=== PATIENT | male | born 1930 | race Caucasian/White ===

== ENCOUNTER 2018-04-29 08:11 | Inpatient (IN) | payer MEDICARE, OTHER ==
[~2018-04-29 08:11] MED LIST: Acetaminophen/oxyCODONE 325-5 MG Tab PO PRN; Bisacodyl 5 MG Tab PO PRN; Ketorolac 15 MG/ML SDV IVPUSH PRN; Lidocaine 1%/Sod Bicarbonate in NS 8.4% 1 ML Syringe IDERM PRN; Magnesium Hydroxide 400 MG/5 ML Susp 30 ML Cup PO PRN; Morphine 2 MG/ML Syringe IVPUSH PRN; Morphine 8 MG, EPINEPHrine 0.3 MG, Cefuroxime 750 MG, Ketorolac 30 MG, Sodium Chloride ... ONE; Naloxone 0.4 MG/ML SDV IVPUSH PRN; Ondansetron 4 MG/2 ML SDV IVPUSH PRN; Sennosides 8.6 MG Tab PO PRN; Sodium Chloride 0.9% 10 ML Syringe FLUSH PRN; ceFAZolin 2 GM in Premix Bag 1 BAG IV SCH
[2018-04-29] MEDS ORDERED: oxyCODONE ER 10 MG TAB.ER PO ONE (08:30)
[2018-04-29] MEDS ORDERED: Acetaminophen 325 MG Tab PO ONE (08:30)
[2018-04-29] MEDS ORDERED: ceFAZolin 1 GM Vial ONE ×2 (08:48→11:23)
[2018-04-29] MEDS ORDERED: Vancomycin 1 GM SDV ONE (08:48)
[2018-04-29] MEDS ORDERED: Bupivacaine 0.25% 30 ML SDV ONE (08:49)
[2018-04-29] MEDS ORDERED: Iodine/Sodium Iodide 2% Tincture 30 ML Bottle ONE (08:49)
[2018-04-29] MEDS: Lactated Ringers 1,000 ML IV SCH ×3 (08:50→14:02)
--- NOTE | 2018-04-29 08:55 | PCM.PREANE ---
Preanesthetic Assessment - Procedure Proposed Procedure: Left Hip Total Arthroplasty - Anesthesia/Transfusion/Family Hx Anesthesia History: Prior Anesthesia Without Reaction Family History of Anesthesia Reaction: No Transfusion History: No Prior Transfusion(s) - Review of Systems General: No Symptoms Pulmonary: No Symptoms Cardiovascular: No Symptoms Gastrointestinal: No Symptoms Neurological: No Symptoms Other: Reports: Easy Bleeding, Easy Bruising, Diabetes (II) - Physical Assessment NPO Status Date: 04/28/18 NPO Status Time: 19:30 Pulse: 72 O2 Sat by Pulse Oximetry: 94 Respiratory Rate: 16 Blood Pressure: 137/85 Temperature: 37.4 C Height: 1.68 m Weight: 85.275 kg ASA Class: 3 Mental Status: Alert & Oriented x3 Dentition: Reports: [place](s), Caries Thyro-Mental Finger Breadths: 2 Mouth Opening Finger Breadths: 2 ROM/Head Extension: Limited/Partial Lungs: Clear to Auscultation, Normal Respiratory Effort Cardiovascular: Regular Rate, Regular Rhythm - Imaging/EKG Impressions: sinus rhythm boarderline T abnormalities - Allergies Allergies/Adverse Reactions: Allergies Allergy/AdvReac Type Severity Reaction Status Date / Time No Known Allergies Allergy Verified 04/25/18 10:37 - Anesthesia Plan Pre-Op Medication Ordered: Beta Vinny Beta Vinny: Metoprolol Med Last Dose Date: 04/29/18 Med Last Dose Time: 00:00 - Acknowledgements Anesthesia Type Planned: Spinal Pt an Appropriate Candidate for the Planned Anesthesia: Yes Alternatives and Risks of Anesthesia Discussed w Pt/Guardian: Yes Pt/Guardian Understands and Agrees with Anesthesia Plan: Yes PreAnesthesia Questionnaire HEENT History: Reports: Cataract, Hard of Hearing, Other (See Below) Other HEENT History: Bilateral impacted cerumen, epistaxis Cardiovascular History: Reports: CAD, High Cholesterol, Hypertension, [place] Respiratory History: Reports: PE Other Gastrointestinal History: Abdominal pain, blood in stool, elevated bilirubin Genitourinary History: Reports: Other (See Below) Other Genitourinary History: Hematuria, urinary frequency Musculoskeletal History: Reports: Osteoarthritis Other Musculoskeletal History: Left hip pain, left hand pain, right rib pain Neurological History: Reports: Concussion Psychiatric History: Reports: Anxiety Endocrine/Metabolic History: Reports: Diabetes, Type II Hematologic History: Reports: Other (See Below) Other Hematologic History: Thrombocytopenia, blood clotting disorder Immunologic History: Reports: None Oncologic (Cancer) History: Reports: Other (See Below) Other Oncologic History: Neoplasm of skin Dermatologic History: Reports: Other (See Below) Other Dermatologic History: Abrasion of face, actinic keratosis, rash - Infectious Disease History Infectious Disease History: Reports: Measles - Past Surgical History Head Surgeries/Procedures: Reports: None HEENT Surgical History: Reports: Cataract Surgery Cardiovascular Surgical History: Reports: None Respiratory Surgical History: Reports: None GI Surgical History: Reports: Appendectomy Other GI Surgeries/Procedures: Abdominal surgery Male Surgical History: Reports: None Endocrine Surgical History: Reports: None Neurological Surgical History: Reports: None Other Musculoskeletal Surgeries/Procedures:: Right shoulder repair Oncologic Surgical History: Reports: None Dermatological Surgical History: Reports: None - SUBSTANCE USE Smoking Status *Q: Former Smoker Tobacco Use Within Last Twelve Months: No Second Hand Smoke Exposure: No Days Per Week of Alcohol Use: 0 Number of Drinks Per Day: 0 Total Drinks Per Week: 0 Recreational Drug Use History: No - HOME MEDS Home Medications: Home Meds FA/Lycopene/Lut/MV,Ca,Iron,Min [Centrum] 1 tab PO DAILY 09/20/16 [History] Finasteride 5 mg PO DAILY 09/20/16 [History] Isosorbide Mononitrate [Imdur] 30 mg PO DAILY 09/20/16 [History] Metoprolol Succinate 12.5 mg PO DAILY 09/20/16 [History] Simvastatin [Zocor] 40 mg PO BEDTIME 09/20/16 [History] Warfarin [Coumadin] 5 mg PO SUMOTUWEFRSA 09/20/16 [History] Warfarin [Coumadin] 7.5 mg PO TH 09/20/16 [History] Acetaminophen [Acetaminophen Extra Strength] 1,000 mg PO WITHLUNCH 04/25/18 [ History] Aspirin [Halfprin] 81 mg PO DAILY 04/25/18 [History] Hydrocortisone [Hydrocortisone 2.5% Crm] 1 applic RECTAL DAILY PRN 04/25/18 [ History] Nitroglycerin [Nitrostat] 0.4 mg SL ASDIRECTED PRN 04/25/18 [History] Tamsulosin [Tamsulosin 24 Hr] 0.4 mg PO DAILY 04/25/18 [History] traMADol [Ultram] 50 mg PO BID 04/25/18 [History] - CURRENT (IN HOUSE) MEDS Current Meds: Current Medications Bisacodyl (Dulcolax) 5 mg PO DAILY PRN PRN Reason: Constipation Docusate Sodium (Colace) 100 mg PO BID [facility] Famotidine (Pepcid) 20 mg PO Q12H [facility] Lactated Ringer's (Ringers, Lactated) 1,000 mls @ 125 mls/hr IV ASDIRECTED [facility] Ketorolac Tromethamine (Toradol) 15 mg IVPUSH Q6H PRN PRN Reason: Pain Lidocaine/Sodium Bicarbonate (Buffered Lidocaine 1% In Ns 8.4%) 0.25 ml IDERM ONETIME PRN PRN Reason: Prior to IV Start Stop: 04/29/18 18:00 Magnesium Hydroxide (Milk Of Magnesia) 30 ml PO BID PRN PRN Reason: Constipation Morphine Sulfate (Morphine) 2 mg IVPUSH Q2H PRN PRN Reason: Breakthrough Pain Naloxone HCl (Narcan) 0.1 mg IVPUSH Q5M PRN PRN Reason: Oversedation Ondansetron HCl (Zofran) 4 mg IVPUSH Q6H PRN PRN Reason: Nausea/Vomiting Oxycodone/Acetaminophen (Percocet 325-5 Mg) 1 - 2 tab PO Q4H PRN PRN Reason: Pain Pregabalin (Lyrica) 50 mg PO DAILY [facility] Stop: 04/29/18 11:00 Senna (Senna) 8.6 mg PO BID PRN PRN Reason: Constipation Sodium Chloride (Saline Flush) 10 ml FLUSH ASDIRECTED PRN PRN Reason: Keep Vein Open Warfarin Sodium (Pharmacy To Dose - Warfarin) 1 dose .XX ASDIRECTED [facility] Discontinued Medications Acetaminophen (Tylenol) 975 mg PO NOW ONE Stop: 04/29/18 08:31 Morphine Sulfate 8 mg/Epinephrine HCl 0.3 mg/Cefuroxime Sodium 750 mg/Ketorolac Tromethamine 30 mg/Sodium Chloride 27.9 ml 0 mg .XX ONETIME ONE Stop: 04/29/18 06:59 Cefazolin Sodium/Dextrose 2 gm (/ Premix) 50 mls @ 100 mls/hr IV Q8H [facility] Stop: 04/29/18 23:29 Oxycodone HCl (Oxycontin) 10 mg PO ONETIME ONE Stop: 04/29/18 08:31
[2018-04-29] MEDS ORDERED: Pregabalin 25 MG Cap PO SCH (09:00)
[2018-04-29] MEDS ORDERED: fentaNYL 100 MCG/2 ML SDV ONE (09:43)
[2018-04-29] MEDS ORDERED: Propofol 200 MG/20 ML SDV ONE ×3 (09:43→12:23)
[2018-04-29] MEDS ORDERED: Bupivacaine 0.75% 30 ML SDV ONE (09:48)
[2018-04-29] MEDS ORDERED: Ketamine 500 mg/10 ML MDV ONE (09:48)
[2018-04-29] MEDS ORDERED: Morphine PF 10 MG/10 ML SDV ONE (09:55)
[2018-04-29] MEDS ORDERED: ePHEDrine/Normal Saline 25 MG/5 ML Syringe ONE ×2 (11:05→11:25)
[2018-04-29] MEDS ORDERED: Phenylephrine/Normal Saline 100 MCG/ML 10 ML Syringe ONE ×2 (11:31→12:55)
[2018-04-29] MEDS ORDERED: Lactated Ringers 1,000 ML ONE (11:56)
[2018-04-29] MEDS ORDERED: diphenhydrAMINE 50 MG/ML SDV IVPUSH PRN (13:18)
--- NOTE | 2018-04-29 13:20 | PCM.POSTAN ---
POST ANESTHESIA ASSESSMENT - MENTAL STATUS Mental Status: Somnolent - VITAL SIGNS Pulse Rate: 77 SaO2: 95 Resp Rate: 19 Blood Pressure: 125/66 Temperature: 36.8 C - RESPIRATORY Respiratory Status: Respiratory Rate WNL, Airway Patent, O2 Saturation Stable, Supplemental Oxygen - CARDIOVASCULAR CV Status: Pulse Rate WNL, Blood Pressure Stable - GASTROINTESTINAL GI Status: No Symptoms - PAIN Pain Score: 0 - POST OP HYDRATION Hydration Status: Adequate & Stable - OBSERVATIONS Free Text/Narrative:: no anesthesia complications noted
[2018-04-29] MEDS ORDERED: Nitroglycerin 0.4 MG Tab.SL SL PRN (14:17)
[2018-04-29] MEDS ORDERED: HYDROCORTISONE 2.5% RECTAL PRN (14:17)
--- NOTE | 2018-04-29 14:22 | PCM.OPNOTE ---
- General Post-Op/Procedure Note Date of Surgery/Procedure: 04/29/18 Operative Procedure(s): left total hip arthroplasty Pre Op Diagnosis: left hip osteoarthrosis Post-Op Diagnosis: Same Anesthesia Technique: Local, MAC, Spinal Primary Surgeon: Edgardo Boo Anesthesia Provider: Malcom Trujillo Gre Tutor: Kristen Villatoro Gre Tutor: Rianna Finley EBL in mLs: 350 Complications: None Condition: Good Free Text/Narrative:: Intake & Output 04/28/18 04/29/18 04/29/18 22:59 06:59 14:59 Intake Total 600 Output Total 675 Balance -75 size 62 cup size 6 stem 42 +0
--- NOTE | 2018-04-29 15:28 | PCM.CONS ---
H&P History of Present Illness - General Date of Service: 04/29/18 Admit Problem/Dx: Admission Diagnosis/Problem Admission Diagnosis/Problem Osteoarthritis of hip Source of Information: Patient, Old Records, Provider, RN, RN Notes Reviewed History Limitations: Reports: No Limitations - History of Present Illness Initial Comments - Free Text/Narative: Abraham Griffin is a 87 yo male patient of Dr. Boo who is post-operative day 0 of Left JENNA. Hospital medicine was consulted for post-operative medical care. At this time He is lying in bed. Pain is controlled and currently absent. He denies any chest pain, shortness of breath, palpitations, nausea or vomiting. He carries a history of: WRANGELL, CAD, HLD, HTN, LA, PE, OA, hematuria, anxiety, Type II DM, thrombocytopenia, prostate ca, mild aortic stenosis, defect, clotting disorder, neoplasm of skin, prostate cancer, measles, anxiety. He is a former smoker. He is a full code. His primary care provider is Terri Rosario PA-C in [place]. - Related Data Allergies/Adverse Reactions: Allergies Allergy/AdvReac Type Severity Reaction Status Date / Time No Known Allergies Allergy Verified 04/29/18 10:09 Home Medications: Home Meds FA/Lycopene/Lut/MV,Ca,Iron,Min [Centrum] 1 tab PO DAILY 09/20/16 [History] Finasteride 5 mg PO DAILY 09/20/16 [History] Isosorbide Mononitrate [Imdur] 30 mg PO DAILY 09/20/16 [History] Metoprolol Succinate 12.5 mg PO DAILY 09/20/16 [History] Simvastatin [Zocor] 40 mg PO BEDTIME 09/20/16 [History] Warfarin [Coumadin] 5 mg PO SUMOTUWEFRSA 09/20/16 [History] Warfarin [Coumadin] 7.5 mg PO TH 09/20/16 [History] Aspirin [Halfprin] 81 mg PO DAILY 04/25/18 [History] Hydrocortisone [Hydrocortisone 2.5% Crm] 1 applic RECTAL DAILY PRN 04/25/18 [ History] Nitroglycerin [Nitrostat] 0.4 mg SL ASDIRECTED PRN 04/25/18 [History] Tamsulosin [Tamsulosin 24 Hr] 0.4 mg PO DAILY 04/25/18 [History] traMADol [Ultram] 50 mg PO Q6H 04/25/18 [History] Timolol Maleate [Timoptic 0.5% Opth Soln] 5 ml OP DAILY 04/29/18 [History] Past Medical History HEENT History: Reports: Cataract, Hard of Hearing, Other (See Below) Other HEENT History: Bilateral impacted cerumen, epistaxis Cardiovascular History: Reports: CAD, High Cholesterol, Hypertension, [place] Respiratory History: Reports: PE Other Gastrointestinal History: Abdominal pain, blood in stool, elevated bilirubin Genitourinary History: Reports: BPH, Other (See Below) Other Genitourinary History: Hematuria, urinary frequency Musculoskeletal History: Reports: Osteoarthritis Other Musculoskeletal History: Left hip pain, left hand pain, right rib pain Neurological History: Reports: Concussion Psychiatric History: Reports: Anxiety Endocrine/Metabolic History: Reports: Diabetes, Type II Hematologic History: Reports: Other (See Below) Other Hematologic History: Thrombocytopenia, blood clotting disorder Immunologic History: Reports: None Oncologic (Cancer) History: Reports: Prostate, Other (See Below) Other Oncologic History: Neoplasm of skin Dermatologic History: Reports: Other (See Below) Other Dermatologic History: Abrasion of face, actinic keratosis, rash - Infectious Disease History Infectious Disease History: Reports: Measles - Past Surgical History Head Surgeries/Procedures: Reports: None HEENT Surgical History: Reports: Cataract Surgery Cardiovascular Surgical History: Reports: None Respiratory Surgical History: Reports: None GI Surgical History: Reports: Appendectomy Other GI Surgeries/Procedures: Abdominal surgery Other Male Surgeries/Procedures: prostate biopsy. Endocrine Surgical History: Reports: None Neurological Surgical History: Reports: None Musculoskeletal Surgical History: Reports: Shoulder Replacement Other Musculoskeletal Surgeries/Procedures:: Right shoulder repair Oncologic Surgical History: Reports: None Dermatological Surgical History: Reports: None Social & Family History - Family History Family Medical History: Noncontributory Cardiac: Reports: High Cholesterol, [place] Endocrine/Metabolic: Reports: Diabetes, Type I Oncologic: Reports: Other (See Below) Other Oncologic Family History: 2 sisters have cancer, unknown type - Tobacco Use Smoking Status *Q: Former Smoker Used Tobacco, but Quit: Yes Month/Year Tobacco Last Used: 1959 Tobacco Use Comment: "Quit 50-60 years ago" Second Hand Smoke Exposure: No - Caffeine Use Caffeine Use: Reports: None - Alcohol Use Days Per Week of Alcohol Use: 0 Number of Drinks Per Day: 0 Total Drinks Per Week: 0 - Recreational Drug Use Recreational Drug Use: No Drug Use in Last 12 Months: No - Living Situation & Occupation Living situation: Reports: Other, Single H&P Review of Systems - Review of Systems: Review Of Systems: See Below General: Reports: No Symptoms HEENT: Reports: No Symptoms Pulmonary: Reports: No Symptoms. Denies: Shortness of Breath, Wheezing, Cough Cardiovascular: Reports: No Symptoms. Denies: Chest Pain, Dyspnea on Exertion, Edema, Lightheadedness Gastrointestinal: Reports: No Symptoms. Denies: Abdominal Pain, Constipation, Diarrhea, Nausea, Vomiting Genitourinary: Reports: No Symptoms Musculoskeletal: Reports: Joint Pain Skin: Reports: No Symptoms Psychiatric: Reports: No Symptoms Neurological: Reports: No Symptoms Hematologic/Lymphatic: Reports: No Symptoms Immunologic: Reports: No Symptoms Exam - Exam Exam: See Below - Vital Signs Vital Signs: Last Vital Signs Temp 98.1 F 04/29/18 14:30 Pulse 65 04/29/18 14:30 Resp 18 04/29/18 14:30 BP 102/63 04/29/18 14:30 Pulse Ox 96 04/29/18 14:30 Weight: 188 lb - Exam Quality Assessment: Supplemental Oxygen, DVT Prophylaxis General: Alert, Oriented, Cooperative, Mild Distress HEENT: Conjunctiva Clear, EACs Clear, EOMI, Hearing Intact, Mucosa Moist & [place] , Nares Patent, Posterior Pharynx Clear, PERRLA Neck: Supple, Trachea Midline Lungs: Clear to Auscultation, Normal Respiratory Effort Cardiovascular: Regular Rate, Regular Rhythm GI/Abdominal Exam: Normal Bowel Sounds, Soft, Non-Tender, No Distention (Male) Exam: Deferred Rectal (Males) Exam: Deferred Back Exam: Normal Inspection, Full Range of Motion Extremities: No Pedal Edema, Normal Capillary Refill, Leg Pain, Limited Range of Motion, Other ([place] bandae in place on left leg. Bandage is dry and intact. Cooling pack in place ) Peripheral Pulses: 2+: Radial (L), Radial (R), Posterior Tibial (L), Posterior Tibial (R), Dorsalis Pedis (L), Dorsalis Pedis (R) Skin: Warm, Dry, Intact Neurological: Cranial Nerves Intact (grossly ) Neuro Extensive - Mental Status: Alert, Oriented x3, Normal Mood/Affect, Normal Cognition Psychiatric: Alert, Normal Affect, Normal Mood - Patient Data Lab Results Last 24 hrs: Laboratory Results - last 24 hr 04/29/18 04/29/18 04/29/18 Range/Units 08:50 08:50 10:24 WBC 7.09 (4.23-9.07) K/mm3 RBC 4.23 L (4.63-6.08) M/mm3 Hgb 13.9 (13.7-17.5) gm/L Hct 41.9 (40.1-51.0) % MCV 99.1 H (79.0-92.2) fl MCH 32.9 H (25.7-32.2) pg MCHC 33.2 (32.2-35.5) g/dl RDW Std Deviation 50.6 H (35.1-43.9) fL Plt Count 146 L (163-337) K/mm3 MPV 10.8 (9.4-12.3) fl Neut % (Auto) 67.9 (34.0-67.9) % Lymph % (Auto) 21.0 L (21.8-53.1) % [place] % (Auto) 9.4 (5.3-12.2) % Eos % (Auto) 1.0 (0.8-7.0) Baso % (Auto) 0.4 (0.1-1.2) % Neut # (Auto) 4.81 (1.78-5.38) K/mm3 Lymph # (Auto) 1.49 (1.32-3.57) K/mm3 [place] # (Auto) 0.67 (0.30-0.82) K/mm3 Eos # (Auto) 0.07 (0.04-0.54) K/mm3 Baso # (Auto) 0.03 (0.01-0.08) K/mm3 PT 10.7 (9.5-12.1) SECONDS INR 0.98 APTT 26 (24-31) SECONDS POC Glucose (83-110) mg/dL Blood Type A POSITIVE Gel Antibody Screen Negative 04/29/18 Range/Units 13:35 WBC (4.23-9.07) K/mm3 RBC (4.63-6.08) M/mm3 Hgb (13.7-17.5) gm/L Hct (40.1-51.0) % MCV (79.0-92.2) fl MCH (25.7-32.2) pg MCHC (32.2-35.5) g/dl RDW Std Deviation (35.1-43.9) fL Plt Count (163-337) K/mm3 MPV (9.4-12.3) fl Neut % (Auto) (34.0-67.9) % Lymph % (Auto) (21.8-53.1) % [place] % (Auto) (5.3-12.2) % Eos % (Auto) (0.8-7.0) Baso % (Auto) (0.1-1.2) % Neut # (Auto) (1.78-5.38) K/mm3 Lymph # (Auto) (1.32-3.57) K/mm3 [place] # (Auto) (0.30-0.82) K/mm3 Eos # (Auto) (0.04-0.54) K/mm3 Baso # (Auto) (0.01-0.08) K/mm3 PT (9.5-12.1) SECONDS INR APTT (24-31) SECONDS POC Glucose 118 H (83-110) mg/dL Blood Type Gel Antibody Screen Result Diagrams: 04/29/18 10:24 Consult PN Assessment/Plan POD#: 0 Procedures: Procedures ANTITHROMBIN III ACTIVITY (12/05/16) ASSAY OF CK (CPK) (05/05/15) ASSAY OF HOMOCYSTINE (12/05/16) ASSAY OF LACTIC ACID (05/02/16) ASSAY OF LIPASE (05/02/16) ASSAY OF MAGNESIUM (05/02/16) ASSAY OF TROPONIN QUANT (09/20/16) ASSAY THYROID STIM HORMONE (10/03/16) BETA-2 GLYCOPROTEIN ANTIBODY (12/05/16) BILIRUBIN DIRECT (06/14/16) BILIRUBIN TOTAL (05/02/16) C DIFF AMPLIFIED PROBE (05/10/16) C-REACTIVE PROTEIN (05/02/16) CARDIOLIPIN ANTIBODY EA IG (12/05/16) CHEST X-RAY 1 VIEW FRONTAL (09/20/16) CHEST X-RAY 2VW FRONTAL&LATL (05/02/16) CLOT INHIBIT PROT C ACTIVITY (12/05/16) CLOT INHIBIT PROT S FREE (12/05/16) COMPLETE CBC AUTOMATED (08/22/17) COMPLETE CBC W/AUTO DIFF WBC (09/21/17) COMPREHEN METABOLIC PANEL (04/15/18) CT ABD & PELV W/CONTRAST (05/02/16) CULTURE AEROBIC IDENTIFY (04/07/15) CULTURE OTHR SPECIMN AEROBIC (04/07/15) DRAIN/INJ JOINT/BURSA W/O US (03/12/18) DXA BONE DENSITY AXIAL (04/24/18) ECHO EXAM OF ABDOMEN (05/02/16) ELECTROCARDIOGRAM TRACING (09/20/16) EMERGENCY DEPT VISIT (09/20/16) F2 GENE (12/05/16) F5 GENE (12/05/16) FIBRIN DEGRADATION QUANT (09/20/16) GLYCOSYLATED HEMOGLOBIN TEST (08/08/17) HEMOGLOBIN (05/23/16) HEPATOBIL SYST IMAGE W/DRUG (05/02/16) HYDRATE IV INFUSION ADD-ON (05/02/16) HYDRATION IV INFUSION INIT (09/20/16) LIPID PANEL (04/09/17) METABOLIC PANEL TOTAL CA (08/22/17) MICROBE SUSCEPTIBLE ALFONSO (04/07/15) MR-STAPH DNA AMP PROBE (04/15/18) OT EVALUATION (05/02/16) PROTHROMBIN TIME (04/24/18) PT EVALUATION (05/02/16) RBC SED RATE AUTOMATED (05/02/16) ROUTINE VENIPUNCTURE (04/24/18) CHAPO VIPER VENOM DILUTED (12/05/16) THER/PROPH/DIAG INJ IV PUSH (05/02/16) THER/PROPH/DIAG INJ SC/IM (05/02/16) THROMBOPLASTIN TIME PARTIAL (12/05/16) TTE W/DOPPLER COMPLETE (04/24/18) TX/PRO/DX INJ NEW DRUG ADDON (05/02/16) UR ALBUMIN QUANTITATIVE (04/09/17) URINALYSIS AUTO W/O SCOPE (06/16/15) URINALYSIS AUTO W/SCOPE (09/20/16) URINE CULTURE/COLONY COUNT (04/15/18) VANOMYCIN DNA AMP PROBE (05/10/16) X-RAY EXAM CHEST 2 VIEWS (04/15/18) X-RAY EXAM OF HAND (12/22/14) X-RAY EXAM UNILAT RIBS/CHEST (03/27/18) (1) S/P total hip arthroplasty SNOMED Code(s): 191692009206, 547638704512 Code(s): Z96.649 - PRESENCE OF UNSPECIFIED ARTIFICIAL HIP JOINT Priority: High Current Visit: Yes Qualifiers: Laterality: left Qualified Code(s): Z96.642 - Presence of left artificial hip joint (2) Osteoarthritis SNOMED Code(s): 293862187 Code(s): M19.90 - UNSPECIFIED OSTEOARTHRITIS, UNSPECIFIED SITE Priority: High Current Visit: Yes Qualifiers: Osteoarthritis location: hip Osteoarthritis type: primary Laterality: left Qualified Code(s): M16.12 - Unilateral primary osteoarthritis, left hip (3) History of myocardial infarction SNOMED Code(s): 066695146 Code(s): I25.2 - OLD MYOCARDIAL INFARCTION Priority: Medium Current Visit : No (4) CAD (coronary artery disease) SNOMED Code(s): 32127155 Code(s): I25.10 - ATHSCL HEART DISEASE OF [place] CORONARY ARTERY W/O ANG PCTRS Priority: Medium Current Visit: No Qualifiers: Coronary Disease-Associated Artery/Lesion type: unspecified vessel or lesion type Associated angina: angina presence unspecified (5) HLD (hyperlipidemia) SNOMED Code(s): 71353108 Code(s): E78.5 - HYPERLIPIDEMIA, UNSPECIFIED Priority: Medium Current Visit: No Qualifiers: Hyperlipidemia type: unspecified Qualified Code(s): E78.5 - Hyperlipidemia , unspecified (6) HTN (hypertension) SNOMED Code(s): 17260194 Code(s): I10 - ESSENTIAL (PRIMARY) HYPERTENSION Priority: Medium Current Visit: No Qualifiers: Hypertension type: unspecified Qualified Code(s): I10 - Essential (primary ) hypertension (7) History of pulmonary embolism SNOMED Code(s): 549123842 Code(s): Z86.711 - PERSONAL HISTORY OF PULMONARY EMBOLISM Priority: Medium Current Visit: No (8) Thrombocytopenia SNOMED Code(s): 445950696 Code(s): D69.6 - THROMBOCYTOPENIA, UNSPECIFIED Priority: Medium Current Visit: No (9) Type II diabetes mellitus SNOMED Code(s): 58224193 Code(s): E11.9 - TYPE 2 DIABETES MELLITUS WITHOUT COMPLICATIONS Priority: High Current Visit: Yes Qualifiers: Diabetes mellitus detention insulin 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 Diabetes mellitus complication status: with unspecified complications Qualified Code(s) : E11.8 - Type 2 diabetes mellitus with unspecified complications; Z79.4 - terminal operations supervisor (current) use of insulin (10) Anxiety SNOMED Code(s): 60401985 Code(s): F41.9 - ANXIETY DISORDER, UNSPECIFIED Priority: Medium Current Visit: No (11) History of prostate cancer SNOMED Code(s): 797060983 Code(s): Z85.46 - PERSONAL HISTORY OF MALIGNANT NEOPLASM OF PROSTATE Priority: Medium Current Visit: No Problem List Initiated/Reviewed/Updated: Yes Plan: I/P: Acute: S/P left total knee arthroplasty - post-operative day 0 -DVT prophylaxis and pain management per primary care team -PT/OT -IS/RT -Monitor oxygen saturation -Titrate oxygen as needed -Vital signs stable -Monitor labs -Pre-operative Hgb was 15.3 -Pre-operative platelets was 104 -Pre-operative eGFR was >60 -A1C of 6.65 Osteoarthritis of left knee -Pain management per primary care team Chronic: WRANGELL CAD HLD HTN LA PE OA hematuria anxiety Type II DM thrombocytopenia prostate cancer mild aortic stenosis defect clotting disorder neoplasm of skin prostate cancer measles anxiety Plan: CM for discharge planning GI prophylaxis Home medications as indicated Other orders as listed above Routine AM labs He is a full code. His PCP is Terri Rosario PA-C in [place]. Thank you for allowing us to participate in the care of this patient!! Requesting Provider: Dr. Boo Date Consult Requested: 04/29/18 Reason for Consult: Post-operative medical managment Patient History Reviewed: Yes Admission H&P Reviewed: Yes Time Spent (in minutes): 50
--- NOTE | 2018-04-29 16:43 | CR ---
Pelvis and left hip: AP view of the pelvis was obtained as well as lateral view of the left hip. Moderate joint space narrowing is noted within the right hip. Left hip prosthesis is seen. Bony structures are osteopenic. No acute fracture or other bony abnormality is seen. Soft tissue air is noted around the left hip compatible with recent surgery. Impression: 1. Recently placed left hip prosthesis. 2. Other incidental findings. Diagnostic code #3
[2018-04-29] MEDS: Enoxaparin 30 MG/0.3 ML Syringe SUBCUT SCH (17:21)
[2018-04-29] MEDS ORDERED: Warfarin 5 MG Tab PO ONE (18:00)
[2018-04-29] MEDS: Famotidine 20 MG Tab PO SCH (21:25)
[2018-04-29] MEDS: traMADol 50 MG Tab PO SCH (21:25)
[2018-04-29] MEDS: Simvastatin 40 MG Tab PO SCH (21:25)
[2018-04-29] MEDS: Docusate Sodium 100 MG Cap PO SCH (21:25)
[2018-04-30] MEDS: Acetaminophen/HYDROcodone 325-5 MG Tab PO PRN ×4 (02:51→22:08)
[2018-04-30] MEDS: ceFAZolin 2 GM in Premix Bag 1 BAG IV SCH ×3 (02:59→18:18)
[2018-04-30] MEDS: Enoxaparin 30 MG/0.3 ML Syringe SUBCUT SCH ×2 (03:48→16:40)
--- NOTE | 2018-04-30 06:27 | PCM.CONSN ---
- General Info Date of Service: 04/30/18 Admission Dx/Problem (Free Text): Admission Diagnosis/Problem Admission Diagnosis/Problem Osteoarthritis of hip Subjective Update: In to see Brother Elias. He is doing ok and has been working with therapies. He reports pain of 40-50/10 currently after working with PT/OT but does not appear to be in any obvious pain. Nursing reports patient has just had pain pill. 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 He has been eating. He is not on any oxygen and doing well on room air. Likely discharge for SNF rehab stay. Functional Status: Reports: Pain Controlled, Tolerating Diet, Ambulating, Urinating, Incentive Spirometry. Denies: New Symptoms - Review of Systems General: Reports: No Symptoms HEENT: Reports: No Symptoms Pulmonary: Reports: No Symptoms Cardiovascular: Reports: No Symptoms Gastrointestinal: Reports: No Symptoms Genitourinary: Reports: Incontinence (chronic ), Retention (acute on chronic ). Denies: Burning, Pain Musculoskeletal: Reports: Joint Pain Skin: Reports: No Symptoms Neurological: Reports: No Symptoms Psychiatric: Reports: No Symptoms - Patient Data Vitals - Most Recent: Last Vital Signs Temp 98.1 F 04/30/18 03:24 Pulse 55 L 04/30/18 03:24 Resp 16 04/30/18 05:00 BP 100/58 L 04/30/18 03:24 Pulse Ox 97 04/30/18 05:00 Weight - Most Recent: 192 lb 12.8 oz I&O - Last 24 Hours: Intake & Output 04/29/18 04/29/18 04/30/18 14:59 22:59 06:59 Intake Total 600 0 850 Output Total 675 300 Balance -75 0 550 Lab Results Last 24 Hours: Laboratory Results - last 24 hr 04/29/18 04/29/18 04/29/18 Range/Units 08:50 08:50 10:24 WBC 7.09 (4.23-9.07) K/mm3 RBC 4.23 L (4.63-6.08) M/mm3 Hgb 13.9 (13.7-17.5) gm/L Hct 41.9 (40.1-51.0) % MCV 99.1 H (79.0-92.2) fl MCH 32.9 H (25.7-32.2) pg MCHC 33.2 (32.2-35.5) g/dl RDW Std Deviation 50.6 H (35.1-43.9) fL Plt Count 146 L (163-337) K/mm3 MPV 10.8 (9.4-12.3) fl Neut % (Auto) 67.9 (34.0-67.9) % Lymph % (Auto) 21.0 L (21.8-53.1) % Desha % (Auto) 9.4 (5.3-12.2) % Eos % (Auto) 1.0 (0.8-7.0) Baso % (Auto) 0.4 (0.1-1.2) % Neut # (Auto) 4.81 (1.78-5.38) K/mm3 Lymph # (Auto) 1.49 (1.32-3.57) K/mm3 Desha # (Auto) 0.67 (0.30-0.82) K/mm3 Eos # (Auto) 0.07 (0.04-0.54) K/mm3 Baso # (Auto) 0.03 (0.01-0.08) K/mm3 PT 10.7 (9.5-12.1) SECONDS INR 0.98 APTT 26 (24-31) SECONDS POC Glucose (83-110) mg/dL Blood Type A POSITIVE Gel Antibody Screen Negative 04/29/18 Range/Units 13:35 WBC (4.23-9.07) K/mm3 RBC (4.63-6.08) M/mm3 Hgb (13.7-17.5) gm/L Hct (40.1-51.0) % MCV (79.0-92.2) fl MCH (25.7-32.2) pg MCHC (32.2-35.5) g/dl RDW Std Deviation (35.1-43.9) fL Plt Count (163-337) K/mm3 MPV (9.4-12.3) fl Neut % (Auto) (34.0-67.9) % Lymph % (Auto) (21.8-53.1) % Desha % (Auto) (5.3-12.2) % Eos % (Auto) (0.8-7.0) Baso % (Auto) (0.1-1.2) % Neut # (Auto) (1.78-5.38) K/mm3 Lymph # (Auto) (1.32-3.57) K/mm3 Desha # (Auto) (0.30-0.82) K/mm3 Eos # (Auto) (0.04-0.54) K/mm3 Baso # (Auto) (0.01-0.08) K/mm3 PT (9.5-12.1) SECONDS INR APTT (24-31) SECONDS POC Glucose 118 H (83-110) mg/dL Blood Type Gel Antibody Screen Med Orders - Current: Current Medications Hydrocodone Bitart/Acetaminophen ([place] 325-5 Mg) 1 - 2 tab PO Q4H PRN PRN Reason: Pain Last Admin: 04/30/18 02:51 Dose: 2 tab Aspirin (Halfprin) 81 mg PO DAILY [facility] Bisacodyl (Dulcolax) 5 mg PO DAILY PRN PRN Reason: Constipation Docusate Sodium (Colace) 100 mg PO BID [facility] Last Admin: 04/29/18 21:25 Dose: 100 mg Enoxaparin Sodium (Lovenox) 30 mg SUBCUT Q12H [facility] Last Admin: 04/30/18 03:48 Dose: 30 mg Famotidine (Pepcid) 20 mg PO Q12H [facility] Last Admin: 04/29/18 21:25 Dose: 20 mg Finasteride (Proscar) 5 mg PO DAILY [facility] Cefazolin Sodium/Dextrose 2 gm (/ Premix) 50 mls @ 100 mls/hr IV Q8H [facility] Stop: 04/30/18 19:29 Last Admin: 04/30/18 02:59 Dose: 100 mls/hr Isosorbide Mononitrate (Imdur) 30 mg PO DAILY [facility] Ketorolac Tromethamine (Toradol) 15 mg IVPUSH Q6H PRN PRN Reason: Pain Magnesium Hydroxide (Milk Of Magnesia) 30 ml PO BID PRN PRN Reason: Constipation Metoprolol Succinate (Toprol Xl) 12.5 mg PO DAILY [facility] Morphine Sulfate (Morphine) 2 mg IVPUSH Q2H PRN PRN Reason: Breakthrough Pain Multivitamins (Thera) 1 each PO DAILY [facility] Nitroglycerin (Nitrostat) 0.4 mg SL ASDIRECTED PRN PRN Reason: Chest Pain Ondansetron HCl (Zofran) 4 mg IVPUSH Q6H PRN PRN Reason: Nausea/Vomiting Hydrocortisone 2.5% (1 Applic) 0 each RECTAL DAILY PRN PRN Reason: Hemorrhoids Senna (Senna) 8.6 mg PO BID PRN PRN Reason: Constipation Simvastatin (Zocor) 40 mg PO BEDTIME [facility] Last Admin: 04/29/18 21:25 Dose: 40 mg Sodium Chloride (Saline Flush) 10 ml FLUSH ASDIRECTED PRN PRN Reason: Keep Vein Open Tamsulosin HCl (Flomax) 0.4 mg PO DAILY [facility] Tramadol HCl (Ultram) 50 mg PO BID [facility] Last Admin: 04/29/18 21:25 Dose: 50 mg Warfarin Sodium (Pharmacy To Dose - Warfarin) 1 dose .XX ASDIRECTED [facility] Discontinued Medications Acetaminophen (Tylenol) 975 mg PO NOW ONE Stop: 04/29/18 08:31 Last Admin: 04/29/18 10:30 Dose: 975 mg Bupivacaine HCl (Marcaine 0.25%) Confirm Administered Dose 30 ml .ROUTE .STK- MED ONE Stop: 04/29/18 08:50 Last Admin: 04/29/18 12:43 Dose: 30 ml Bupivacaine HCl (Sensorcaine-Mpf 0.75%) Confirm Administered Dose 30 ml .ROUTE .STK-MED ONE Stop: 04/29/18 09:49 Cefazolin Sodium (Ancef) Confirm Administered Dose 2 gm .ROUTE .STK-MED ONE Stop: 04/29/18 08:49 Cefazolin Sodium (Ancef) Confirm Administered Dose 2 gm .ROUTE .STK-MED ONE Stop: 04/29/18 11:24 Last Admin: 04/29/18 12:37 Dose: 2 gm Morphine Sulfate 8 mg/Epinephrine HCl 0.3 mg/Cefuroxime Sodium 750 mg/Ketorolac Tromethamine 30 mg/Sodium Chloride 27.9 ml 0 mg .XX ONETIME ONE Stop: 04/29/18 06:59 Last Admin: 04/29/18 12:42 Dose: 788.3 mg Diphenhydramine HCl (Benadryl) 25 mg IVPUSH Q6H PRN PRN Reason: Itching Stop: 04/29/18 23:00 Ephedrine Sulfate (Ephedrine In Ns) Confirm Administered Dose 25 mg .ROUTE .STK- MED ONE Stop: 04/29/18 11:06 Ephedrine Sulfate (Ephedrine In Ns) Confirm Administered Dose 25 mg .ROUTE .STK- MED ONE Stop: 04/29/18 11:26 Fentanyl (Sublimaze) Confirm Administered Dose 100 mcg .ROUTE .STK-MED ONE Stop: 04/29/18 09:44 Lactated Ringer's (Ringers, Lactated) 1,000 mls @ 125 mls/hr IV ASDIRECTED [facility] Last Admin: 04/29/18 14:02 Dose: 125 mls/hr Cefazolin Sodium/Dextrose 2 gm (/ Premix) 50 mls @ 100 mls/hr IV Q8H [facility] Stop: 04/29/18 23:29 Last Admin: 04/30/18 02:53 Dose: Not Given Lactated Ringer's (Ringers, Lactated) Confirm Administered Dose 1,000 mls @ as directed .ROUTE .STK-MED ONE Stop: 04/29/18 11:57 Iodine (Iodine 2% Mild Tincture) Confirm Administered Dose 30 ml .ROUTE .STK- MED ONE Stop: 04/29/18 08:50 Last Admin: 04/29/18 12:35 Dose: 18 ml Ketamine HCl (Ketalar) Confirm Administered Dose 500 mg .ROUTE .STK-MED ONE Stop: 04/29/18 09:49 Lidocaine/Sodium Bicarbonate (Buffered Lidocaine 1% In Ns 8.4%) 0.25 ml IDERM ONETIME PRN PRN Reason: Prior to IV Start Stop: 04/29/18 18:00 Morphine Sulfate (Duramorph Pf) Confirm Administered Dose 10 mg .ROUTE .STK-MED ONE Stop: 04/29/18 09:56 Naloxone HCl (Narcan) 0.1 mg IVPUSH Q5M PRN PRN Reason: Oversedation Oxycodone HCl (Oxycontin) 10 mg PO ONETIME ONE Stop: 04/29/18 08:31 Last Admin: 04/29/18 10:30 Dose: 10 mg Oxycodone/Acetaminophen (Percocet 325-5 Mg) 1 - 2 tab PO Q4H PRN PRN Reason: Pain Phenylephrine HCl (Phenylephrine In Ns 100 Mcg/Ml) Confirm Administered Dose 1 mg .ROUTE .STK-MED ONE Stop: 04/29/18 11:32 Phenylephrine HCl (Phenylephrine In Ns 100 Mcg/Ml) Confirm Administered Dose 1 mg .ROUTE .STK-MED ONE Stop: 04/29/18 12:56 Pregabalin (Lyrica) 50 mg PO DAILY [facility] Stop: 04/29/18 11:00 Last Admin: 04/29/18 10:30 Dose: 50 mg Propofol (Diprivan 20 Ml) Confirm Administered Dose 200 mg .ROUTE .STK-MED ONE Stop: 04/29/18 09:44 Propofol (Diprivan 20 Ml) Confirm Administered Dose 200 mg .ROUTE .STK-MED ONE Stop: 04/29/18 11:37 Propofol (Diprivan 20 Ml) Confirm Administered Dose 200 mg .ROUTE .STK-MED ONE Stop: 04/29/18 12:24 Tranexamic Acid (Cyklokapron) Confirm Administered Dose 1,000 mg .ROUTE .STK- MED ONE Stop: 04/29/18 08:49 Last Admin: 04/29/18 12:44 Dose: 1,000 mg Vancomycin HCl (Vancomycin) Confirm Administered Dose 1 gm .ROUTE .STK-MED ONE Stop: 04/29/18 08:49 Last Admin: 04/29/18 12:45 Dose: 1 gm Warfarin Sodium (Coumadin) 5 mg PO ONETIME ONE Stop: 04/29/18 18:01 Last Admin: 04/29/18 17:21 Dose: 5 mg - Exam Quality Assessment: DVT Prophylaxis General: Alert, Oriented, Cooperative HEENT: Pupils Equal, Pupils Reactive, EOMI, Mucous Membr. Moist/[place] Neck: Supple, Trachea Midline, No JVD Lungs: Clear to Auscultation, Normal Respiratory Effort Cardiovascular: Regular Rate, Regular Rhythm GI/Abdominal Exam: Normal Bowel Sounds, Soft, Non-Tender, No Distention (Male) Exam: Deferred Back Exam: Normal Inspection, Full Range of Motion Extremities: No Pedal Edema, Normal Capillary Refill, Leg Pain, Limited Range of Motion, Other (Bandage in place on left leg. Cooling pack in place ) Peripheral Pulses: 2+: Radial (L), Radial (R), Posterior Tibial (L), Posterior Tibial (R), Dorsalis Pedis (L), Dorsalis Pedis (R) Skin: Warm, Dry, Intact Wound/Incisions: Dressing Dry and Intact, No Drainage Neurological: No New Focal Deficit Psy/Mental Status: Alert, Normal Affect, Normal Mood Consult PN Assessment/Plan POD#: 1 Procedures: Procedures ANTITHROMBIN III ACTIVITY (12/05/16) ASSAY OF CK (CPK) (05/05/15) ASSAY OF HOMOCYSTINE (12/05/16) ASSAY OF LACTIC ACID (05/02/16) ASSAY OF LIPASE (05/02/16) ASSAY OF MAGNESIUM (05/02/16) ASSAY OF TROPONIN QUANT (09/20/16) ASSAY THYROID STIM HORMONE (10/03/16) BETA-2 GLYCOPROTEIN ANTIBODY (12/05/16) BILIRUBIN DIRECT (06/14/16) BILIRUBIN TOTAL (05/02/16) C DIFF AMPLIFIED PROBE (05/10/16) C-REACTIVE PROTEIN (05/02/16) CARDIOLIPIN ANTIBODY EA IG (12/05/16) CHEST X-RAY 1 VIEW FRONTAL (09/20/16) CHEST X-RAY 2VW FRONTAL&LATL (05/02/16) CLOT INHIBIT PROT C ACTIVITY (12/05/16) CLOT INHIBIT PROT S FREE (12/05/16) COMPLETE CBC AUTOMATED (08/22/17) COMPLETE CBC W/AUTO DIFF WBC (09/21/17) COMPREHEN METABOLIC PANEL (04/15/18) CT ABD & PELV W/CONTRAST (05/02/16) CULTURE AEROBIC IDENTIFY (04/07/15) CULTURE OTHR SPECIMN AEROBIC (04/07/15) DRAIN/INJ JOINT/BURSA W/O US (03/12/18) DXA BONE DENSITY AXIAL (04/24/18) ECHO EXAM OF ABDOMEN (05/02/16) ELECTROCARDIOGRAM TRACING (09/20/16) EMERGENCY DEPT VISIT (09/20/16) F2 GENE (12/05/16) F5 GENE (12/05/16) FIBRIN DEGRADATION QUANT (09/20/16) GLYCOSYLATED HEMOGLOBIN TEST (08/08/17) HEMOGLOBIN (05/23/16) HEPATOBIL SYST IMAGE W/DRUG (05/02/16) HYDRATE IV INFUSION ADD-ON (05/02/16) HYDRATION IV INFUSION INIT (09/20/16) LIPID PANEL (04/09/17) METABOLIC PANEL TOTAL CA (08/22/17) MICROBE SUSCEPTIBLE ALFONSO (04/07/15) MR-STAPH DNA AMP PROBE (04/15/18) OT EVALUATION (05/02/16) PROTHROMBIN TIME (04/24/18) PT EVALUATION (05/02/16) RBC SED RATE AUTOMATED (05/02/16) ROUTINE VENIPUNCTURE (04/24/18) CHAPO VIPER VENOM DILUTED (12/05/16) THER/PROPH/DIAG INJ IV PUSH (05/02/16) THER/PROPH/DIAG INJ SC/IM (05/02/16) THROMBOPLASTIN TIME PARTIAL (12/05/16) TTE W/DOPPLER COMPLETE (04/24/18) TX/PRO/DX INJ NEW DRUG ADDON (05/02/16) UR ALBUMIN QUANTITATIVE (04/09/17) URINALYSIS AUTO W/O SCOPE (06/16/15) URINALYSIS AUTO W/SCOPE (09/20/16) URINE CULTURE/COLONY COUNT (04/15/18) VANOMYCIN DNA AMP PROBE (05/10/16) X-RAY EXAM CHEST 2 VIEWS (04/15/18) X-RAY EXAM OF HAND (12/22/14) X-RAY EXAM UNILAT RIBS/CHEST (03/27/18) (1) S/P total hip arthroplasty SNOMED Code(s): 490876995694, 683772981693 Code(s): Z96.649 - PRESENCE OF UNSPECIFIED ARTIFICIAL HIP JOINT Priority: High Current Visit: Yes Qualifiers: Laterality: left Qualified Code(s): Z96.642 - Presence of left artificial hip joint (2) Osteoarthritis SNOMED Code(s): 600867624 Code(s): M19.90 - UNSPECIFIED OSTEOARTHRITIS, UNSPECIFIED SITE Priority: High Current Visit: Yes Qualifiers: Osteoarthritis location: hip Osteoarthritis type: primary Laterality: left Qualified Code(s): M16.12 - Unilateral primary osteoarthritis, left hip (3) History of myocardial infarction SNOMED Code(s): 331064867 Code(s): I25.2 - OLD MYOCARDIAL INFARCTION Priority: Medium Current Visit : No (4) CAD (coronary artery disease) SNOMED Code(s): 70204143 Code(s): I25.10 - ATHSCL HEART DISEASE OF [place] CORONARY ARTERY W/O ANG PCTRS Priority: Medium Current Visit: No Qualifiers: Coronary Disease-Associated Artery/Lesion type: unspecified vessel or lesion type Associated angina: angina presence unspecified (5) HLD (hyperlipidemia) SNOMED Code(s): 71722518 Code(s): E78.5 - HYPERLIPIDEMIA, UNSPECIFIED Priority: Medium Current Visit: No Qualifiers: Hyperlipidemia type: unspecified Qualified Code(s): E78.5 - Hyperlipidemia , unspecified (6) HTN (hypertension) SNOMED Code(s): 39283629 Code(s): I10 - ESSENTIAL (PRIMARY) HYPERTENSION Priority: Medium Current Visit: No Qualifiers: Hypertension type: unspecified Qualified Code(s): I10 - Essential (primary ) hypertension (7) History of pulmonary embolism SNOMED Code(s): 156783680 Code(s): Z86.711 - PERSONAL HISTORY OF PULMONARY EMBOLISM Priority: Medium Current Visit: No (8) Thrombocytopenia SNOMED Code(s): 271138595 Code(s): D69.6 - THROMBOCYTOPENIA, UNSPECIFIED Priority: Medium Current Visit: No (9) Type II diabetes mellitus SNOMED Code(s): 11144417 Code(s): E11.9 - TYPE 2 DIABETES MELLITUS WITHOUT COMPLICATIONS Priority: High Current Visit: Yes Qualifiers: Diabetes mellitus salvage determiner insulin use: with intermediate use Diabetes mellitus complication status: with unspecified complications Qualified Code(s) : E11.8 - Type 2 diabetes mellitus with unspecified complications; Z79.4 - FDC (current) use of insulin (10) Anxiety SNOMED Code(s): 63359273 Code(s): F41.9 - ANXIETY DISORDER, UNSPECIFIED Priority: Medium Current Visit: No (11) History of prostate cancer SNOMED Code(s): 857289893 Code(s): Z85.46 - PERSONAL HISTORY OF MALIGNANT NEOPLASM OF PROSTATE Priority: Medium Current Visit: No (12) Urinary retention SNOMED Code(s): 333345829 Code(s): R33.9 - RETENTION OF URINE, UNSPECIFIED Priority: High Current Visit: Yes Problem List Initiated/Reviewed/Updated: Yes Plan: I/P: Acute: S/P left total knee arthroplasty - post-operative day 1 -DVT prophylaxis and pain management per primary care team -Warfarin with Lovenox bridging -PT/OT -IS/RT -Monitor oxygen saturation -Titrate oxygen as needed -Vital signs stable -Monitor labs -Pre-operative Hgb was 15.3; now 13.9-->12.2 -Pre-operative platelets was 10; now 146-->134 -Pre-operative eGFR was >60; now >60 -A1C of 6.65 Osteoarthritis of left knee -Pain management per primary care team Urinary retention -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 GI prophylaxis Home medications as indicated Other orders as listed above Routine AM labs He is a full code. His PCP is Terri Rosario PA-C in [place]. Thank you for allowing us to participate in the care of this patient!!
--- NOTE | 2018-04-30 08:38 | PCM.SURGPN ---
- General Info Date of Service: 04/30/18 POD#: 1 Functional Status: Reports: Pain Controlled, Tolerating Diet, Urinating, Incentive Spirometry - Review of Systems Musculoskeletal: Reports: Other (The pt states his pain is controlled.) - Patient Data Vitals - Most Recent: Last Vital Signs Temp 98.1 F 04/30/18 03:24 Pulse 55 L 04/30/18 03:24 Resp 18 04/30/18 07:00 BP 100/58 L 04/30/18 03:24 Pulse Ox 97 04/30/18 07:00 Weight - Most Recent: 192 lb 12.8 oz I&O - Last 24 Hours: Intake & Output 04/29/18 04/30/18 04/30/18 22:59 06:59 14:59 Intake Total 0 850 Output Total 300 Balance 0 550 Lab Results Last 24 Hrs: Laboratory Results - last 24 hr 04/29/18 04/29/18 04/29/18 Range/Units 08:50 08:50 10:24 WBC 7.09 (4.23-9.07) K/mm3 RBC 4.23 L (4.63-6.08) M/mm3 Hgb 13.9 (13.7-17.5) gm/L Hct 41.9 (40.1-51.0) % MCV 99.1 H (79.0-92.2) fl MCH 32.9 H (25.7-32.2) pg MCHC 33.2 (32.2-35.5) g/dl RDW Std Deviation 50.6 H (35.1-43.9) fL Plt Count 146 L (163-337) K/mm3 MPV 10.8 (9.4-12.3) fl Neut % (Auto) 67.9 (34.0-67.9) % Lymph % (Auto) 21.0 L (21.8-53.1) % Hodgeman % (Auto) 9.4 (5.3-12.2) % Eos % (Auto) 1.0 (0.8-7.0) Baso % (Auto) 0.4 (0.1-1.2) % Neut # (Auto) 4.81 (1.78-5.38) K/mm3 Lymph # (Auto) 1.49 (1.32-3.57) K/mm3 Hodgeman # (Auto) 0.67 (0.30-0.82) K/mm3 Eos # (Auto) 0.07 (0.04-0.54) K/mm3 Baso # (Auto) 0.03 (0.01-0.08) K/mm3 PT 10.7 (9.5-12.1) SECONDS INR 0.98 APTT 26 (24-31) SECONDS Sodium (136-145) mEq/L Potassium (3.5-5.1) mEq/L Chloride (98-107) mEq/L Carbon Dioxide (21-32) mEq/L Anion Gap (5-15) BUN (7-18) mg/dL Creatinine (0.7-1.3) mg/dL Est Cr Clr Drug Dosing mL/min Estimated GFR (MDRD) (>60) mL/min BUN/Creatinine Ratio (14-18) Glucose (83-115) mg/dL POC Glucose (83-110) mg/dL Calcium (8.5-10.1) mg/dL Total Bilirubin (0.2-1.0) mg/dL AST (15-37) U/L ALT (16-63) U/L Alkaline Phosphatase (46-116) U/L Total Protein (6.4-8.2) g/dl Albumin (3.4-5.0) g/dl Globulin gm/dL Albumin/Globulin Ratio (1-2) Blood Type A POSITIVE Gel Antibody Screen Negative 04/29/18 04/30/18 04/30/18 Range/Units 13:35 06:04 06:04 WBC 8.36 (4.23-9.07) K/mm3 RBC 3.71 L (4.63-6.08) M/mm3 Hgb 12.2 L (13.7-17.5) gm/L Hct 37.6 L (40.1-51.0) % MCV 101.3 H (79.0-92.2) fl MCH 32.9 H (25.7-32.2) pg MCHC 32.4 (32.2-35.5) g/dl RDW Std Deviation 51.9 H (35.1-43.9) fL Plt Count 134 L (163-337) K/mm3 MPV 11.1 (9.4-12.3) fl Neut % (Auto) (34.0-67.9) % Lymph % (Auto) (21.8-53.1) % Hodgeman % (Auto) (5.3-12.2) % Eos % (Auto) (0.8-7.0) Baso % (Auto) (0.1-1.2) % Neut # (Auto) (1.78-5.38) K/mm3 Lymph # (Auto) (1.32-3.57) K/mm3 Hodgeman # (Auto) (0.30-0.82) K/mm3 Eos # (Auto) (0.04-0.54) K/mm3 Baso # (Auto) (0.01-0.08) K/mm3 PT (9.5-12.1) SECONDS INR APTT (24-31) SECONDS Sodium 138 (136-145) mEq/L Potassium 4.1 (3.5-5.1) mEq/L Chloride 103 (98-107) mEq/L Carbon Dioxide 28 (21-32) mEq/L Anion Gap 11.1 (5-15) BUN 20 H (7-18) mg/dL Creatinine 0.6 L (0.7-1.3) mg/dL Est Cr Clr Drug Dosing 81.23 mL/min Estimated GFR (MDRD) > 60 (>60) mL/min BUN/Creatinine Ratio 33.3 H (14-18) Glucose 129 H (83-115) mg/dL POC Glucose 118 H (83-110) mg/dL Calcium 8.6 (8.5-10.1) mg/dL Total Bilirubin 1.0 (0.2-1.0) mg/dL AST 23 (15-37) U/L ALT 40 (16-63) U/L Alkaline Phosphatase 63 (46-116) U/L Total Protein 6.0 L (6.4-8.2) g/dl Albumin 3.0 L (3.4-5.0) g/dl Globulin 3.0 gm/dL Albumin/Globulin Ratio 1.0 (1-2) Blood Type Gel Antibody Screen 04/30/18 Range/Units 06:04 WBC (4.23-9.07) K/mm3 RBC (4.63-6.08) M/mm3 Hgb (13.7-17.5) gm/L Hct (40.1-51.0) % MCV (79.0-92.2) fl MCH (25.7-32.2) pg MCHC (32.2-35.5) g/dl RDW Std Deviation (35.1-43.9) fL Plt Count (163-337) K/mm3 MPV (9.4-12.3) fl Neut % (Auto) (34.0-67.9) % Lymph % (Auto) (21.8-53.1) % [place]eman % (Auto) (5.3-12.2) % Eos % (Auto) (0.8-7.0) Baso % (Auto) (0.1-1.2) % Neut # (Auto) (1.78-5.38) K/mm3 Lymph # (Auto) (1.32-3.57) K/mm3 Hodgeman # (Auto) (0.30-0.82) K/mm3 Eos # (Auto) (0.04-0.54) K/mm3 Baso # (Auto) (0.01-0.08) K/mm3 PT 11.0 (9.5-12.1) SECONDS INR 1.01 APTT (24-31) SECONDS Sodium (136-145) mEq/L Potassium (3.5-5.1) mEq/L Chloride (98-107) mEq/L Carbon Dioxide (21-32) mEq/L Anion Gap (5-15) BUN (7-18) mg/dL Creatinine (0.7-1.3) mg/dL Est Cr Clr Drug Dosing mL/min Estimated GFR (MDRD) (>60) mL/min BUN/Creatinine Ratio (14-18) Glucose (83-115) mg/dL POC Glucose (83-110) mg/dL Calcium (8.5-10.1) mg/dL Total Bilirubin (0.2-1.0) mg/dL AST (15-37) U/L ALT (16-63) U/L Alkaline Phosphatase (46-116) U/L Total Protein (6.4-8.2) g/dl Albumin (3.4-5.0) g/dl Globulin gm/dL Albumin/Globulin Ratio (1-2) Blood Type Gel Antibody Screen Med Orders - Current: Current Medications Hydrocodone Bitart/Acetaminophen ([place] 325-5 Mg) 1 - 2 tab PO Q4H PRN PRN Reason: Pain Last Admin: 04/30/18 02:51 Dose: 2 tab Aspirin (Halfprin) 81 mg PO DAILY [facility] Bisacodyl (Dulcolax) 5 mg PO DAILY PRN PRN Reason: Constipation Docusate Sodium (Colace) 100 mg PO BID [facility] Last Admin: 04/29/18 21:25 Dose: 100 mg Enoxaparin Sodium (Lovenox) 30 mg SUBCUT Q12H [facility] Last Admin: 04/30/18 03:48 Dose: 30 mg Famotidine (Pepcid) 20 mg PO Q12H [facility] Last Admin: 04/29/18 21:25 Dose: 20 mg Finasteride (Proscar) 5 mg PO DAILY [facility] Cefazolin Sodium/Dextrose 2 gm (/ Premix) 50 mls @ 100 mls/hr IV Q8H [facility] Stop: 04/30/18 19:29 Last Admin: 04/30/18 02:59 Dose: 100 mls/hr Isosorbide Mononitrate (Imdur) 30 mg PO DAILY [facility] Ketorolac Tromethamine (Toradol) 15 mg IVPUSH Q6H PRN PRN Reason: Pain Magnesium Hydroxide (Milk Of Magnesia) 30 ml PO BID PRN PRN Reason: Constipation Metoprolol Succinate (Toprol Xl) 12.5 mg PO DAILY [facility] Morphine Sulfate (Morphine) 2 mg IVPUSH Q2H PRN PRN Reason: Breakthrough Pain Multivitamins (Thera) 1 each PO DAILY [facility] Nitroglycerin (Nitrostat) 0.4 mg SL ASDIRECTED PRN PRN Reason: Chest Pain Ondansetron HCl (Zofran) 4 mg IVPUSH Q6H PRN PRN Reason: Nausea/Vomiting Hydrocortisone 2.5% (1 Applic) 0 each RECTAL DAILY PRN PRN Reason: Hemorrhoids Senna (Senna) 8.6 mg PO BID PRN PRN Reason: Constipation Simvastatin (Zocor) 40 mg PO BEDTIME [facility] Last Admin: 04/29/18 21:25 Dose: 40 mg Sodium Chloride (Saline Flush) 10 ml FLUSH ASDIRECTED PRN PRN Reason: Keep Vein Open Tamsulosin HCl (Flomax) 0.4 mg PO DAILY [facility] Tramadol HCl (Ultram) 50 mg PO BID [facility] Last Admin: 04/29/18 21:25 Dose: 50 mg Warfarin Sodium (Pharmacy To Dose - Warfarin) 1 dose .XX ASDIRECTED [facility] Discontinued Medications Acetaminophen (Tylenol) 975 mg PO NOW ONE Stop: 04/29/18 08:31 Last Admin: 04/29/18 10:30 Dose: 975 mg Bupivacaine HCl (Marcaine 0.25%) Confirm Administered Dose 30 ml .ROUTE .STK- MED ONE Stop: 04/29/18 08:50 Last Admin: 04/29/18 12:43 Dose: 30 ml Bupivacaine HCl (Sensorcaine-Mpf 0.75%) Confirm Administered Dose 30 ml .ROUTE .STK-MED ONE Stop: 04/29/18 09:49 Cefazolin Sodium (Ancef) Confirm Administered Dose 2 gm .ROUTE .STK-MED ONE Stop: 04/29/18 08:49 Cefazolin Sodium (Ancef) Confirm Administered Dose 2 gm .ROUTE .STK-MED ONE Stop: 04/29/18 11:24 Last Admin: 04/29/18 12:37 Dose: 2 gm Morphine Sulfate 8 mg/Epinephrine HCl 0.3 mg/Cefuroxime Sodium 750 mg/Ketorolac Tromethamine 30 mg/Sodium Chloride 27.9 ml 0 mg .XX ONETIME ONE Stop: 04/29/18 06:59 Last Admin: 04/29/18 12:42 Dose: 788.3 mg Diphenhydramine HCl (Benadryl) 25 mg IVPUSH Q6H PRN PRN Reason: Itching Stop: 04/29/18 23:00 Ephedrine Sulfate (Ephedrine In Ns) Confirm Administered Dose 25 mg .ROUTE .STK- MED ONE Stop: 04/29/18 11:06 Ephedrine Sulfate (Ephedrine In Ns) Confirm Administered Dose 25 mg .ROUTE .STK- MED ONE Stop: 04/29/18 11:26 Fentanyl (Sublimaze) Confirm Administered Dose 100 mcg .ROUTE .STK-MED ONE Stop: 04/29/18 09:44 Lactated Ringer's (Ringers, Lactated) 1,000 mls @ 125 mls/hr IV ASDIRECTED [facility] Last Admin: 04/29/18 14:02 Dose: 125 mls/hr Cefazolin Sodium/Dextrose 2 gm (/ Premix) 50 mls @ 100 mls/hr IV Q8H [facility] Stop: 04/29/18 23:29 Last Admin: 04/30/18 02:53 Dose: Not Given Lactated Ringer's (Ringers, Lactated) Confirm Administered Dose 1,000 mls @ as directed .ROUTE .STK-MED ONE Stop: 04/29/18 11:57 Iodine (Iodine 2% Mild Tincture) Confirm Administered Dose 30 ml .ROUTE .STK- MED ONE Stop: 04/29/18 08:50 Last Admin: 04/29/18 12:35 Dose: 18 ml Ketamine HCl (Ketalar) Confirm Administered Dose 500 mg .ROUTE .STK-MED ONE Stop: 04/29/18 09:49 Lidocaine/Sodium Bicarbonate (Buffered Lidocaine 1% In Ns 8.4%) 0.25 ml IDERM ONETIME PRN PRN Reason: Prior to IV Start Stop: 04/29/18 18:00 Morphine Sulfate (Duramorph Pf) Confirm Administered Dose 10 mg .ROUTE .STK-MED ONE Stop: 04/29/18 09:56 Naloxone HCl (Narcan) 0.1 mg IVPUSH Q5M PRN PRN Reason: Oversedation Oxycodone HCl (Oxycontin) 10 mg PO ONETIME ONE Stop: 04/29/18 08:31 Last Admin: 04/29/18 10:30 Dose: 10 mg Oxycodone/Acetaminophen (Percocet 325-5 Mg) 1 - 2 tab PO Q4H PRN PRN Reason: Pain Phenylephrine HCl (Phenylephrine In Ns 100 Mcg/Ml) Confirm Administered Dose 1 mg .ROUTE .STK-MED ONE Stop: 04/29/18 11:32 Phenylephrine HCl (Phenylephrine In Ns 100 Mcg/Ml) Confirm Administered Dose 1 mg .ROUTE .STK-MED ONE Stop: 04/29/18 12:56 Pregabalin (Lyrica) 50 mg PO DAILY [facility] Stop: 04/29/18 11:00 Last Admin: 04/29/18 10:30 Dose: 50 mg Propofol (Diprivan 20 Ml) Confirm Administered Dose 200 mg .ROUTE .STK-MED ONE Stop: 04/29/18 09:44 Propofol (Diprivan 20 Ml) Confirm Administered Dose 200 mg .ROUTE .STK-MED ONE Stop: 04/29/18 11:37 Propofol (Diprivan 20 Ml) Confirm Administered Dose 200 mg .ROUTE .STK-MED ONE Stop: 04/29/18 12:24 Tranexamic Acid (Cyklokapron) Confirm Administered Dose 1,000 mg .ROUTE .STK- MED ONE Stop: 04/29/18 08:49 Last Admin: 04/29/18 12:44 Dose: 1,000 mg Vancomycin HCl (Vancomycin) Confirm Administered Dose 1 gm .ROUTE .STK-MED ONE Stop: 04/29/18 08:49 Last Admin: 04/29/18 12:45 Dose: 1 gm Warfarin Sodium (Coumadin) 5 mg PO ONETIME ONE Stop: 04/29/18 18:01 Last Admin: 04/29/18 17:21 Dose: 5 mg - Exam Wound/Incisions: Dressing Dry and Intact General: Alert, Cooperative, No Acute Distress Lungs: Normal Respiratory Effort Extremities: Other (Left thigh soft. NVS intact for BLE. Homans negative.) - Problem List Review Problem List Initiated/Reviewed/Updated: Yes - My Orders Last 24 Hours: Active Orders 24 hr Category Date Time Status Ambulate [RC] 09,15,20 Care 04/30/18 05:45 Active Communication Order [RC] 10,22 Care 04/29/18 13:18 Active May Shower [RC] ASDIRECTED Care 04/30/18 05:45 Active RT Incentive Spirometry [RC] Q1HWA Care 04/30/18 05:43 Active Up to Chair [RC] 09,15 Care 04/30/18 05:44 Active Vital Signs [RC] Q1H Care 04/29/18 13:17 Active ADA Diabetic [[place] [employer] Diet] [DIET Diet 04/29/18 Dinner Active ] Acetaminophen/HYDROcodone [[place] 325-5 MG] Med 04/29/18 16:13 Active 1 - 2 tab PO Q4H PRN Aspirin [Halfprin] Med 04/30/18 09:00 Active 81 mg PO DAILY Docusate Sodium [Colace] Med 04/29/18 21:00 Active 100 mg PO BID Enoxaparin [Lovenox] Med 04/29/18 16:00 Active 30 mg SUBCUT Q12H Famotidine [Pepcid] Med 04/29/18 21:00 Active 20 mg PO Q12H Finasteride [Proscar] Med 04/30/18 09:00 Active 5 mg PO DAILY Isosorbide Mononitrate [Imdur] Med 04/30/18 09:00 Active 30 mg PO DAILY Metoprolol Succinate [Toprol XL] Med 04/30/18 09:00 Active 12.5 mg PO DAILY Multivitamins,Therapeutic [Thera] Med 04/30/18 09:00 Active 1 each PO DAILY Nitroglycerin [Nitrostat] Med 04/29/18 14:17 Active 0.4 mg SL ASDIRECTED PRN Patient's Own Medication [Ptom] Med 04/29/18 14:17 Active 0 each RECTAL DAILY PRN Simvastatin [Zocor] Med 04/29/18 21:00 Active 40 mg PO BEDTIME Tamsulosin [Flomax] Med 04/30/18 09:00 Active 0.4 mg PO DAILY ceFAZolin [Ancef] 2 gm Med 04/30/18 03:00 Active Premix Bag 1 bag IV Q8H traMADol [Ultram] Med 04/29/18 21:00 Active 50 mg PO BID Medication Orders Hydrocodone Bitart/Acetaminophen ([place] 325-5 Mg) 1 - 2 tab PO Q4H PRN PRN Reason: Pain Last Admin: 04/30/18 02:51 Dose: 2 tab Aspirin (Halfprin) 81 mg PO DAILY [facility] Bisacodyl (Dulcolax) 5 mg PO DAILY PRN PRN Reason: Constipation Docusate Sodium (Colace) 100 mg PO BID [facility] Last Admin: 04/29/18 21:25 Dose: 100 mg Enoxaparin Sodium (Lovenox) 30 mg SUBCUT Q12H [facility] Last Admin: 04/30/18 03:48 Dose: 30 mg Admin: 04/29/18 17:21 Dose: 30 mg Famotidine (Pepcid) 20 mg PO Q12H [facility] Last Admin: 04/29/18 21:25 Dose: 20 mg Finasteride (Proscar) 5 mg PO DAILY [facility] Cefazolin Sodium/Dextrose 2 gm (/ Premix) 50 mls @ 100 mls/hr IV Q8H [facility] Stop: 04/30/18 19:29 Last Admin: 04/30/18 02:59 Dose: 100 mls/hr Isosorbide Mononitrate (Imdur) 30 mg PO DAILY [facility] Ketorolac Tromethamine (Toradol) 15 mg IVPUSH Q6H PRN PRN Reason: Pain Magnesium Hydroxide (Milk Of Magnesia) 30 ml PO BID PRN PRN Reason: Constipation Metoprolol Succinate (Toprol Xl) 12.5 mg PO DAILY [facility] Morphine Sulfate (Morphine) 2 mg IVPUSH Q2H PRN PRN Reason: Breakthrough Pain Multivitamins (Thera) 1 each PO DAILY [facility] Nitroglycerin (Nitrostat) 0.4 mg SL ASDIRECTED PRN PRN Reason: Chest Pain Ondansetron HCl (Zofran) 4 mg IVPUSH Q6H PRN PRN Reason: Nausea/Vomiting Hydrocortisone 2.5% (1 Applic) 0 each RECTAL DAILY PRN PRN Reason: Hemorrhoids Senna (Senna) 8.6 mg PO BID PRN PRN Reason: Constipation Simvastatin (Zocor) 40 mg PO BEDTIME [facility] Last Admin: 04/29/18 21:25 Dose: 40 mg Sodium Chloride (Saline Flush) 10 ml FLUSH ASDIRECTED PRN PRN Reason: Keep Vein Open Tamsulosin HCl (Flomax) 0.4 mg PO DAILY [facility] Tramadol HCl (Ultram) 50 mg PO BID [facility] Last Admin: 04/29/18 21:25 Dose: 50 mg Warfarin Sodium (Pharmacy To Dose - Warfarin) 1 dose .XX ASDIRECTED [facility] - Assessment Assessment (Free Text/Narrative):: POD#1 - left JENNA - Plan Plan (Free Text/Narrative):: 1. Hgb 12.2. 2. Lovenox until INR therapeutic. Pharmacy to dose Coumadin. 3. Likely d/c to [facility] for continued rehab. The pt's case was discussed with Dr. Boo.
--- NOTE | 2018-04-30 09:12 | PCM48HPAN ---
Post Anesthesia Note - EVALUATION WITHIN 48HRS OF ANESTHETIC Vital Signs in Normal Range: Yes Patient Participated in Evaluation: Yes Respiratory Function Stable: Yes Airway Patent: Yes Cardiovascular Function Stable: Yes Hydration Status Stable: Yes Pain Control Satisfactory: Yes Nausea and Vomiting Control Satisfactory: Yes Mental Status Recovered: Yes
[2018-04-30] MEDS: Metoprolol Succinate 25 MG Tab.ER PO SCH (09:32)
[2018-04-30] MEDS: Finasteride 5 MG Tab PO SCH (09:33)
[2018-04-30] MEDS: Multivitamins,Therapeutic Tab PO SCH (09:33)
[2018-04-30] MEDS: Aspirin 81 MG Tab.EC PO SCH (09:33)
[2018-04-30] MEDS: traMADol 50 MG Tab PO SCH ×2 (09:33→20:01)
[2018-04-30] MEDS: Famotidine 20 MG Tab PO SCH ×2 (09:33→20:01)
[2018-04-30] MEDS: Tamsulosin 0.4 MG Cap.ER PO SCH (09:34)
[2018-04-30] MEDS: Docusate Sodium 100 MG Cap PO SCH ×2 (09:34→20:02)
[2018-04-30] MEDS: Isosorbide Mononitrate 30 MG Tab.ER PO SCH (09:34)
[2018-04-30] MEDS ORDERED: Warfarin 5 MG Tab PO ONE (18:00)
[2018-04-30] MEDS: Simvastatin 40 MG Tab PO SCH (20:02)
[2018-05-01] MEDS: Enoxaparin 30 MG/0.3 ML Syringe SUBCUT SCH ×2 (04:35→16:18)
[2018-05-01] MEDS: Acetaminophen/HYDROcodone 325-5 MG Tab PO PRN ×3 (04:39→18:47)
--- NOTE | 2018-05-01 07:35 | PCM.CONSN ---
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 He is sitting in the chair. He reports his pain is much better today (-01/05). He has been working with therapies which hes states he "hates" but knows he needs them. He has been urinating. He has yet to have a BM and this will be addressed with nursing. Otherwise labs today look good. Potassium has been supplemented. He will likely be discharged tomorrow for a SNF rehab stay - [facility] has accepted. Functional Status: Reports: Pain Controlled, Tolerating Diet, Ambulating, Urinating, Incentive Spirometry. Denies: New Symptoms - Review of Systems General: Reports: No Symptoms HEENT: Reports: No Symptoms Pulmonary: Reports: No Symptoms Cardiovascular: Reports: No Symptoms Gastrointestinal: Reports: No Symptoms Genitourinary: Reports: No Symptoms Musculoskeletal: Reports: Joint Pain Skin: Reports: No Symptoms Neurological: Reports: No Symptoms Psychiatric: Reports: No Symptoms - Patient Data Vitals - Most Recent: Last Vital Signs Temp 99.0 F 05/01/18 04:35 Pulse 75 05/01/18 04:35 Resp 16 05/01/18 04:35 BP 111/72 05/01/18 04:35 Pulse Ox 90 L 05/01/18 04:35 Weight - Most Recent: 191 lb 9 oz I&O - Last 24 Hours: Intake & Output 04/30/18 05/01/18 05/01/18 22:59 06:59 14:59 Intake Total 700 800 Output Total 800 400 Balance -100 400 Lab Results Last 24 Hours: Laboratory Results - last 24 hr 04/30/18 04/30/18 Range/Units 06:04 06:04 PT 11.0 (9.5-12.1) SECONDS INR 1.01 Sodium 138 (136-145) mEq/L Potassium 4.1 (3.5-5.1) mEq/L Chloride 103 (98-107) mEq/L Carbon Dioxide 28 (21-32) mEq/L Anion Gap 11.1 (5-15) BUN 20 H (7-18) mg/dL Creatinine 0.6 L (0.7-1.3) mg/dL Est Cr Clr Drug Dosing 81.23 mL/min Estimated GFR (MDRD) > 60 (>60) mL/min BUN/Creatinine Ratio 33.3 H (14-18) Glucose 129 H (83-115) mg/dL Calcium 8.6 (8.5-10.1) mg/dL Total Bilirubin 1.0 (0.2-1.0) mg/dL AST 23 (15-37) U/L ALT 40 (16-63) U/L Alkaline Phosphatase 63 (46-116) U/L Total Protein 6.0 L (6.4-8.2) g/dl Albumin 3.0 L (3.4-5.0) g/dl Globulin 3.0 gm/dL Albumin/Globulin Ratio 1.0 (1-2) Med Orders - Current: Current Medications Hydrocodone Bitart/Acetaminophen ([place] 325-5 Mg) 1 - 2 tab PO Q4H PRN PRN Reason: Pain Last Admin: 05/01/18 04:39 Dose: 2 tab Aspirin (Halfprin) 81 mg PO DAILY [facility] Last Admin: 04/30/18 09:33 Dose: 81 mg Bisacodyl (Dulcolax) 5 mg PO DAILY PRN PRN Reason: Constipation Last Admin: 04/30/18 20:02 Dose: 5 mg Docusate Sodium (Colace) 100 mg PO BID [facility] Last Admin: 04/30/18 20:02 Dose: 100 mg Enoxaparin Sodium (Lovenox) 30 mg SUBCUT Q12H [facility] Last Admin: 05/01/18 04:35 Dose: 30 mg Famotidine (Pepcid) 20 mg PO Q12H [facility] Last Admin: 04/30/18 20:01 Dose: 20 mg Finasteride (Proscar) 5 mg PO DAILY [facility] Last Admin: 04/30/18 09:33 Dose: 5 mg Isosorbide Mononitrate (Imdur) 30 mg PO DAILY [facility] Last Admin: 04/30/18 09:34 Dose: 30 mg Ketorolac Tromethamine (Toradol) 15 mg IVPUSH Q6H PRN PRN Reason: Pain Magnesium Hydroxide (Milk Of Magnesia) 30 ml PO BID PRN PRN Reason: Constipation Metoprolol Succinate (Toprol Xl) 12.5 mg PO DAILY [facility] Last Admin: 04/30/18 09:32 Dose: 12.5 mg Morphine Sulfate (Morphine) 2 mg IVPUSH Q2H PRN PRN Reason: Breakthrough Pain Multivitamins (Thera) 1 each PO DAILY [facility] Last Admin: 04/30/18 09:33 Dose: 1 each Nitroglycerin (Nitrostat) 0.4 mg SL ASDIRECTED PRN PRN Reason: Chest Pain Ondansetron HCl (Zofran) 4 mg IVPUSH Q6H PRN PRN Reason: Nausea/Vomiting Hydrocortisone 2.5% (1 Applic) 0 each RECTAL DAILY PRN PRN Reason: Hemorrhoids Senna (Senna) 8.6 mg PO BID PRN PRN Reason: Constipation Simvastatin (Zocor) 40 mg PO BEDTIME [facility] Last Admin: 04/30/18 20:02 Dose: 40 mg Sodium Chloride (Saline Flush) 10 ml FLUSH ASDIRECTED PRN PRN Reason: Keep Vein Open Tamsulosin HCl (Flomax) 0.4 mg PO DAILY [facility] Last Admin: 04/30/18 09:34 Dose: 0.4 mg Tramadol HCl (Ultram) 50 mg PO BID [facility] Last Admin: 04/30/18 20:01 Dose: 50 mg Warfarin Sodium (Pharmacy To Dose - Warfarin) 1 dose .XX ASDIRECTED [facility] Discontinued Medications Acetaminophen (Tylenol) 975 mg PO NOW ONE Stop: 04/29/18 08:31 Last Admin: 04/29/18 10:30 Dose: 975 mg Bupivacaine HCl (Marcaine 0.25%) Confirm Administered Dose 30 ml .ROUTE .STK- MED ONE Stop: 04/29/18 08:50 Last Admin: 04/29/18 12:43 Dose: 30 ml Bupivacaine HCl (Sensorcaine-Mpf 0.75%) Confirm Administered Dose 30 ml .ROUTE .STK-MED ONE Stop: 04/29/18 09:49 Cefazolin Sodium (Ancef) Confirm Administered Dose 2 gm .ROUTE .STK-MED ONE Stop: 04/29/18 08:49 Cefazolin Sodium (Ancef) Confirm Administered Dose 2 gm .ROUTE .STK-MED ONE Stop: 04/29/18 11:24 Last Admin: 04/29/18 12:37 Dose: 2 gm Morphine Sulfate 8 mg/Epinephrine HCl 0.3 mg/Cefuroxime Sodium 750 mg/Ketorolac Tromethamine 30 mg/Sodium Chloride 27.9 ml 0 mg .XX ONETIME ONE Stop: 04/29/18 06:59 Last Admin: 04/29/18 12:42 Dose: 788.3 mg Diphenhydramine HCl (Benadryl) 25 mg IVPUSH Q6H PRN PRN Reason: Itching Stop: 04/29/18 23:00 Ephedrine Sulfate (Ephedrine In Ns) Confirm Administered Dose 25 mg .ROUTE .STK- MED ONE Stop: 04/29/18 11:06 Ephedrine Sulfate (Ephedrine In Ns) Confirm Administered Dose 25 mg .ROUTE .STK- MED ONE Stop: 04/29/18 11:26 Fentanyl (Sublimaze) Confirm Administered Dose 100 mcg .ROUTE .STK-MED ONE Stop: 04/29/18 09:44 Lactated Ringer's (Ringers, Lactated) 1,000 mls @ 125 mls/hr IV ASDIRECTED [facility] Last Admin: 04/29/18 14:02 Dose: 125 mls/hr Cefazolin Sodium/Dextrose 2 gm (/ Premix) 50 mls @ 100 mls/hr IV Q8H [facility] Stop: 04/29/18 23:29 Last Admin: 04/30/18 02:53 Dose: Not Given Lactated Ringer's (Ringers, Lactated) Confirm Administered Dose 1,000 mls @ as directed .ROUTE .STK-MED ONE Stop: 04/29/18 11:57 Cefazolin Sodium/Dextrose 2 gm (/ Premix) 50 mls @ 100 mls/hr IV Q8H [facility] Stop: 04/30/18 19:29 Last Admin: 04/30/18 18:18 Dose: 100 mls/hr Iodine (Iodine 2% Mild Tincture) Confirm Administered Dose 30 ml .ROUTE .STK- MED ONE Stop: 04/29/18 08:50 Last Admin: 04/29/18 12:35 Dose: 18 ml Ketamine HCl (Ketalar) Confirm Administered Dose 500 mg .ROUTE .STK-MED ONE Stop: 04/29/18 09:49 Lidocaine/Sodium Bicarbonate (Buffered Lidocaine 1% In Ns 8.4%) 0.25 ml IDERM ONETIME PRN PRN Reason: Prior to IV Start Stop: 04/29/18 18:00 Morphine Sulfate (Duramorph Pf) Confirm Administered Dose 10 mg .ROUTE .STK-MED ONE Stop: 04/29/18 09:56 Naloxone HCl (Narcan) 0.1 mg IVPUSH Q5M PRN PRN Reason: Oversedation Oxycodone HCl (Oxycontin) 10 mg PO ONETIME ONE Stop: 04/29/18 08:31 Last Admin: 04/29/18 10:30 Dose: 10 mg Oxycodone/Acetaminophen (Percocet 325-5 Mg) 1 - 2 tab PO Q4H PRN PRN Reason: Pain Phenylephrine HCl (Phenylephrine In Ns 100 Mcg/Ml) Confirm Administered Dose 1 mg .ROUTE .STK-MED ONE Stop: 04/29/18 11:32 Phenylephrine HCl (Phenylephrine In Ns 100 Mcg/Ml) Confirm Administered Dose 1 mg .ROUTE .STK-MED ONE Stop: 04/29/18 12:56 Pregabalin (Lyrica) 50 mg PO DAILY [facility] Stop: 04/29/18 11:00 Last Admin: 04/29/18 10:30 Dose: 50 mg Propofol (Diprivan 20 Ml) Confirm Administered Dose 200 mg .ROUTE .STK-MED ONE Stop: 04/29/18 09:44 Propofol (Diprivan 20 Ml) Confirm Administered Dose 200 mg .ROUTE .STK-MED ONE Stop: 04/29/18 11:37 Propofol (Diprivan 20 Ml) Confirm Administered Dose 200 mg .ROUTE .STK-MED ONE Stop: 04/29/18 12:24 Tranexamic Acid (Cyklokapron) Confirm Administered Dose 1,000 mg .ROUTE .STK- MED ONE Stop: 04/29/18 08:49 Last Admin: 04/29/18 12:44 Dose: 1,000 mg Vancomycin HCl (Vancomycin) Confirm Administered Dose 1 gm .ROUTE .STK-MED ONE Stop: 04/29/18 08:49 Last Admin: 04/29/18 12:45 Dose: 1 gm Warfarin Sodium (Coumadin) 5 mg PO ONETIME ONE Stop: 04/29/18 18:01 Last Admin: 04/29/18 17:21 Dose: 5 mg Warfarin Sodium (Coumadin) 5 mg PO ONETIME ONE Stop: 04/30/18 18:01 Last Admin: 04/30/18 18:18 Dose: 5 mg - Exam Quality Assessment: DVT Prophylaxis General: Alert, Oriented, Cooperative, No Acute Distress HEENT: Pupils Equal, Pupils Reactive, EOMI, Mucous Membr. Moist/[place] Neck: Supple, Trachea Midline, No JVD Lungs: Clear to Auscultation, Normal Respiratory Effort Cardiovascular: Regular Rate, Regular Rhythm GI/Abdominal Exam: Normal Bowel Sounds, Soft, Non-Tender, No Distention (Male) Exam: Deferred Back Exam: Normal Inspection, Full Range of Motion Extremities: No Pedal Edema, Normal Capillary Refill, Leg Pain, Limited Range of Motion, Other (Bandage in place on left leg. Cooling pack in place ) Peripheral Pulses: 2+: Radial (L), Radial (R), Posterior Tibial (L), Posterior Tibial (R), Dorsalis Pedis (L), Dorsalis Pedis (R) Skin: Warm, Dry, Intact Wound/Incisions: Dressing Dry and Intact, No Drainage Neurological: No New Focal Deficit Psy/Mental Status: Alert, Normal Affect, Normal Mood Consult PN Assessment/Plan POD#: 2 Procedures: Procedures ANTITHROMBIN III ACTIVITY (12/05/16) ASSAY OF CK (CPK) (05/05/15) ASSAY OF HOMOCYSTINE (12/05/16) ASSAY OF LACTIC ACID (05/02/16) ASSAY OF LIPASE (05/02/16) ASSAY OF MAGNESIUM (05/02/16) ASSAY OF TROPONIN QUANT (09/20/16) ASSAY THYROID STIM HORMONE (10/03/16) BETA-2 GLYCOPROTEIN ANTIBODY (12/05/16) BILIRUBIN DIRECT (06/14/16) BILIRUBIN TOTAL (05/02/16) C DIFF AMPLIFIED PROBE (05/10/16) C-REACTIVE PROTEIN (05/02/16) CARDIOLIPIN ANTIBODY EA IG (12/05/16) CHEST X-RAY 1 VIEW FRONTAL (09/20/16) CHEST X-RAY 2VW FRONTAL&LATL (05/02/16) CLOT INHIBIT PROT C ACTIVITY (12/05/16) CLOT INHIBIT PROT S FREE (12/05/16) COMPLETE CBC AUTOMATED (08/22/17) COMPLETE CBC W/AUTO DIFF WBC (09/21/17) COMPREHEN METABOLIC PANEL (04/15/18) CT ABD & PELV W/CONTRAST (05/02/16) CULTURE AEROBIC IDENTIFY (04/07/15) CULTURE OTHR SPECIMN AEROBIC (04/07/15) DRAIN/INJ JOINT/BURSA W/O US (03/12/18) DXA BONE DENSITY AXIAL (04/24/18) ECHO EXAM OF ABDOMEN (05/02/16) ELECTROCARDIOGRAM TRACING (09/20/16) EMERGENCY DEPT VISIT (09/20/16) F2 GENE (12/05/16) F5 GENE (12/05/16) FIBRIN DEGRADATION QUANT (09/20/16) GLYCOSYLATED HEMOGLOBIN TEST (08/08/17) HEMOGLOBIN (05/23/16) HEPATOBIL SYST IMAGE W/DRUG (05/02/16) HYDRATE IV INFUSION ADD-ON (05/02/16) HYDRATION IV INFUSION INIT (09/20/16) LIPID PANEL (04/09/17) METABOLIC PANEL TOTAL CA (08/22/17) MICROBE SUSCEPTIBLE ALFONSO (04/07/15) MR-STAPH DNA AMP PROBE (04/15/18) OT EVALUATION (05/02/16) PROTHROMBIN TIME (04/24/18) PT EVALUATION (05/02/16) RBC SED RATE AUTOMATED (05/02/16) ROUTINE VENIPUNCTURE (04/24/18) CHAPO VIPER VENOM DILUTED (12/05/16) THER/PROPH/DIAG INJ IV PUSH (05/02/16) THER/PROPH/DIAG INJ SC/IM (05/02/16) THROMBOPLASTIN TIME PARTIAL (12/05/16) TTE W/DOPPLER COMPLETE (04/24/18) TX/PRO/DX INJ NEW DRUG ADDON (05/02/16) UR ALBUMIN QUANTITATIVE (04/09/17) URINALYSIS AUTO W/O SCOPE (06/16/15) URINALYSIS AUTO W/SCOPE (09/20/16) URINE CULTURE/COLONY COUNT (04/15/18) VANOMYCIN DNA AMP PROBE (05/10/16) X-RAY EXAM CHEST 2 VIEWS (04/15/18) X-RAY EXAM OF HAND (12/22/14) X-RAY EXAM UNILAT RIBS/CHEST (03/27/18) (1) S/P total hip arthroplasty SNOMED Code(s): 369304830097, 509608258273 Code(s): Z96.649 - PRESENCE OF UNSPECIFIED ARTIFICIAL HIP JOINT Priority: High Current Visit: Yes Qualifiers: Laterality: left Qualified Code(s): Z96.642 - Presence of left artificial hip joint (2) Osteoarthritis SNOMED Code(s): 366726671 Code(s): M19.90 - UNSPECIFIED OSTEOARTHRITIS, UNSPECIFIED SITE Priority: High Current Visit: Yes Qualifiers: Osteoarthritis location: hip Osteoarthritis type: primary Laterality: left Qualified Code(s): M16.12 - Unilateral primary osteoarthritis, left hip (3) History of myocardial infarction SNOMED Code(s): 381483576 Code(s): I25.2 - OLD MYOCARDIAL INFARCTION Priority: Medium Current Visit : No (4) CAD (coronary artery disease) SNOMED Code(s): 57230236 Code(s): I25.10 - ATHSCL HEART DISEASE OF [place] CORONARY ARTERY W/O ANG PCTRS Priority: Medium Current Visit: No Qualifiers: Coronary Disease-Associated Artery/Lesion type: unspecified vessel or lesion type Associated angina: angina presence unspecified (5) HLD (hyperlipidemia) SNOMED Code(s): 19850637 Code(s): E78.5 - HYPERLIPIDEMIA, UNSPECIFIED Priority: Medium Current Visit: No Qualifiers: Hyperlipidemia type: unspecified Qualified Code(s): E78.5 - Hyperlipidemia , unspecified (6) HTN (hypertension) SNOMED Code(s): 58695129 Code(s): I10 - ESSENTIAL (PRIMARY) HYPERTENSION Priority: Medium Current Visit: No Qualifiers: Hypertension type: unspecified Qualified Code(s): I10 - Essential (primary ) hypertension (7) History of pulmonary embolism SNOMED Code(s): 478653982 Code(s): Z86.711 - PERSONAL HISTORY OF PULMONARY EMBOLISM Priority: Medium Current Visit: No (8) Thrombocytopenia SNOMED Code(s): 608318495 Code(s): D69.6 - THROMBOCYTOPENIA, UNSPECIFIED Priority: Medium Current Visit: No (9) Type II diabetes mellitus SNOMED Code(s): 32536295 Code(s): E11.9 - TYPE 2 DIABETES MELLITUS WITHOUT COMPLICATIONS Priority: High Current Visit: Yes Qualifiers: Diabetes mellitus skilled nursing insulin use: with oil heaterman use Diabetes mellitus complication status: with unspecified complications Qualified Code(s) : E11.8 - Type 2 diabetes mellitus with unspecified complications; Z79.4 - joint terminal attack controller (current) use of insulin (10) Anxiety SNOMED Code(s): 40785348 Code(s): F41.9 - ANXIETY DISORDER, UNSPECIFIED Priority: Medium Current Visit: No (11) History of prostate cancer SNOMED Code(s): 980966527 Code(s): Z85.46 - PERSONAL HISTORY OF MALIGNANT NEOPLASM OF PROSTATE Priority: Medium Current Visit: No (12) Urinary retention SNOMED Code(s): 142768175 Code(s): R33.9 - RETENTION OF URINE, UNSPECIFIED Priority: High Current Visit: Yes (13) Hypokalemia SNOMED Code(s): 84562146 Code(s): E87.6 - HYPOKALEMIA Priority: High Current Visit: Yes Problem List Initiated/Reviewed/Updated: Yes My Orders Last 24 Hours: My Active Orders 04/30/18 10:58 Bladder Scan [RC] ,, Plan: I/P: Acute: S/P left total knee arthroplasty - post-operative day 2 -DVT prophylaxis and pain management per primary care team -Warfarin with Lovenox bridging -PT/OT -IS/RT -Monitor oxygen saturation -Titrate oxygen as needed -Vital signs stable -Monitor labs -Pre-operative Hgb was 15.3; now 13.9-->12.2-->13.1 -Pre-operative platelets was 10; now 146-->134-->152 -Pre-operative eGFR was >60; now >60 -A1C of 6.65 Osteoarthritis of left knee -Pain management per primary care team Urinary retention - improved -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 -Chronic incontinence -PT/OT reports patient voided significant amount while working with therapies -Shortly after nursing bladder scanned and found to be around 500mL residual -Straight catheter ordered -Continue protocol for urinary retention Hypokalemia -Potassium 3.4 today -Supplement and monitor Chronic: [place] CAD HLD HTN [place] PE OA hematuria anxiety Type II DM thrombocytopenia prostate cancer mild aortic stenosis 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 His PCP is Terri Rosario PA-C in [place]. Thank you for allowing us to participate in the care of this patient!!
[2018-05-01] MEDS: Docusate Sodium 100 MG Cap PO SCH ×2 (09:14→21:37)
[2018-05-01] MEDS: Multivitamins,Therapeutic Tab PO SCH (09:14)
[2018-05-01] MEDS: Isosorbide Mononitrate 30 MG Tab.ER PO SCH (09:14)
[2018-05-01] MEDS: Famotidine 20 MG Tab PO SCH ×2 (09:14→21:37)
[2018-05-01] MEDS: Metoprolol Succinate 25 MG Tab.ER PO SCH (09:16)
[2018-05-01] MEDS: Tamsulosin 0.4 MG Cap.ER PO SCH (09:16)
[2018-05-01] MEDS: Aspirin 81 MG Tab.EC PO SCH (09:17)
[2018-05-01] MEDS: Finasteride 5 MG Tab PO SCH (09:17)
[2018-05-01] MEDS: traMADol 50 MG Tab PO SCH ×2 (09:17→21:38)
[2018-05-01] MEDS: Timolol Maleate 0.5% Ophth Soln 5 ML Bottle EYEBOTH SCH ×2 (09:17→09:19)
--- NOTE | 2018-05-01 11:29 | PCM.SURGPN ---
- General Info Date of Service: 05/01/18 POD#: 2 Functional Status: Reports: Pain Controlled, Tolerating Diet, Ambulating, Urinating, Incentive Spirometry, Other (The pt states he is doing well - "just bored".) - Patient Data Vitals - Most Recent: Last Vital Signs Temp 99.0 F 05/01/18 04:35 Pulse 78 05/01/18 09:16 Resp 16 05/01/18 04:35 BP 104/62 05/01/18 09:16 Pulse Ox 90 L 05/01/18 04:35 Weight - Most Recent: 191 lb 9 oz I&O - Last 24 Hours: Intake & Output 04/30/18 05/01/18 05/01/18 22:59 06:59 14:59 Intake Total 940 800 0 Output Total 800 400 Balance 140 400 0 Lab Results Last 24 Hrs: Laboratory Results - last 24 hr 05/01/18 05/01/18 05/01/18 Range/Units 08:36 09:05 09:05 WBC 8.75 (4.23-9.07) K/mm3 RBC 3.97 L (4.63-6.08) M/mm3 Hgb 13.1 L (13.7-17.5) gm/L Hct 39.5 L (40.1-51.0) % MCV 99.5 H (79.0-92.2) fl MCH 33.0 H (25.7-32.2) pg MCHC 33.2 (32.2-35.5) g/dl RDW Std Deviation 51.0 H (35.1-43.9) fL Plt Count 152 L (163-337) K/mm3 MPV 10.8 (9.4-12.3) fl Neut % (Auto) 63.2 (34.0-67.9) % Lymph % (Auto) 23.1 (21.8-53.1) % [place] % (Auto) 11.7 (5.3-12.2) % Eos % (Auto) 1.3 (0.8-7.0) Baso % (Auto) 0.2 (0.1-1.2) % Neut # (Auto) 5.54 H (1.78-5.38) K/mm3 Lymph # (Auto) 2.02 (1.32-3.57) K/mm3 [place] # (Auto) 1.02 H (0.30-0.82) K/mm3 Eos # (Auto) 0.11 (0.04-0.54) K/mm3 Baso # (Auto) 0.02 (0.01-0.08) K/mm3 PT 12.2 H (9.5-12.1) SECONDS INR 1.12 Sodium 138 (136-145) mEq/L Potassium 3.4 L (3.5-5.1) mEq/L Chloride 102 (98-107) mEq/L Carbon Dioxide 28 (21-32) mEq/L Anion Gap 11.4 (5-15) BUN 13 (7-18) mg/dL Creatinine 0.8 (0.7-1.3) mg/dL Est Cr Clr Drug Dosing 60.92 mL/min Estimated GFR (MDRD) > 60 (>60) mL/min BUN/Creatinine Ratio 16.3 (14-18) Glucose 126 H (83-115) mg/dL Calcium 9.1 (8.5-10.1) mg/dL Magnesium 1.9 (1.8-2.4) mg/dl Med Orders - Current: Current Medications Hydrocodone Bitart/Acetaminophen (Balm 325-5 Mg) 1 - 2 tab PO Q4H PRN PRN Reason: Pain Last Admin: 05/01/18 10:59 Dose: 2 tab Aspirin (Halfprin) 81 mg PO DAILY [facility] Last Admin: 05/01/18 09:17 Dose: 81 mg Bisacodyl (Dulcolax) 5 mg PO DAILY PRN PRN Reason: Constipation Last Admin: 04/30/18 20:02 Dose: 5 mg Docusate Sodium (Colace) 100 mg PO BID [facility] Last Admin: 05/01/18 09:14 Dose: 100 mg Enoxaparin Sodium (Lovenox) 30 mg SUBCUT Q12H [facility] Last Admin: 05/01/18 04:35 Dose: 30 mg Famotidine (Pepcid) 20 mg PO Q12H [facility] Last Admin: 05/01/18 09:14 Dose: 20 mg Finasteride (Proscar) 5 mg PO DAILY [facility] Last Admin: 05/01/18 09:17 Dose: 5 mg Isosorbide Mononitrate (Imdur) 30 mg PO DAILY [facility] Last Admin: 05/01/18 09:14 Dose: 30 mg Ketorolac Tromethamine (Toradol) 15 mg IVPUSH Q6H PRN PRN Reason: Pain Magnesium Hydroxide (Milk Of Magnesia) 30 ml PO BID PRN PRN Reason: Constipation Metoprolol Succinate (Toprol Xl) 12.5 mg PO DAILY [facility] Last Admin: 05/01/18 09:16 Dose: 12.5 mg Morphine Sulfate (Morphine) 2 mg IVPUSH Q2H PRN PRN Reason: Breakthrough Pain Multivitamins (Thera) 1 each PO DAILY [facility] Last Admin: 05/01/18 09:14 Dose: 1 each Nitroglycerin (Nitrostat) 0.4 mg SL ASDIRECTED PRN PRN Reason: Chest Pain Ondansetron HCl (Zofran) 4 mg IVPUSH Q6H PRN PRN Reason: Nausea/Vomiting Hydrocortisone 2.5% (1 Applic) 0 each RECTAL DAILY PRN PRN Reason: Hemorrhoids Senna (Senna) 8.6 mg PO BID PRN PRN Reason: Constipation Simvastatin (Zocor) 40 mg PO BEDTIME [facility] Last Admin: 04/30/18 20:02 Dose: 40 mg Sodium Chloride (Saline Flush) 10 ml FLUSH ASDIRECTED PRN PRN Reason: Keep Vein Open Tamsulosin HCl (Flomax) 0.4 mg PO DAILY [facility] Last Admin: 05/01/18 09:16 Dose: 0.4 mg Timolol Maleate (Timoptic 0.5% Ophth Soln) 0 ml EYEBOTH DAILY [facility] Last Admin: 05/01/18 09:19 Dose: Not Given Tramadol HCl (Ultram) 50 mg PO BID [facility] Last Admin: 05/01/18 09:17 Dose: 50 mg Warfarin Sodium (Pharmacy To Dose - Warfarin) 1 dose .XX ASDIRECTED [facility] Discontinued Medications Acetaminophen (Tylenol) 975 mg PO NOW ONE Stop: 04/29/18 08:31 Last Admin: 04/29/18 10:30 Dose: 975 mg Bupivacaine HCl (Marcaine 0.25%) Confirm Administered Dose 30 ml .ROUTE .STK- MED ONE Stop: 04/29/18 08:50 Last Admin: 04/29/18 12:43 Dose: 30 ml Bupivacaine HCl (Sensorcaine-Mpf 0.75%) Confirm Administered Dose 30 ml .ROUTE .STK-MED ONE Stop: 04/29/18 09:49 Cefazolin Sodium (Ancef) Confirm Administered Dose 2 gm .ROUTE .STK-MED ONE Stop: 04/29/18 08:49 Cefazolin Sodium (Ancef) Confirm Administered Dose 2 gm .ROUTE .STK-MED ONE Stop: 04/29/18 11:24 Last Admin: 04/29/18 12:37 Dose: 2 gm Morphine Sulfate 8 mg/Epinephrine HCl 0.3 mg/Cefuroxime Sodium 750 mg/Ketorolac Tromethamine 30 mg/Sodium Chloride 27.9 ml 0 mg .XX ONETIME ONE Stop: 04/29/18 06:59 Last Admin: 04/29/18 12:42 Dose: 788.3 mg Diphenhydramine HCl (Benadryl) 25 mg IVPUSH Q6H PRN PRN Reason: Itching Stop: 04/29/18 23:00 Ephedrine Sulfate (Ephedrine In Ns) Confirm Administered Dose 25 mg .ROUTE .STK- MED ONE Stop: 04/29/18 11:06 Ephedrine Sulfate (Ephedrine In Ns) Confirm Administered Dose 25 mg .ROUTE .STK- MED ONE Stop: 04/29/18 11:26 Fentanyl (Sublimaze) Confirm Administered Dose 100 mcg .ROUTE .STK-MED ONE Stop: 04/29/18 09:44 Lactated Ringer's (Ringers, Lactated) 1,000 mls @ 125 mls/hr IV ASDIRECTED [facility] Last Admin: 04/29/18 14:02 Dose: 125 mls/hr Cefazolin Sodium/Dextrose 2 gm (/ Premix) 50 mls @ 100 mls/hr IV Q8H [facility] Stop: 04/29/18 23:29 Last Admin: 04/30/18 02:53 Dose: Not Given Lactated Ringer's (Ringers, Lactated) Confirm Administered Dose 1,000 mls @ as directed .ROUTE .STK-MED ONE Stop: 04/29/18 11:57 Cefazolin Sodium/Dextrose 2 gm (/ Premix) 50 mls @ 100 mls/hr IV Q8H [facility] Stop: 04/30/18 19:29 Last Admin: 04/30/18 18:18 Dose: 100 mls/hr Iodine (Iodine 2% Mild Tincture) Confirm Administered Dose 30 ml .ROUTE .STK- MED ONE Stop: 04/29/18 08:50 Last Admin: 04/29/18 12:35 Dose: 18 ml Ketamine HCl (Ketalar) Confirm Administered Dose 500 mg .ROUTE .STK-MED ONE Stop: 04/29/18 09:49 Lidocaine/Sodium Bicarbonate (Buffered Lidocaine 1% In Ns 8.4%) 0.25 ml IDERM ONETIME PRN PRN Reason: Prior to IV Start Stop: 04/29/18 18:00 Morphine Sulfate (Duramorph Pf) Confirm Administered Dose 10 mg .ROUTE .STK-MED ONE Stop: 04/29/18 09:56 Naloxone HCl (Narcan) 0.1 mg IVPUSH Q5M PRN PRN Reason: Oversedation Oxycodone HCl (Oxycontin) 10 mg PO ONETIME ONE Stop: 04/29/18 08:31 Last Admin: 04/29/18 10:30 Dose: 10 mg Oxycodone/Acetaminophen (Percocet 325-5 Mg) 1 - 2 tab PO Q4H PRN PRN Reason: Pain Phenylephrine HCl (Phenylephrine In Ns 100 Mcg/Ml) Confirm Administered Dose 1 mg .ROUTE .STK-MED ONE Stop: 04/29/18 11:32 Phenylephrine HCl (Phenylephrine In Ns 100 Mcg/Ml) Confirm Administered Dose 1 mg .ROUTE .STK-MED ONE Stop: 04/29/18 12:56 Pregabalin (Lyrica) 50 mg PO DAILY [facility] Stop: 04/29/18 11:00 Last Admin: 04/29/18 10:30 Dose: 50 mg Propofol (Diprivan 20 Ml) Confirm Administered Dose 200 mg .ROUTE .STK-MED ONE Stop: 04/29/18 09:44 Propofol (Diprivan 20 Ml) Confirm Administered Dose 200 mg .ROUTE .STK-MED ONE Stop: 04/29/18 11:37 Propofol (Diprivan 20 Ml) Confirm Administered Dose 200 mg .ROUTE .STK-MED ONE Stop: 04/29/18 12:24 Tranexamic Acid (Cyklokapron) Confirm Administered Dose 1,000 mg .ROUTE .STK- MED ONE Stop: 04/29/18 08:49 Last Admin: 04/29/18 12:44 Dose: 1,000 mg Vancomycin HCl (Vancomycin) Confirm Administered Dose 1 gm .ROUTE .STK-MED ONE Stop: 04/29/18 08:49 Last Admin: 04/29/18 12:45 Dose: 1 gm Warfarin Sodium (Coumadin) 5 mg PO ONETIME ONE Stop: 04/29/18 18:01 Last Admin: 04/29/18 17:21 Dose: 5 mg Warfarin Sodium (Coumadin) 5 mg PO ONETIME ONE Stop: 04/30/18 18:01 Last Admin: 04/30/18 18:18 Dose: 5 mg - Exam Wound/Incisions: Dressing Dry and Intact General: Alert, Cooperative, No Acute Distress Lungs: Normal Respiratory Effort Extremities: Other (Left thigh soft, nontender. NVS intact for LLE. Shaggy's negative BLE.) - Problem List Review Problem List Initiated/Reviewed/Updated: Yes - My Orders Last 24 Hours: Active Orders 24 hr Category Date Time Status Bladder Scan [RC] 11,17,23,05 Care 04/30/18 10:58 Active BASIC METABOLIC PANEL,BMP [CHEM] AM Lab 05/02/18 05:11 Ordered BASIC METABOLIC PANEL,BMP [CHEM] AM Lab 05/03/18 05:11 Ordered BASIC METABOLIC PANEL,BMP [CHEM] AM Lab 05/04/18 05:11 Ordered BASIC METABOLIC PANEL,BMP [CHEM] AM Lab 05/05/18 05:11 Ordered CBC WITH AUTO DIFF [HEME] AM Lab 05/02/18 05:11 Ordered CBC WITH AUTO DIFF [HEME] AM Lab 05/03/18 05:11 Ordered CBC WITH AUTO DIFF [HEME] AM Lab 05/04/18 05:11 Ordered CBC WITH AUTO DIFF [HEME] AM Lab 05/05/18 05:11 Ordered MAGNESIUM [CHEM] AM Lab 05/02/18 05:11 Ordered MAGNESIUM [CHEM] AM Lab 05/03/18 05:11 Ordered MAGNESIUM [CHEM] AM Lab 05/04/18 05:11 Ordered MAGNESIUM [CHEM] AM Lab 05/05/18 05:11 Ordered Timolol Maleate [Timoptic 0.5% Ophth Soln] Med 05/01/18 09:00 Active 0 ml EYEBOTH DAILY Resuscitation Status Routine Resus Stat 05/01/18 09:27 Ordered Medication Orders Hydrocodone Bitart/Acetaminophen (Balm 325-5 Mg) 1 - 2 tab PO Q4H PRN PRN Reason: Pain Last Admin: 05/01/18 10:59 Dose: 2 tab Admin: 05/01/18 04:39 Dose: 2 tab Admin: 04/30/18 22:08 Dose: 2 tab Admin: 04/30/18 16:36 Dose: 2 tab Admin: 04/30/18 11:20 Dose: 1 tab Admin: 04/30/18 02:51 Dose: 2 tab Aspirin (Halfprin) 81 mg PO DAILY [facility] Last Admin: 05/01/18 09:17 Dose: 81 mg Admin: 04/30/18 09:33 Dose: 81 mg Bisacodyl (Dulcolax) 5 mg PO DAILY PRN PRN Reason: Constipation Last Admin: 04/30/18 20:02 Dose: 5 mg Docusate Sodium (Colace) 100 mg PO BID [facility] Last Admin: 05/01/18 09:14 Dose: 100 mg Admin: 04/30/18 20:02 Dose: 100 mg Admin: 04/30/18 09:34 Dose: 100 mg Admin: 04/29/18 21:25 Dose: 100 mg Enoxaparin Sodium (Lovenox) 30 mg SUBCUT Q12H [facility] Last Admin: 05/01/18 04:35 Dose: 30 mg Admin: 04/30/18 16:40 Dose: 30 mg Admin: 04/30/18 03:48 Dose: 30 mg Admin: 04/29/18 17:21 Dose: 30 mg Famotidine (Pepcid) 20 mg PO Q12H [facility] Last Admin: 05/01/18 09:14 Dose: 20 mg Admin: 04/30/18 20:01 Dose: 20 mg Admin: 04/30/18 09:33 Dose: 20 mg Admin: 04/29/18 21:25 Dose: 20 mg Finasteride (Proscar) 5 mg PO DAILY [facility] Last Admin: 05/01/18 09:17 Dose: 5 mg Admin: 04/30/18 09:33 Dose: 5 mg Isosorbide Mononitrate (Imdur) 30 mg PO DAILY [facility] Last Admin: 05/01/18 09:14 Dose: 30 mg Admin: 04/30/18 09:34 Dose: 30 mg Ketorolac Tromethamine (Toradol) 15 mg IVPUSH Q6H PRN PRN Reason: Pain Magnesium Hydroxide (Milk Of Magnesia) 30 ml PO BID PRN PRN Reason: Constipation Metoprolol Succinate (Toprol Xl) 12.5 mg PO DAILY [facility] Last Admin: 05/01/18 09:16 Dose: 12.5 mg Admin: 04/30/18 09:32 Dose: 12.5 mg Morphine Sulfate (Morphine) 2 mg IVPUSH Q2H PRN PRN Reason: Breakthrough Pain Multivitamins (Thera) 1 each PO DAILY [facility] Last Admin: 05/01/18 09:14 Dose: 1 each Admin: 04/30/18 09:33 Dose: 1 each Nitroglycerin (Nitrostat) 0.4 mg SL ASDIRECTED PRN PRN Reason: Chest Pain Ondansetron HCl (Zofran) 4 mg IVPUSH Q6H PRN PRN Reason: Nausea/Vomiting Hydrocortisone 2.5% (1 Applic) 0 each RECTAL DAILY PRN PRN Reason: Hemorrhoids Senna (Senna) 8.6 mg PO BID PRN PRN Reason: Constipation Simvastatin (Zocor) 40 mg PO BEDTIME [facility] Last Admin: 04/30/18 20:02 Dose: 40 mg Admin: 04/29/18 21:25 Dose: 40 mg Sodium Chloride (Saline Flush) 10 ml FLUSH ASDIRECTED PRN PRN Reason: Keep Vein Open Tamsulosin HCl (Flomax) 0.4 mg PO DAILY [facility] Last Admin: 05/01/18 09:16 Dose: 0.4 mg Admin: 04/30/18 09:34 Dose: 0.4 mg Timolol Maleate (Timoptic 0.5% Ophth Soln) 0 ml EYEBOTH DAILY [facility] Last Admin: 05/01/18 09:19 Dose: Not Given Tramadol HCl (Ultram) 50 mg PO BID [facility] Last Admin: 05/01/18 09:17 Dose: 50 mg Admin: 04/30/18 20:01 Dose: 50 mg Admin: 04/30/18 09:33 Dose: 50 mg Admin: 04/29/18 21:25 Dose: 50 mg Warfarin Sodium (Pharmacy To Dose - Warfarin) 1 dose .XX ASDIRECTED [facility] - Assessment Assessment (Free Text/Narrative):: POD#2 - left JENNA - Plan Plan (Free Text/Narrative):: 1. Medical management per Hospitalist service. 2. Lovenox until INR therapeutic. 3. Pain is controlled with Balm. 4. Discharge to [facility] for continued therapy. The pt will remain in Hospital > 96 hours while awaiting [facility] placement and for continued therapy and monitoring. The pt's case was discussed with Dr. Boo.
[2018-05-01] MEDS ORDERED: Potassium Chloride 20 MEQ Tab.ER PO ONE (11:40)
[2018-05-01] MEDS ORDERED: LORazepam 0.5 MG Tab PO PRN (14:01)
[2018-05-01] MEDS ORDERED: Warfarin 5 MG Tab PO ONE (18:00)
[2018-05-01] MEDS: Simvastatin 40 MG Tab PO SCH (21:37)
[2018-05-02] MEDS: Enoxaparin 30 MG/0.3 ML Syringe SUBCUT SCH (04:17)
[2018-05-02] MEDS: Acetaminophen/HYDROcodone 325-5 MG Tab PO PRN (04:17)
--- NOTE | 2018-05-02 07:18 | PCM.CONSN ---
- General Info Date of Service: 05/02/18 Admission Dx/Problem (Free Text): Admission Diagnosis/Problem Admission Diagnosis/Problem Osteoarthritis of hip Subjective Update: In to see Brother Elias. He is resting in the chair but wakes easily to my hello. He reports pain is 3/10 but controlled. Denies chest pain, nausea, SOB, palpations. He is excited to get to [facility]. He reports he is passing gas but has not had a bowel movement. Nursing is aware and he has been getting laxatives and stool softeners. He is on multiple laxatives at home. He reports he only feels slightly constipated and it is not too bad. [facility] can follow-up with this if he has not had a BM before leaving. He will be discharged today to [facility] for a rehab stay. Functional Status: Reports: Pain Controlled, Tolerating Diet, Ambulating, Urinating, Incentive Spirometry. Denies: New Symptoms - Review of Systems General: Reports: No Symptoms. Denies: Fever, Weakness, Fatigue, Malaise HEENT: Reports: No Symptoms Pulmonary: Reports: No Symptoms. Denies: Shortness of Breath, Cough, Wheezing Cardiovascular: Reports: No Symptoms. Denies: Chest Pain, Palpitations, Dyspnea on Exertion Gastrointestinal: Reports: Constipation (mildly ). Denies: Abdominal Pain, Diarrhea, Nausea, Vomiting Genitourinary: Reports: No Symptoms Musculoskeletal: Reports: Joint Pain Skin: Reports: No Symptoms Neurological: Reports: No Symptoms Psychiatric: Reports: No Symptoms - Patient Data Vitals - Most Recent: Last Vital Signs Temp 98.8 F 05/02/18 04:30 Pulse 73 05/02/18 04:30 Resp 16 05/02/18 04:30 BP 116/62 05/02/18 04:30 Pulse Ox 92 L 05/02/18 04:30 Weight - Most Recent: 192 lb 11.2 oz I&O - Last 24 Hours: Intake & Output 05/01/18 05/02/18 05/02/18 22:59 06:59 14:59 Intake Total 600 800 Balance 600 800 Lab Results Last 24 Hours: Laboratory Results - last 24 hr 05/01/18 05/01/18 05/01/18 Range/Units 08:36 09:05 09:05 WBC 8.75 (4.23-9.07) K/mm3 RBC 3.97 L (4.63-6.08) M/mm3 Hgb 13.1 L (13.7-17.5) gm/L Hct 39.5 L (40.1-51.0) % MCV 99.5 H (79.0-92.2) fl MCH 33.0 H (25.7-32.2) pg MCHC 33.2 (32.2-35.5) g/dl RDW Std Deviation 51.0 H (35.1-43.9) fL Plt Count 152 L (163-337) K/mm3 MPV 10.8 (9.4-12.3) fl Neut % (Auto) 63.2 (34.0-67.9) % Lymph % (Auto) 23.1 (21.8-53.1) % [place] % (Auto) 11.7 (5.3-12.2) % Eos % (Auto) 1.3 (0.8-7.0) Baso % (Auto) 0.2 (0.1-1.2) % Neut # (Auto) 5.54 H (1.78-5.38) K/mm3 Lymph # (Auto) 2.02 (1.32-3.57) K/mm3 [place] # (Auto) 1.02 H (0.30-0.82) K/mm3 Eos # (Auto) 0.11 (0.04-0.54) K/mm3 Baso # (Auto) 0.02 (0.01-0.08) K/mm3 PT 12.2 H (9.5-12.1) SECONDS INR 1.12 Sodium 138 (136-145) mEq/L Potassium 3.4 L (3.5-5.1) mEq/L Chloride 102 (98-107) mEq/L Carbon Dioxide 28 (21-32) mEq/L Anion Gap 11.4 (5-15) BUN 13 (7-18) mg/dL Creatinine 0.8 (0.7-1.3) mg/dL Est Cr Clr Drug Dosing 60.92 mL/min Estimated GFR (MDRD) > 60 (>60) mL/min BUN/Creatinine Ratio 16.3 (14-18) Glucose 126 H (83-115) mg/dL Calcium 9.1 (8.5-10.1) mg/dL Magnesium 1.9 (1.8-2.4) mg/dl 05/02/18 Range/Units 05:56 WBC 7.32 (4.23-9.07) K/mm3 RBC 3.35 L (4.63-6.08) M/mm3 Hgb 11.2 L (13.7-17.5) gm/L Hct 33.4 L (40.1-51.0) % MCV 99.7 H (79.0-92.2) fl MCH 33.4 H (25.7-32.2) pg MCHC 33.5 (32.2-35.5) g/dl RDW Std Deviation 50.1 H (35.1-43.9) fL Plt Count 142 L (163-337) K/mm3 MPV 11.1 (9.4-12.3) fl Neut % (Auto) 65.4 (34.0-67.9) % Lymph % (Auto) 18.6 L (21.8-53.1) % [place] % (Auto) 14.1 H (5.3-12.2) % Eos % (Auto) 1.5 (0.8-7.0) Baso % (Auto) 0.1 (0.1-1.2) % Neut # (Auto) 4.79 (1.78-5.38) K/mm3 Lymph # (Auto) 1.36 (1.32-3.57) K/mm3 [place] # (Auto) 1.03 H (0.30-0.82) K/mm3 Eos # (Auto) 0.11 (0.04-0.54) K/mm3 Baso # (Auto) 0.01 (0.01-0.08) K/mm3 PT (9.5-12.1) SECONDS INR Sodium (136-145) mEq/L Potassium (3.5-5.1) mEq/L Chloride (98-107) mEq/L Carbon Dioxide (21-32) mEq/L Anion Gap (5-15) BUN (7-18) mg/dL Creatinine (0.7-1.3) mg/dL Est Cr Clr Drug Dosing mL/min Estimated GFR (MDRD) (>60) mL/min BUN/Creatinine Ratio (14-18) Glucose (83-115) mg/dL Calcium (8.5-10.1) mg/dL Magnesium (1.8-2.4) mg/dl Med Orders - Current: Current Medications Hydrocodone Bitart/Acetaminophen ([place] 325-5 Mg) 1 - 2 tab PO Q4H PRN PRN Reason: Pain Last Admin: 05/02/18 04:17 Dose: 2 tab Aspirin (Halfprin) 81 mg PO DAILY [facility] Last Admin: 05/01/18 09:17 Dose: 81 mg Bisacodyl (Dulcolax) 5 mg PO DAILY PRN PRN Reason: Constipation Last Admin: 04/30/18 20:02 Dose: 5 mg Docusate Sodium (Colace) 100 mg PO BID [facility] Last Admin: 05/01/18 21:37 Dose: 100 mg Enoxaparin Sodium (Lovenox) 30 mg SUBCUT Q12H [facility] Last Admin: 05/02/18 04:17 Dose: 30 mg Famotidine (Pepcid) 20 mg PO Q12H [facility] Last Admin: 05/01/18 21:37 Dose: 20 mg Finasteride (Proscar) 5 mg PO DAILY [facility] Last Admin: 05/01/18 09:17 Dose: 5 mg Isosorbide Mononitrate (Imdur) 30 mg PO DAILY [facility] Last Admin: 05/01/18 09:14 Dose: 30 mg Ketorolac Tromethamine (Toradol) 15 mg IVPUSH Q6H PRN PRN Reason: Pain Lorazepam (Ativan) 0.5 mg PO Q6H PRN PRN Reason: anxiety Magnesium Hydroxide (Milk Of Magnesia) 30 ml PO BID PRN PRN Reason: Constipation Last Admin: 05/01/18 16:18 Dose: 30 ml Metoprolol Succinate (Toprol Xl) 12.5 mg PO DAILY [facility] Last Admin: 05/01/18 09:16 Dose: 12.5 mg Morphine Sulfate (Morphine) 2 mg IVPUSH Q2H PRN PRN Reason: Breakthrough Pain Multivitamins (Thera) 1 each PO DAILY [facility] Last Admin: 05/01/18 09:14 Dose: 1 each Nitroglycerin (Nitrostat) 0.4 mg SL ASDIRECTED PRN PRN Reason: Chest Pain Ondansetron HCl (Zofran) 4 mg IVPUSH Q6H PRN PRN Reason: Nausea/Vomiting Hydrocortisone 2.5% (1 Applic) 0 each RECTAL DAILY PRN PRN Reason: Hemorrhoids Senna (Senna) 8.6 mg PO BID PRN PRN Reason: Constipation Simvastatin (Zocor) 40 mg PO BEDTIME [facility] Last Admin: 05/01/18 21:37 Dose: 40 mg Sodium Chloride (Saline Flush) 10 ml FLUSH ASDIRECTED PRN PRN Reason: Keep Vein Open Tamsulosin HCl (Flomax) 0.4 mg PO DAILY [facility] Last Admin: 05/01/18 09:16 Dose: 0.4 mg Timolol Maleate (Timoptic 0.5% Ophth Soln) 0 ml EYEBOTH DAILY [facility] Last Admin: 05/01/18 09:19 Dose: Not Given Tramadol HCl (Ultram) 50 mg PO BID [facility] Last Admin: 05/01/18 21:38 Dose: 50 mg Warfarin Sodium (Pharmacy To Dose - Warfarin) 1 dose .XX ASDIRECTED [facility] Discontinued Medications Acetaminophen (Tylenol) 975 mg PO NOW ONE Stop: 04/29/18 08:31 Last Admin: 04/29/18 10:30 Dose: 975 mg Bupivacaine HCl (Marcaine 0.25%) Confirm Administered Dose 30 ml .ROUTE .STK- MED ONE Stop: 04/29/18 08:50 Last Admin: 04/29/18 12:43 Dose: 30 ml Bupivacaine HCl (Sensorcaine-Mpf 0.75%) Confirm Administered Dose 30 ml .ROUTE .STK-MED ONE Stop: 04/29/18 09:49 Cefazolin Sodium (Ancef) Confirm Administered Dose 2 gm .ROUTE .STK-MED ONE Stop: 04/29/18 08:49 Cefazolin Sodium (Ancef) Confirm Administered Dose 2 gm .ROUTE .STK-MED ONE Stop: 04/29/18 11:24 Last Admin: 04/29/18 12:37 Dose: 2 gm Morphine Sulfate 8 mg/Epinephrine HCl 0.3 mg/Cefuroxime Sodium 750 mg/Ketorolac Tromethamine 30 mg/Sodium Chloride 27.9 ml 0 mg .XX ONETIME ONE Stop: 04/29/18 06:59 Last Admin: 04/29/18 12:42 Dose: 788.3 mg Diphenhydramine HCl (Benadryl) 25 mg IVPUSH Q6H PRN PRN Reason: Itching Stop: 04/29/18 23:00 Ephedrine Sulfate (Ephedrine In Ns) Confirm Administered Dose 25 mg .ROUTE .STK- MED ONE Stop: 04/29/18 11:06 Ephedrine Sulfate (Ephedrine In Ns) Confirm Administered Dose 25 mg .ROUTE .STK- MED ONE Stop: 04/29/18 11:26 Fentanyl (Sublimaze) Confirm Administered Dose 100 mcg .ROUTE .STK-MED ONE Stop: 04/29/18 09:44 Lactated Ringer's (Ringers, Lactated) 1,000 mls @ 125 mls/hr IV ASDIRECTED [facility] Last Admin: 04/29/18 14:02 Dose: 125 mls/hr Cefazolin Sodium/Dextrose 2 gm (/ Premix) 50 mls @ 100 mls/hr IV Q8H [facility] Stop: 04/29/18 23:29 Last Admin: 04/30/18 02:53 Dose: Not Given Lactated Ringer's (Ringers, Lactated) Confirm Administered Dose 1,000 mls @ as directed .ROUTE .STK-MED ONE Stop: 04/29/18 11:57 Cefazolin Sodium/Dextrose 2 gm (/ Premix) 50 mls @ 100 mls/hr IV Q8H [facility] Stop: 04/30/18 19:29 Last Admin: 04/30/18 18:18 Dose: 100 mls/hr Iodine (Iodine 2% Mild Tincture) Confirm Administered Dose 30 ml .ROUTE .STK- MED ONE Stop: 04/29/18 08:50 Last Admin: 04/29/18 12:35 Dose: 18 ml Ketamine HCl (Ketalar) Confirm Administered Dose 500 mg .ROUTE .STK-MED ONE Stop: 04/29/18 09:49 Lidocaine/Sodium Bicarbonate (Buffered Lidocaine 1% In Ns 8.4%) 0.25 ml IDERM ONETIME PRN PRN Reason: Prior to IV Start Stop: 04/29/18 18:00 Morphine Sulfate (Duramorph Pf) Confirm Administered Dose 10 mg .ROUTE .STK-MED ONE Stop: 04/29/18 09:56 Naloxone HCl (Narcan) 0.1 mg IVPUSH Q5M PRN PRN Reason: Oversedation Oxycodone HCl (Oxycontin) 10 mg PO ONETIME ONE Stop: 04/29/18 08:31 Last Admin: 04/29/18 10:30 Dose: 10 mg Oxycodone/Acetaminophen (Percocet 325-5 Mg) 1 - 2 tab PO Q4H PRN PRN Reason: Pain Phenylephrine HCl (Phenylephrine In Ns 100 Mcg/Ml) Confirm Administered Dose 1 mg .ROUTE .STK-MED ONE Stop: 04/29/18 11:32 Phenylephrine HCl (Phenylephrine In Ns 100 Mcg/Ml) Confirm Administered Dose 1 mg .ROUTE .STK-MED ONE Stop: 04/29/18 12:56 Potassium Chloride (Klor-Con M20) 20 meq PO ONETIME ONE Stop: 05/01/18 11:41 Last Admin: 05/01/18 12:57 Dose: 20 meq Pregabalin (Lyrica) 50 mg PO DAILY [facility] Stop: 04/29/18 11:00 Last Admin: 04/29/18 10:30 Dose: 50 mg Propofol (Diprivan 20 Ml) Confirm Administered Dose 200 mg .ROUTE .STK-MED ONE Stop: 04/29/18 09:44 Propofol (Diprivan 20 Ml) Confirm Administered Dose 200 mg .ROUTE .STK-MED ONE Stop: 04/29/18 11:37 Propofol (Diprivan 20 Ml) Confirm Administered Dose 200 mg .ROUTE .STK-MED ONE Stop: 04/29/18 12:24 Tranexamic Acid (Cyklokapron) Confirm Administered Dose 1,000 mg .ROUTE .STK- MED ONE Stop: 04/29/18 08:49 Last Admin: 04/29/18 12:44 Dose: 1,000 mg Vancomycin HCl (Vancomycin) Confirm Administered Dose 1 gm .ROUTE .STK-MED ONE Stop: 04/29/18 08:49 Last Admin: 04/29/18 12:45 Dose: 1 gm Warfarin Sodium (Coumadin) 5 mg PO ONETIME ONE Stop: 04/29/18 18:01 Last Admin: 04/29/18 17:21 Dose: 5 mg Warfarin Sodium (Coumadin) 5 mg PO ONETIME ONE Stop: 04/30/18 18:01 Last Admin: 04/30/18 18:18 Dose: 5 mg Warfarin Sodium (Coumadin) 5 mg PO ONETIME ONE Stop: 05/01/18 18:01 Last Admin: 05/01/18 18:47 Dose: 5 mg - Exam Quality Assessment: DVT Prophylaxis General: Alert, Oriented, Cooperative, No Acute Distress HEENT: Pupils Equal, Pupils Reactive, EOMI, Mucous Membr. Moist/[place] Neck: Supple, Trachea Midline, No JVD Lungs: Clear to Auscultation, Normal Respiratory Effort Cardiovascular: Regular Rate, Regular Rhythm GI/Abdominal Exam: Normal Bowel Sounds, Soft, Non-Tender (Male) Exam: Deferred Back Exam: Normal Inspection, Full Range of Motion Extremities: Normal Inspection, Normal Range of Motion, Non-Tender, No Pedal Edema, Normal Capillary Refill Peripheral Pulses: 2+: Radial (L), Radial (R), Posterior Tibial (L), Posterior Tibial (R), Dorsalis Pedis (L), Dorsalis Pedis (R) Skin: Warm, Dry, Intact Neurological: No New Focal Deficit Psy/Mental Status: Alert, Normal Affect, Normal Mood Consult PN Assessment/Plan POD#: 3 Procedures: Procedures ANTITHROMBIN III ACTIVITY (12/05/16) ASSAY OF CK (CPK) (05/05/15) ASSAY OF HOMOCYSTINE (12/05/16) ASSAY OF LACTIC ACID (05/02/16) ASSAY OF LIPASE (05/02/16) ASSAY OF MAGNESIUM (05/02/16) ASSAY OF TROPONIN QUANT (09/20/16) ASSAY THYROID STIM HORMONE (10/03/16) BETA-2 GLYCOPROTEIN ANTIBODY (12/05/16) BILIRUBIN DIRECT (06/14/16) BILIRUBIN TOTAL (05/02/16) C DIFF AMPLIFIED PROBE (05/10/16) C-REACTIVE PROTEIN (05/02/16) CARDIOLIPIN ANTIBODY EA IG (12/05/16) CHEST X-RAY 1 VIEW FRONTAL (09/20/16) CHEST X-RAY 2VW FRONTAL&LATL (05/02/16) CLOT INHIBIT PROT C ACTIVITY (12/05/16) CLOT INHIBIT PROT S FREE (12/05/16) COMPLETE CBC AUTOMATED (08/22/17) COMPLETE CBC W/AUTO DIFF WBC (09/21/17) COMPREHEN METABOLIC PANEL (04/15/18) CT ABD & PELV W/CONTRAST (05/02/16) CULTURE AEROBIC IDENTIFY (04/07/15) CULTURE OTHR SPECIMN AEROBIC (04/07/15) DRAIN/INJ JOINT/BURSA W/O US (03/12/18) DXA BONE DENSITY AXIAL (04/24/18) ECHO EXAM OF ABDOMEN (05/02/16) ELECTROCARDIOGRAM TRACING (09/20/16) EMERGENCY DEPT VISIT (09/20/16) F2 GENE (12/05/16) F5 GENE (12/05/16) FIBRIN DEGRADATION QUANT (09/20/16) GLYCOSYLATED HEMOGLOBIN TEST (08/08/17) HEMOGLOBIN (05/23/16) HEPATOBIL SYST IMAGE W/DRUG (05/02/16) HYDRATE IV INFUSION ADD-ON (05/02/16) HYDRATION IV INFUSION INIT (09/20/16) LIPID PANEL (04/09/17) METABOLIC PANEL TOTAL CA (08/22/17) MICROBE SUSCEPTIBLE ALFONSO (04/07/15) MR-STAPH DNA AMP PROBE (04/15/18) OT EVALUATION (05/02/16) PROTHROMBIN TIME (04/24/18) PT EVALUATION (05/02/16) RBC SED RATE AUTOMATED (05/02/16) ROUTINE VENIPUNCTURE (04/24/18) CHAPO VIPER VENOM DILUTED (12/05/16) THER/PROPH/DIAG INJ IV PUSH (05/02/16) THER/PROPH/DIAG INJ SC/IM (05/02/16) THROMBOPLASTIN TIME PARTIAL (12/05/16) TTE W/DOPPLER COMPLETE (04/24/18) TX/PRO/DX INJ NEW DRUG ADDON (05/02/16) UR ALBUMIN QUANTITATIVE (04/09/17) URINALYSIS AUTO W/O SCOPE (06/16/15) URINALYSIS AUTO W/SCOPE (09/20/16) URINE CULTURE/COLONY COUNT (04/15/18) VANOMYCIN DNA AMP PROBE (05/10/16) X-RAY EXAM CHEST 2 VIEWS (04/15/18) X-RAY EXAM OF HAND (12/22/14) X-RAY EXAM UNILAT RIBS/CHEST (03/27/18) (1) S/P total hip arthroplasty SNOMED Code(s): 997173853717, 509727576737 Code(s): Z96.649 - PRESENCE OF UNSPECIFIED ARTIFICIAL HIP JOINT Priority: High Current Visit: Yes Qualifiers: Laterality: left Qualified Code(s): Z96.642 - Presence of left artificial hip joint (2) Osteoarthritis SNOMED Code(s): 744940145 Code(s): M19.90 - UNSPECIFIED OSTEOARTHRITIS, UNSPECIFIED SITE Priority: High Current Visit: Yes Qualifiers: Osteoarthritis location: hip Osteoarthritis type: primary Laterality: left Qualified Code(s): M16.12 - Unilateral primary osteoarthritis, left hip (3) History of myocardial infarction SNOMED Code(s): 619162761 Code(s): I25.2 - OLD MYOCARDIAL INFARCTION Priority: Medium Current Visit : No (4) CAD (coronary artery disease) SNOMED Code(s): 93922242 Code(s): I25.10 - ATHSCL HEART DISEASE OF [place] CORONARY ARTERY W/O ANG PCTRS Priority: Medium Current Visit: No Qualifiers: Coronary Disease-Associated Artery/Lesion type: unspecified vessel or lesion type Associated angina: angina presence unspecified (5) HLD (hyperlipidemia) SNOMED Code(s): 27045711 Code(s): E78.5 - HYPERLIPIDEMIA, UNSPECIFIED Priority: Medium Current Visit: No Qualifiers: Hyperlipidemia type: unspecified Qualified Code(s): E78.5 - Hyperlipidemia , unspecified (6) HTN (hypertension) SNOMED Code(s): 59622139 Code(s): I10 - ESSENTIAL (PRIMARY) HYPERTENSION Priority: Medium Current Visit: No Qualifiers: Hypertension type: unspecified Qualified Code(s): I10 - Essential (primary ) hypertension (7) History of pulmonary embolism SNOMED Code(s): 770071826 Code(s): Z86.711 - PERSONAL HISTORY OF PULMONARY EMBOLISM Priority: Medium Current Visit: No (8) Thrombocytopenia SNOMED Code(s): 417786736 Code(s): D69.6 - THROMBOCYTOPENIA, UNSPECIFIED Priority: Medium Current Visit: No (9) Type II diabetes mellitus SNOMED Code(s): 12472342 Code(s): E11.9 - TYPE 2 DIABETES MELLITUS WITHOUT COMPLICATIONS Priority: High Current Visit: Yes Qualifiers: Diabetes mellitus rn long term care insulin use: with rn long term care use Diabetes mellitus complication status: with unspecified complications Qualified Code(s) : E11.8 - Type 2 diabetes mellitus with unspecified complications; Z79.4 - detention (current) use of insulin (10) Anxiety SNOMED Code(s): 18092634 Code(s): F41.9 - ANXIETY DISORDER, UNSPECIFIED Priority: Medium Current Visit: No (11) History of prostate cancer SNOMED Code(s): 463279705 Code(s): Z85.46 - PERSONAL HISTORY OF MALIGNANT NEOPLASM OF PROSTATE Priority: Medium Current Visit: No (12) Urinary retention SNOMED Code(s): 383297403 Code(s): R33.9 - RETENTION OF URINE, UNSPECIFIED Priority: High Current Visit: Yes (13) Hypokalemia SNOMED Code(s): 13620015 Code(s): E87.6 - HYPOKALEMIA Priority: High Current Visit: Yes Problem List Initiated/Reviewed/Updated: Yes My Orders Last 24 Hours: My Active Orders 05/01/18 09:00 Timolol Maleate [Timoptic 0.5% Ophth Soln] 0 ml EYEBOTH DAILY 05/01/18 09:27 Resuscitation Status Routine 05/01/18 14:01 LORazepam [Ativan] 0.5 mg PO Q6H PRN 05/02/18 05:56 BASIC METABOLIC PANEL,BMP [CHEM] AM MAGNESIUM [CHEM] AM 05/03/18 05:11 BASIC METABOLIC PANEL,BMP [CHEM] AM CBC WITH AUTO DIFF [HEME] AM MAGNESIUM [CHEM] AM 05/04/18 05:11 BASIC METABOLIC PANEL,BMP [CHEM] AM CBC WITH AUTO DIFF [HEME] AM MAGNESIUM [CHEM] AM 05/05/18 05:11 BASIC METABOLIC PANEL,BMP [CHEM] AM CBC WITH AUTO DIFF [HEME] AM MAGNESIUM [CHEM] AM Plan: I/P: Acute: S/P left total knee arthroplasty - post-operative day 3 -DVT prophylaxis and pain management per primary care team -Warfarin with Lovenox bridging -PT/OT -IS/RT -Monitor oxygen saturation -Titrate oxygen as needed -Vital signs stable -Monitor labs -Pre-operative Hgb was 15.3; now 13.9-->12.2-->13.1-->11.2 -Pre-operative platelets was 10; now 146-->134-->152-->142 -Pre-operative eGFR was >60; now >60 -A1C of 6.65 Osteoarthritis of left knee -Pain management per primary care team Urinary retention - improved - at baseline -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 -Chronic incontinence -PT/OT reports patient voided significant amount while working with therapies -Shortly after nursing bladder scanned and found to be around 500mL residual -Straight catheter ordered -Continue protocol for urinary retention Hypokalemia, resolved -Potassium 3.4 on 05/01/18 -Supplement and monitor Chronic: [place] CAD HLD HTN TX PE OA hematuria anxiety Type II DM thrombocytopenia prostate cancer mild aortic stenosis defect clotting disorder neoplasm of skin prostate cancer measles anxiety Plan: CM for discharge planning - Likely SNF rehab stay- [facility] accepting GI prophylaxis Home medications as indicated Other orders as listed above Routine AM labs He is a full code. His PCP is Terri Rosario PA-C in [place]. Thank you for allowing us to participate in the care of this patient!! From a hospitalist standpoint he is doing very well. He has been urinating although he does have a history of incontinence. He has been working with therapies and doing well. He has been ambulating. His pain is controlled. He will need to have is INR checked regularly by his PCP. He is clear for discharge pending primary team agreement. He will be discharged to the [facility] for a rehab stay.
[2018-05-02] MEDS ORDERED: Bisacodyl 10 MG Supp RECTAL ONE (08:18)
[2018-05-02] MEDS: Timolol Maleate 0.5% Ophth Soln 5 ML Bottle EYEBOTH SCH (09:02)
[2018-05-02] MEDS: traMADol 50 MG Tab PO SCH (09:07)
[2018-05-02] MEDS: Metoprolol Succinate 25 MG Tab.ER PO SCH (09:09)
[2018-05-02] MEDS: Isosorbide Mononitrate 30 MG Tab.ER PO SCH (09:09)
[2018-05-02] MEDS: Aspirin 81 MG Tab.EC PO SCH (09:11)
[2018-05-02] MEDS: Multivitamins,Therapeutic Tab PO SCH (09:11)
[2018-05-02] MEDS: Finasteride 5 MG Tab PO SCH (09:11)
[2018-05-02] MEDS: Tamsulosin 0.4 MG Cap.ER PO SCH (09:11)
[2018-05-02] MEDS: Docusate Sodium 100 MG Cap PO SCH (09:11)
[2018-05-02] MEDS: Famotidine 20 MG Tab PO SCH (09:11)
[2018-05-02 09:13] VITALS: BP 118/78
--- NOTE | 2018-05-02 16:02 | PCM.DCSUM1 ---
Discharge Summary - Hospital Course Brief History: Abraham is an 87 yo male who underwent left JENNA with Dr. Boo on . The procedure was completed under spinal anesthesia. The pt tolerated the procedure well and was admitted to the Medical-Surgical Unit. Medical management was provided by the Hospitalist service. The pt's Hospital course was uneventful. The pt's Hgb on POD#1 was 12.2. On POD#1, Lovenox was initiated for VTE prophylaxis and will be used until INR therapeutic. SCDs and TEDs were also ordered. A Mepilex dressing was placed at the incision site at the time of surgery and remained clean and dry. The pt participated in P.T. and O.T. and progressed well. He followed the JENNA precautions. The pt was allowed to WBAT. On POD#3, the pt was deemed appropriate to discharge to the care home for continued therapy and monitoring. - Discharge Data Discharge Date: 05/02/18 Discharge Disposition: Home, Self-Care 01 Condition: Good - Patient Summary/Data Operative Procedure(s) Performed: left total hip arthroplasty Consults: Consultations 04/29/18 06:57 OT Evaluation and Treatment [CONS] Routine PT Evaluation and Treatment [CONS] Routine 04/29/18 07:00 Consult to Physician [CONS] Routine - Patient Instructions Diet: Usual Diet as Tolerated Activity: Apply Ice, As Tolerated, Elevate Extremity, Full Weight Bearing Driving: Do Not Drive Showering/Bathing: May Shower Showering/Bathing, Other: Do not soak in a tub, pool, whirlpool. Wound/Incision Care: Keep Operative Site/Wound Site Clean and Dry, Do NOT Change Dressing Notify Provider of: Fever, Increased Pain, Swelling and Redness, Drainage, Nausea and/or Vomiting Other/Special Instructions: Please get up and moving around every hour while awake. This helps to prevent blood clots. Please use your walker and have help with mobility as needed. Please take the blood thinner medication as directed. Please follow-up with your primary doctor to have your Coumadin level (INR) checked. You need to use the Lovenox injections until your Coumadin level is in the acceptable range. It is possible you may not need all of the injections and it is possible you will need more injections. You will require an evaluation with your primary care provider as soon as able. At home , please complete the exercises that you learned during the Hospital stay. Schedule for physical therapy. Follow the total hip precautions that you were taught during the Hospital stay. Use the pain medication as needed. The medication may cause drowsiness and constipation. Contact your primary care provider for instructions if you are constipated. You may use a stool softener like docusate sodium or Colace 100mg twice daily and/or a laxative like Miralax daily for constipation. Increase your water and fiber intake while you are using the pain medication. Please try to WEAN from use of the pain medication as soon as able. Wear the MARIANA hose during the day and you may remove these at night. Elevate the limb to decrease swelling. Place ice to the area often. Place a towel between your skin and the blue pad. Use the incentive spirometer often. Take deep breaths throughout the day. Increase your protein intake while you are healing. If you have diabetes, please closely monitor your blood sugars and notify your primary care provider with abnormal values. Call the Clinic with questions or concerns - [phone]. - Discharge Plan Prescriptions/Med Rec: Acetaminophen/HYDROcodone [Talmo 325-5 MG] 1 - 2 tab PO Q6H PRN #40 tablet PRN Reason: Pain Enoxaparin [Lovenox] 30 mg SUBCUT Q12H #10 syringe Home Medications: Home Meds FA/Lycopene/Lut/MV,Ca,Iron,Min [Centrum] 1 tab PO DAILY 09/20/16 [History] Finasteride 5 mg PO DAILY 09/20/16 [History] Isosorbide Mononitrate [Imdur] 30 mg PO DAILY 09/20/16 [History] Metoprolol Succinate 12.5 mg PO DAILY 09/20/16 [History] Simvastatin [Zocor] 40 mg PO BEDTIME 09/20/16 [History] Aspirin [Halfprin] 81 mg PO DAILY 04/25/18 [History] Hydrocortisone [Hydrocortisone 2.5% Crm] 1 applic RECTAL DAILY PRN 04/25/18 [ History] Nitroglycerin [Nitrostat] 0.4 mg SL ASDIRECTED PRN 04/25/18 [History] Tamsulosin [Flomax] 0.4 mg PO DAILY 04/25/18 [History] traMADol [Ultram] 50 mg PO Q6H 04/25/18 [History] Timolol Maleate [Timoptic 0.5% Ophth Soln] 5 ml OP DAILY 04/29/18 [History] Acetaminophen/HYDROcodone [Talmo 325-5 MG] 1 - 2 tab PO Q6H PRN #40 tablet 05/01 [Rx] Bisacodyl [Dulcolax] 5 mg PO DAILY PRN tablet 05/01/18 [Rx] Docusate Sodium [Colace] 100 mg PO BID cap 05/01/18 [Rx] Enoxaparin [Lovenox] 30 mg SUBCUT Q12H #10 syringe 05/01/18 [Rx] Famotidine [Pepcid] 20 mg PO Q12H tablet 05/01/18 [Rx] Sennosides [Senna] 8.6 mg PO BID PRN tablet 05/01/18 [Rx] Warfarin Pharmacy to Dose [Pharmacy to Dose - Warfarin] 1 dose .XX ASDIRECTED each 05/01/18 [Rx] Referrals: Kristen Villatoro, KARAN [Physician Sexual Abuse Counsellor] - - Patient Data Vitals - Most Recent: Last Vital Signs Temp 98.6 F 05/02/18 08:59 Pulse 73 05/02/18 09:09 Resp 18 05/02/18 08:59 BP 118/78 05/02/18 09:09 Pulse Ox 94 L 05/02/18 08:59 Weight - Most Recent: 192 lb 11.2 oz I&O - Last 24 hours: Intake & Output 05/02/18 05/02/18 05/02/18 06:59 14:59 22:59 Intake Total 800 0 Balance 800 0 Lab Results - Last 24 hrs: Laboratory Results - last 24 hr 05/02/18 05/02/18 05/02/18 Range/Units 05:56 05:56 05:56 WBC 7.32 (4.23-9.07) K/mm3 RBC 3.35 L (4.63-6.08) M/mm3 Hgb 11.2 L (13.7-17.5) gm/L Hct 33.4 L (40.1-51.0) % MCV 99.7 H (79.0-92.2) fl MCH 33.4 H (25.7-32.2) pg MCHC 33.5 (32.2-35.5) g/dl RDW Std Deviation 50.1 H (35.1-43.9) fL Plt Count 142 L (163-337) K/mm3 MPV 11.1 (9.4-12.3) fl Neut % (Auto) 65.4 (34.0-67.9) % Lymph % (Auto) 18.6 L (21.8-53.1) % Irwin % (Auto) 14.1 H (5.3-12.2) % Eos % (Auto) 1.5 (0.8-7.0) Baso % (Auto) 0.1 (0.1-1.2) % Neut # (Auto) 4.79 (1.78-5.38) K/mm3 Lymph # (Auto) 1.36 (1.32-3.57) K/mm3 Irwin # (Auto) 1.03 H (0.30-0.82) K/mm3 Eos # (Auto) 0.11 (0.04-0.54) K/mm3 Baso # (Auto) 0.01 (0.01-0.08) K/mm3 PT 12.9 H (9.5-12.1) SECONDS INR 1.19 Sodium 136 (136-145) mEq/L Potassium 4.0 (3.5-5.1) mEq/L Chloride 102 (98-107) mEq/L Carbon Dioxide 28 (21-32) mEq/L Anion Gap 10.0 (5-15) BUN 16 (7-18) mg/dL Creatinine 0.7 (0.7-1.3) mg/dL Est Cr Clr Drug Dosing 69.62 mL/min Estimated GFR (MDRD) > 60 (>60) mL/min BUN/Creatinine Ratio 22.9 H (14-18) Glucose 125 H (83-115) mg/dL Calcium 8.4 L (8.5-10.1) mg/dL Magnesium 2.1 (1.8-2.4) mg/dl Med Orders - Current: Current Medications Discontinued Medications Acetaminophen (Tylenol) 975 mg PO NOW ONE Stop: 04/29/18 08:31 Last Admin: 04/29/18 10:30 Dose: 975 mg Hydrocodone Bitart/Acetaminophen (Talmo 325-5 Mg) 1 - 2 tab PO Q4H PRN PRN Reason: Pain Last Admin: 05/02/18 04:17 Dose: 2 tab Aspirin (Halfprin) 81 mg PO DAILY [facility] Last Admin: 05/02/18 09:11 Dose: 81 mg Bisacodyl (Dulcolax) 5 mg PO DAILY PRN PRN Reason: Constipation Last Admin: 04/30/18 20:02 Dose: 5 mg Bisacodyl (Dulcolax) 10 mg RECTAL ONETIME ONE Stop: 05/02/18 08:19 Last Admin: 05/02/18 09:09 Dose: 10 mg Bupivacaine HCl (Marcaine 0.25%) Confirm Administered Dose 30 ml .ROUTE .STK- MED ONE Stop: 04/29/18 08:50 Last Admin: 04/29/18 12:43 Dose: 30 ml Bupivacaine HCl (Sensorcaine-Mpf 0.75%) Confirm Administered Dose 30 ml .ROUTE .STK-MED ONE Stop: 04/29/18 09:49 Cefazolin Sodium (Ancef) Confirm Administered Dose 2 gm .ROUTE .STK-MED ONE Stop: 04/29/18 08:49 Cefazolin Sodium (Ancef) Confirm Administered Dose 2 gm .ROUTE .STK-MED ONE Stop: 04/29/18 11:24 Last Admin: 04/29/18 12:37 Dose: 2 gm Morphine Sulfate 8 mg/Epinephrine HCl 0.3 mg/Cefuroxime Sodium 750 mg/Ketorolac Tromethamine 30 mg/Sodium Chloride 27.9 ml 0 mg .XX ONETIME ONE Stop: 04/29/18 06:59 Last Admin: 04/29/18 12:42 Dose: 788.3 mg Diphenhydramine HCl (Benadryl) 25 mg IVPUSH Q6H PRN PRN Reason: Itching Stop: 04/29/18 23:00 Docusate Sodium (Colace) 100 mg PO BID [facility] Last Admin: 05/02/18 09:11 Dose: 100 mg Enoxaparin Sodium (Lovenox) 30 mg SUBCUT Q12H [facility] Last Admin: 05/02/18 04:17 Dose: 30 mg Ephedrine Sulfate (Ephedrine In Ns) Confirm Administered Dose 25 mg .ROUTE .STK- MED ONE Stop: 04/29/18 11:06 Ephedrine Sulfate (Ephedrine In Ns) Confirm Administered Dose 25 mg .ROUTE .STK- MED ONE Stop: 04/29/18 11:26 Famotidine (Pepcid) 20 mg PO Q12H [facility] Last Admin: 05/02/18 09:11 Dose: 20 mg Fentanyl (Sublimaze) Confirm Administered Dose 100 mcg .ROUTE .STK-MED ONE Stop: 04/29/18 09:44 Finasteride (Proscar) 5 mg PO DAILY [facility] Last Admin: 05/02/18 09:11 Dose: 5 mg Lactated Ringer's (Ringers, Lactated) 1,000 mls @ 125 mls/hr IV ASDIRECTED [facility] Last Admin: 04/29/18 14:02 Dose: 125 mls/hr Cefazolin Sodium/Dextrose 2 gm (/ Premix) 50 mls @ 100 mls/hr IV Q8H [facility] Stop: 04/29/18 23:29 Last Admin: 04/30/18 02:53 Dose: Not Given Lactated Ringer's (Ringers, Lactated) Confirm Administered Dose 1,000 mls @ as directed .ROUTE .STK-MED ONE Stop: 04/29/18 11:57 Cefazolin Sodium/Dextrose 2 gm (/ Premix) 50 mls @ 100 mls/hr IV Q8H [facility] Stop: 04/30/18 19:29 Last Admin: 04/30/18 18:18 Dose: 100 mls/hr Iodine (Iodine 2% Mild Tincture) Confirm Administered Dose 30 ml .ROUTE .STK- MED ONE Stop: 04/29/18 08:50 Last Admin: 04/29/18 12:35 Dose: 18 ml Isosorbide Mononitrate (Imdur) 30 mg PO DAILY [facility] Last Admin: 05/02/18 09:09 Dose: 30 mg Ketamine HCl (Ketalar) Confirm Administered Dose 500 mg .ROUTE .STK-MED ONE Stop: 04/29/18 09:49 Ketorolac Tromethamine (Toradol) 15 mg IVPUSH Q6H PRN PRN Reason: Pain Lidocaine/Sodium Bicarbonate (Buffered Lidocaine 1% In Ns 8.4%) 0.25 ml IDERM ONETIME PRN PRN Reason: Prior to IV Start Stop: 04/29/18 18:00 Lorazepam (Ativan) 0.5 mg PO Q6H PRN PRN Reason: anxiety Magnesium Hydroxide (Milk Of Magnesia) 30 ml PO BID PRN PRN Reason: Constipation Last Admin: 05/01/18 16:18 Dose: 30 ml Metoprolol Succinate (Toprol Xl) 12.5 mg PO DAILY [facility] Last Admin: 05/02/18 09:09 Dose: 12.5 mg Morphine Sulfate (Morphine) 2 mg IVPUSH Q2H PRN PRN Reason: Breakthrough Pain Morphine Sulfate (Duramorph Pf) Confirm Administered Dose 10 mg .ROUTE .STK-MED ONE Stop: 04/29/18 09:56 Multivitamins (Thera) 1 each PO DAILY [facility] Last Admin: 05/02/18 09:11 Dose: 1 each Naloxone HCl (Narcan) 0.1 mg IVPUSH Q5M PRN PRN Reason: Oversedation Nitroglycerin (Nitrostat) 0.4 mg SL ASDIRECTED PRN PRN Reason: Chest Pain Ondansetron HCl (Zofran) 4 mg IVPUSH Q6H PRN PRN Reason: Nausea/Vomiting Oxycodone HCl (Oxycontin) 10 mg PO ONETIME ONE Stop: 04/29/18 08:31 Last Admin: 04/29/18 10:30 Dose: 10 mg Oxycodone/Acetaminophen (Percocet 325-5 Mg) 1 - 2 tab PO Q4H PRN PRN Reason: Pain Hydrocortisone 2.5% (1 Applic) 0 each RECTAL DAILY PRN PRN Reason: Hemorrhoids Phenylephrine HCl (Phenylephrine In Ns 100 Mcg/Ml) Confirm Administered Dose 1 mg .ROUTE .STK-MED ONE Stop: 04/29/18 11:32 Phenylephrine HCl (Phenylephrine In Ns 100 Mcg/Ml) Confirm Administered Dose 1 mg .ROUTE .STK-MED ONE Stop: 04/29/18 12:56 Potassium Chloride (Klor-Con M20) 20 meq PO ONETIME ONE Stop: 05/01/18 11:41 Last Admin: 05/01/18 12:57 Dose: 20 meq Pregabalin (Lyrica) 50 mg PO DAILY [facility] Stop: 04/29/18 11:00 Last Admin: 04/29/18 10:30 Dose: 50 mg Propofol (Diprivan 20 Ml) Confirm Administered Dose 200 mg .ROUTE .STK-MED ONE Stop: 04/29/18 09:44 Propofol (Diprivan 20 Ml) Confirm Administered Dose 200 mg .ROUTE .STK-MED ONE Stop: 04/29/18 11:37 Propofol (Diprivan 20 Ml) Confirm Administered Dose 200 mg .ROUTE .K-MED ONE Stop: 04/29/18 12:24 Senna (Senna) 8.6 mg PO BID PRN PRN Reason: Constipation Simvastatin (Zocor) 40 mg PO BEDTIME [facility] Last Admin: 05/01/18 21:37 Dose: 40 mg Sodium Chloride (Saline Flush) 10 ml FLUSH ASDIRECTED PRN PRN Reason: Keep Vein Open Tamsulosin HCl (Flomax) 0.4 mg PO DAILY [facility] Last Admin: 05/02/18 09:11 Dose: 0.4 mg Timolol Maleate (Timoptic 0.5% Ophth Soln) 0 ml EYEBOTH DAILY [facility] Last Admin: 05/02/18 09:02 Dose: Not Given Tramadol HCl (Ultram) 50 mg PO BID [facility] Last Admin: 05/02/18 09:07 Dose: 50 mg Tranexamic Acid (Cyklokapron) Confirm Administered Dose 1,000 mg .ROUTE .[facility]- MED ONE Stop: 04/29/18 08:49 Last Admin: 04/29/18 12:44 Dose: 1,000 mg Vancomycin HCl (Vancomycin) Confirm Administered Dose 1 gm .ROUTE .[facility] ONE Stop: 04/29/18 08:49 Last Admin: 04/29/18 12:45 Dose: 1 gm Warfarin Sodium (Pharmacy To Dose - Warfarin) 1 dose .XX ASDIRECTED [facility] Warfarin Sodium (Coumadin) 5 mg PO ONETIME ONE Stop: 04/29/18 18:01 Last Admin: 04/29/18 17:21 Dose: 5 mg Warfarin Sodium (Coumadin) 5 mg PO ONETIME ONE Stop: 04/30/18 18:01 Last Admin: 04/30/18 18:18 Dose: 5 mg Warfarin Sodium (Coumadin) 5 mg PO ONETIME ONE Stop: 05/01/18 18:01 Last Admin: 05/01/18 18:47 Dose: 5 mg Warfarin Sodium (Coumadin) 7.5 mg PO ONETIME ONE Stop: 05/02/18 18:01
[2018-05-02] MEDS ORDERED: Warfarin 7.5 MG Tab PO ONE (18:00)
--- NOTE | 2018-05-03 08:49 | PCM.SURGPN ---
- General Info Date of Service: 05/02/18 POD#: 3 Functional Status: Reports: Pain Controlled, Tolerating Diet, Ambulating, Urinating, Incentive Spirometry, Other (The pt feels prepared [facility].) - Patient Data Vitals - Most Recent: Last Vital Signs Temp 98.6 F 05/02/18 08:59 Pulse 73 05/02/18 09:09 Resp 18 05/02/18 08:59 BP 118/78 05/02/18 09:09 Pulse Ox 94 L 05/02/18 08:59 Weight - Most Recent: 192 lb 11.2 oz Med Orders - Current: Current Medications Discontinued Medications Acetaminophen (Tylenol) 975 mg PO NOW ONE Stop: 04/29/18 08:31 Last Admin: 04/29/18 10:30 Dose: 975 mg Hydrocodone Bitart/Acetaminophen (Sullivan 325-5 Mg) 1 - 2 tab PO Q4H PRN PRN Reason: Pain Last Admin: 05/02/18 04:17 Dose: 2 tab Aspirin (Halfprin) 81 mg PO DAILY [facility] Last Admin: 05/02/18 09:11 Dose: 81 mg Bisacodyl (Dulcolax) 5 mg PO DAILY PRN PRN Reason: Constipation Last Admin: 04/30/18 20:02 Dose: 5 mg Bisacodyl (Dulcolax) 10 mg RECTAL ONETIME ONE Stop: 05/02/18 08:19 Last Admin: 05/02/18 09:09 Dose: 10 mg Bupivacaine HCl (Marcaine 0.25%) Confirm Administered Dose 30 ml .ROUTE .STK- MED ONE Stop: 04/29/18 08:50 Last Admin: 04/29/18 12:43 Dose: 30 ml Bupivacaine HCl (Sensorcaine-Mpf 0.75%) Confirm Administered Dose 30 ml .ROUTE .STK-MED ONE Stop: 04/29/18 09:49 Cefazolin Sodium (Ancef) Confirm Administered Dose 2 gm .ROUTE .STK-MED ONE Stop: 04/29/18 08:49 Cefazolin Sodium (Ancef) Confirm Administered Dose 2 gm .ROUTE .STK-MED ONE Stop: 04/29/18 11:24 Last Admin: 04/29/18 12:37 Dose: 2 gm Morphine Sulfate 8 mg/Epinephrine HCl 0.3 mg/Cefuroxime Sodium 750 mg/Ketorolac Tromethamine 30 mg/Sodium Chloride 27.9 ml 0 mg .XX ONETIME ONE Stop: 04/29/18 06:59 Last Admin: 04/29/18 12:42 Dose: 788.3 mg Diphenhydramine HCl (Benadryl) 25 mg IVPUSH Q6H PRN PRN Reason: Itching Stop: 04/29/18 23:00 Docusate Sodium (Colace) 100 mg PO BID [facility] Last Admin: 05/02/18 09:11 Dose: 100 mg Enoxaparin Sodium (Lovenox) 30 mg SUBCUT Q12H [facility] Last Admin: 05/02/18 04:17 Dose: 30 mg Ephedrine Sulfate (Ephedrine In Ns) Confirm Administered Dose 25 mg .ROUTE .STK- MED ONE Stop: 04/29/18 11:06 Ephedrine Sulfate (Ephedrine In Ns) Confirm Administered Dose 25 mg .ROUTE .STK- MED ONE Stop: 04/29/18 11:26 Famotidine (Pepcid) 20 mg PO Q12H [facility] Last Admin: 05/02/18 09:11 Dose: 20 mg Fentanyl (Sublimaze) Confirm Administered Dose 100 mcg .ROUTE .STK-MED ONE Stop: 04/29/18 09:44 Finasteride (Proscar) 5 mg PO DAILY [facility] Last Admin: 05/02/18 09:11 Dose: 5 mg Lactated Ringer's (Ringers, Lactated) 1,000 mls @ 125 mls/hr IV ASDIRECTED [facility] Last Admin: 04/29/18 14:02 Dose: 125 mls/hr Cefazolin Sodium/Dextrose 2 gm (/ Premix) 50 mls @ 100 mls/hr IV Q8H [facility] Stop: 04/29/18 23:29 Last Admin: 04/30/18 02:53 Dose: Not Given Lactated Ringer's (Ringers, Lactated) Confirm Administered Dose 1,000 mls @ as directed .ROUTE .STK-MED ONE Stop: 04/29/18 11:57 Cefazolin Sodium/Dextrose 2 gm (/ Premix) 50 mls @ 100 mls/hr IV Q8H [facility] Stop: 04/30/18 19:29 Last Admin: 04/30/18 18:18 Dose: 100 mls/hr Iodine (Iodine 2% Mild Tincture) Confirm Administered Dose 30 ml .ROUTE .[facility] ONE Stop: 04/29/18 08:50 Last Admin: 04/29/18 12:35 Dose: 18 ml Isosorbide Mononitrate (Imdur) 30 mg PO DAILY [facility] Last Admin: 05/02/18 09:09 Dose: 30 mg Ketamine HCl (Ketalar) Confirm Administered Dose 500 mg .ROUTE .[facility] ONE Stop: 04/29/18 09:49 Ketorolac Tromethamine (Toradol) 15 mg IVPUSH Q6H PRN PRN Reason: Pain Lidocaine/Sodium Bicarbonate (Buffered Lidocaine 1% In Ns 8.4%) 0.25 ml IDERM ONETIME PRN PRN Reason: Prior to IV Start Stop: 04/29/18 18:00 Lorazepam (Ativan) 0.5 mg PO Q6H PRN PRN Reason: anxiety Magnesium Hydroxide (Milk Of Magnesia) 30 ml PO BID PRN PRN Reason: Constipation Last Admin: 05/01/18 16:18 Dose: 30 ml Metoprolol Succinate (Toprol Xl) 12.5 mg PO DAILY [facility] Last Admin: 05/02/18 09:09 Dose: 12.5 mg Morphine Sulfate (Morphine) 2 mg IVPUSH Q2H PRN PRN Reason: Breakthrough Pain Morphine Sulfate (Duramorph Pf) Confirm Administered Dose 10 mg .ROUTE .[facility] ONE Stop: 04/29/18 09:56 Multivitamins (Thera) 1 each PO DAILY [facility] Last Admin: 05/02/18 09:11 Dose: 1 each Naloxone HCl (Narcan) 0.1 mg IVPUSH Q5M PRN PRN Reason: Oversedation Nitroglycerin (Nitrostat) 0.4 mg SL ASDIRECTED PRN PRN Reason: Chest Pain Ondansetron HCl (Zofran) 4 mg IVPUSH Q6H PRN PRN Reason: Nausea/Vomiting Oxycodone HCl (Oxycontin) 10 mg PO ONETIME ONE Stop: 04/29/18 08:31 Last Admin: 04/29/18 10:30 Dose: 10 mg Oxycodone/Acetaminophen (Percocet 325-5 Mg) 1 - 2 tab PO Q4H PRN PRN Reason: Pain Hydrocortisone 2.5% (1 Applic) 0 each RECTAL DAILY PRN PRN Reason: Hemorrhoids Phenylephrine HCl (Phenylephrine In Ns 100 Mcg/Ml) Confirm Administered Dose 1 mg .ROUTE .STK-MED ONE Stop: 04/29/18 11:32 Phenylephrine HCl (Phenylephrine In Ns 100 Mcg/Ml) Confirm Administered Dose 1 mg .ROUTE .STK-MED ONE Stop: 04/29/18 12:56 Potassium Chloride (Klor-Con M20) 20 meq PO ONETIME ONE Stop: 05/01/18 11:41 Last Admin: 05/01/18 12:57 Dose: 20 meq Pregabalin (Lyrica) 50 mg PO DAILY [facility] Stop: 04/29/18 11:00 Last Admin: 04/29/18 10:30 Dose: 50 mg Propofol (Diprivan 20 Ml) Confirm Administered Dose 200 mg .ROUTE .STK-MED ONE Stop: 04/29/18 09:44 Propofol (Diprivan 20 Ml) Confirm Administered Dose 200 mg .ROUTE .STK-MED ONE Stop: 04/29/18 11:37 Propofol (Diprivan 20 Ml) Confirm Administered Dose 200 mg .ROUTE .STK-MED ONE Stop: 04/29/18 12:24 Senna (Senna) 8.6 mg PO BID PRN PRN Reason: Constipation Simvastatin (Zocor) 40 mg PO BEDTIME [facility] Last Admin: 05/01/18 21:37 Dose: 40 mg Sodium Chloride (Saline Flush) 10 ml FLUSH ASDIRECTED PRN PRN Reason: Keep Vein Open Tamsulosin HCl (Flomax) 0.4 mg PO DAILY [facility] Last Admin: 05/02/18 09:11 Dose: 0.4 mg Timolol Maleate (Timoptic 0.5% Ophth Soln) 0 ml EYEBOTH DAILY [facility] Last Admin: 05/02/18 09:02 Dose: Not Given Tramadol HCl (Ultram) 50 mg PO BID [facility] Last Admin: 05/02/18 09:07 Dose: 50 mg Tranexamic Acid (Cyklokapron) Confirm Administered Dose 1,000 mg .ROUTE .STK- MED ONE Stop: 04/29/18 08:49 Last Admin: 04/29/18 12:44 Dose: 1,000 mg Vancomycin HCl (Vancomycin) Confirm Administered Dose 1 gm .ROUTE .STK-MED ONE Stop: 04/29/18 08:49 Last Admin: 04/29/18 12:45 Dose: 1 gm Warfarin Sodium (Pharmacy To Dose - Warfarin) 1 dose .XX ASDIRECTED [facility] Warfarin Sodium (Coumadin) 5 mg PO ONETIME ONE Stop: 04/29/18 18:01 Last Admin: 04/29/18 17:21 Dose: 5 mg Warfarin Sodium (Coumadin) 5 mg PO ONETIME ONE Stop: 04/30/18 18:01 Last Admin: 04/30/18 18:18 Dose: 5 mg Warfarin Sodium (Coumadin) 5 mg PO ONETIME ONE Stop: 05/01/18 18:01 Last Admin: 05/01/18 18:47 Dose: 5 mg Warfarin Sodium (Coumadin) 7.5 mg PO ONETIME ONE Stop: 05/02/18 18:01 - Exam Wound/Incisions: Dressing Dry and Intact General: Alert, Cooperative, No Acute Distress Lungs: Normal Respiratory Effort - Problem List Review Problem List Initiated/Reviewed/Updated: Yes - Assessment Assessment (Free Text/Narrative):: POD#3 - left JENNA - Plan Plan (Free Text/Narrative):: [facility]. [facility]. 2. Lovenox injections until INR therapeutic. 3. [facility] Boo evaluated the pt today.
--- NOTE | 2018-05-06 12:52 | OR ---
DATE OF OPERATION: 04/29/2018 SURGEON: Edgardo Boo MD OPERATION PERFORMED: Left total hip arthroplasty. PREOPERATIVE DIAGNOSIS: Left hip osteoarthrosis. POSTOPERATIVE DIAGNOSIS: Left hip osteoarthrosis. ANESTHESIA: local MAC with spinal. ANESTHESIA PROVIDER: Malcom Trujillo CRNA ASSISTANTS: 1. Kristen Villatoro PA-C. 2. Rianna Finley LPN. ESTIMATED BLOOD LOSS: 350 mL. COMPLICATIONS: None. CONDITION: Stable. IMPLANTS: 1. [place] size 62 solid Tritanium acetabular cup. 2. Rob size 6 Accolade II stem. 3. Rob size 42 MDM components with 28 mm +0. DESCRIPTION OF PROCEDURE: The patient was identified in the preop holding area where the proper site was marked and identified by the surgeon. The patient was taken back to the operative theater where, after adequate anesthesia, the patient was placed in a right lateral decubitus position. An axillary roll was then placed. All bony prominences were well padded. Pegs were then placed and were well padded. The left hip was parallel to the floor. At this time, the left hip was then sterilely prepped and draped in the usual sterile fashion. OR time-out was performed. The patient received 2 g of IV Ancef. A standard incision was made centered over the greater trochanter. This was taken down to the IT band and gluteal fascia which was incised along the incisional length. Charnley retractor was then placed. Short external rotators were identified, and takedown of the short external rotators and capsule was done from the level of the piriformis down to the lesser trochanter. The hip was then dislocated. Neck cut was then completed. Anterior and posterior acetabular retractors were then placed. The labrum was then resected along with any remaining pulvinar. Starting with a size 54 reamer, I was able to ream up to a 62 which was found to have good adequate fixation with the trial. A 62 mm Tritanium acetabular cup was then impacted into place. An MDM cup was then impacted into place. Attention was turned to the femur. A femoral elevator was placed. Box chisel was used out laterally. Starter awl was placed down the canal. Starting with the 0 broach, I was able to broach up to a size 6 which was found to be rotationally and vertically stable. At this time, the 42 with a 28 +0 was then trialed. This was found to have adequate anabaptism of leg length and was noted to be stable throughout range of motion. At this time, a size 6 Accolade II stem was impacted into place along with the constructed MDM components, 42/28 +0. At this time, these were impacted into place, and then the hip was relocated. A #5 Ethibond suture was used for closure of the short external rotators and capsule. 1 L of dilute Betadine solution was irrigated through the hip along with 3 L of pulse lavage irrigation with Ancef. Topical tranexamic acid as well as vancomycin powder were then placed. A #2 barbed suture was used for closure of the IT band and gluteal fascia, 2-0 Vicryl was used subcutaneously, and Prineo was used for the skin. The patient tolerated the procedure well and was sent to the PACU in stable condition. MMODAL /[id number]
== END 2018-05-02 10:55 | disposition home or self-care (01) | DRG 470 ==
LOC: JD.MS 08:11
PROVIDERS: ADMIT Orthopaedic Surgery; ATTEND Orthopaedic Surgery
PROC: 0SRB0JZ Replacement of Left Hip Joint with Synthetic Substitute, Open Approach (ICD-10-PCS; principal; 2018-04-29)
DX: M16.12 Unilateral primary osteoarthritis, left hip (principal); H91.90 Unspecified hearing loss, unspecified ear; I25.10 Atherosclerotic heart disease of native coronary artery without angina pectoris; E78.5 Hyperlipidemia, unspecified; I10 Essential (primary) hypertension; I25.2 Old myocardial infarction; Z86.711 Personal history of pulmonary embolism; F41.9 Anxiety disorder, unspecified; E11.9 Type 2 diabetes mellitus without complications; D69.6 Thrombocytopenia, unspecified; I35.0 Nonrheumatic aortic (valve) stenosis; E87.6 Hypokalemia; N40.1 Benign prostatic hyperplasia with lower urinary tract symptoms; R32 Unspecified urinary incontinence; R33.8 Other retention of urine; K59.00 Constipation, unspecified; Z87.891 Personal history of nicotine dependence; Z79.899 Other long term (current) drug therapy; Z79.01 Long term (current) use of anticoagulants; Z79.82 Long term (current) use of aspirin; Z85.46 Personal history of malignant neoplasm of prostate; Z79.4 Long term (current) use of insulin
CPT/HCPCS: 01214; 36415; 51701; 51798; 73501-26-LT; 73501-LT; 80048; 80053; 82962; 83735; 85025; 85027; 85610; 85730; 86850; 86900; 86901; 93005; 94762; 97110-GP; 97116-GP; 97161-GP; 97165-GO; 97530-GO; 97530-GP; 97535-GO; A9270-GY; C1776; J0171; J0690; J0697; J1650; J1885; J2270; J2704; J3010; J3370; J3490; J7050; J7120

== ENCOUNTER 2018-06-03 14:14 | Emergency (ER) | payer MEDICARE, OTHER ==
--- NOTE | 2018-06-03 15:13 | EDM.PDOC ---
ED HPI GENERAL MEDICAL PROBLEM - General Chief Complaint: Gastrointestinal Problem Stated Complaint: RECTAL BLEEDING Time Seen by Provider: 06/03/18 15:11 Source of Information: Reports: Patient History Limitations: Reports: No Limitations - History of Present Illness INITIAL COMMENTS - FREE TEXT/NARRATIVE: Abraham is a very pleasant 87yo male presents ambulatory with his walker with complaints of rectal bleeding today. He states he felt mild abdominal pain last evening, had very large and forceful bowel movement, no blood or melena noted. He felt fine after that, slept well. No abd pain last night or today. Today he ate normal breakfast then felt the urge to have a bowel movement but was in public and did not want to use the restroom. He waited until he returned home, went to the bathroom, no pain or anything abnormal with this BM until he stood up and the toilet was bright red with blood. He was concerned and felt he should come to be evaluated. He denies any other associated symptoms such as abd pain, difficulty with urination, CP, dizziness, SOB palpitations. He is s/p Lt JENNA with Dr. Boo-- on coumadin and baby aspirin Onset: Sudden Duration: Day(s): Location: Reports: Abdomen - Related Data Allergies Allergy/AdvReac Type Severity Reaction Status Date / Time No Known Allergies Allergy Verified 06/03/18 14:40 Home Meds: Home Meds FA/Lycopene/Lut/MV,Ca,Iron,Min [Centrum] 1 tab PO DAILY 09/20/16 [History] Finasteride 5 mg PO DAILY 09/20/16 [History] Isosorbide Mononitrate [Imdur] 30 mg PO DAILY 09/20/16 [History] Metoprolol Succinate 12.5 mg PO DAILY 09/20/16 [History] Simvastatin [Zocor] 40 mg PO BEDTIME 09/20/16 [History] Aspirin [Halfprin] 81 mg PO DAILY 04/25/18 [History] Hydrocortisone [Hydrocortisone 2.5% Crm] 1 applic RECTAL DAILY PRN 04/25/18 [ History] Nitroglycerin [Nitrostat] 0.4 mg SL ASDIRECTED PRN 04/25/18 [History] Tamsulosin [Flomax] 0.4 mg PO DAILY 04/25/18 [History] traMADol [Ultram] 50 mg PO Q6H 04/25/18 [History] Acetaminophen/HYDROcodone [[place] 325-5 MG] 1 - 2 tab PO Q6H PRN #40 tablet 05/01 [Rx] Bisacodyl [Dulcolax] 5 mg PO DAILY PRN tablet 05/01/18 [Rx] Docusate Sodium [Colace] 100 mg PO BID cap 05/01/18 [Rx] Famotidine [Pepcid] 20 mg PO Q12H tablet 05/01/18 [Rx] Sennosides [Senna] 8.6 mg PO BID PRN tablet 05/01/18 [Rx] Warfarin Pharmacy to Dose [Pharmacy to Dose - Warfarin] 1 dose .XX ASDIRECTED each 05/01/18 [Rx] Past Medical History HEENT History: Reports: Hard of Hearing, Impaired Vision Other HEENT History: Bilateral impacted cerumen, epistaxis Cardiovascular History: Reports: CAD, High Cholesterol, [place] Respiratory History: Reports: PE Gastrointestinal History: Reports: Chronic Constipation, Hemorrhoids Other Gastrointestinal History: Abdominal pain, blood in stool, elevated bilirubin Genitourinary History: Reports: BPH, Other (See Below) Other Genitourinary History: Hematuria, urinary frequency Musculoskeletal History: Reports: Osteoarthritis Other Musculoskeletal History: Left hip pain, left hand pain, right rib pain Neurological History: Reports: Concussion Psychiatric History: Reports: Anxiety Endocrine/Metabolic History: Reports: Diabetes, Type II Hematologic History: Reports: Other (See Below) Other Hematologic History: Thrombocytopenia, blood clotting disorder Immunologic History: Reports: None Oncologic (Cancer) History: Reports: Prostate, Other (See Below) Other Oncologic History: Neoplasm of skin Dermatologic History: Reports: Other (See Below) Other Dermatologic History: Abrasion of face, actinic keratosis, rash - Infectious Disease History Infectious Disease History: Reports: Measles - Past Surgical History Head Surgeries/Procedures: Reports: None HEENT Surgical History: Reports: Cataract Surgery, Tonsillectomy Respiratory Surgical History: Reports: None GI Surgical History: Reports: Appendectomy Other GI Surgeries/Procedures: Abdominal surgery Endocrine Surgical History: Reports: None Neurological Surgical History: Reports: None Musculoskeletal Surgical History: Reports: Shoulder Replacement Other Musculoskeletal Surgeries/Procedures:: Right shoulder repair Oncologic Surgical History: Reports: None Dermatological Surgical History: Reports: None Social & Family History - Family History Family Medical History: Noncontributory Cardiac: Reports: High Cholesterol, [place] Endocrine/Metabolic: Reports: Diabetes, Type I Oncologic: Reports: Other (See Below) Other Oncologic Family History: 2 sisters have cancer, unknown type - Tobacco Use Smoking Status *Q: Never Smoker - Caffeine Use Caffeine Use: Reports: None - Recreational Drug Use Recreational Drug Use: No - Living Situation & Occupation Living situation: Reports: Other, Single ED ROS GENERAL - Review of Systems Review Of Systems: See Below Constitutional: Reports: No Symptoms. Denies: Fever, Chills, Weakness, Fatigue , Diaphoresis, Decreased Appetite HEENT: Reports: No Symptoms Respiratory: Reports: No Symptoms. Denies: Shortness of Breath, Cough Cardiovascular: Reports: No Symptoms. Denies: Chest Pain, Dyspnea on Exertion, Edema, Palpitations GI/Abdominal: Reports: Bloody Stool. Denies: Abdominal Pain, Black Stool, Diarrhea, Nausea, Vomiting : Reports: No Symptoms Neurological: Reports: No Symptoms ED EXAM, GI/ABD - Physical Exam Exam: See Below Exam Limited By: No Limitations General Appearance: Alert, WD/WN, No Apparent Distress, Other (pleasant and talkative) Eyes: Bilateral: EOMI Ears: Normal External Exam, Other (DEERING) Nose: Normal Inspection Throat/Mouth: Normal Inspection, Normal Lips, Normal Voice, No Airway Compromise Head: Atraumatic, Normocephalic Neck: Normal Inspection Respiratory/Chest: No Respiratory Distress, Lungs Clear, Normal Breath Sounds Cardiovascular: Regular Rate, Rhythm, No Edema GI/Abdominal Exam: Normal Bowel Sounds, Soft, Non-Tender. No: No Distention, Distended, Guarding, Rigid, Rebound, Mass (Male) Exam: Deferred Rectal (Males) Exam: Normal Exam, Normal Rectal Tone. No: Black Stool, Bloody Stool, Tenderness Back Exam: Normal Inspection Extremities: Normal Inspection, No Pedal Edema, Normal Capillary Refill Neurological: Alert, Oriented, CN II-XII Intact Psychiatric: Normal Affect, Normal Mood Skin Exam: Warm, Dry, Intact Course - Vital Signs Last Recorded V/S: Last Vital Signs Temp 98.1 F 06/03/18 14:30 Pulse 68 06/03/18 18:24 Resp 18 06/03/18 14:30 BP 103/68 06/03/18 18:24 Pulse Ox 93 L 06/03/18 14:30 - Orders/Labs/Meds Orders: Active Orders 24 hr Category Date Time Status UA W/MICROSCOPIC [URIN] Stat Lab 06/03/18 16:37 Ordered Labs: Laboratory Tests 06/03/18 06/03/18 Range/Units 16:41 16:41 WBC 6.69 (4.23-9.07) K/mm3 RBC 4.14 L (4.63-6.08) M/mm3 Hgb 13.2 L (13.7-17.5) gm/L Hct 40.7 (40.1-51.0) % MCV 98.3 H (79.0-92.2) fl MCH 31.9 (25.7-32.2) pg MCHC 32.4 (32.2-35.5) g/dl RDW Std Deviation 52.5 H (35.1-43.9) fL Plt Count 140 L (163-337) K/mm3 MPV 10.7 (9.4-12.3) fl Neut % (Auto) 66.0 (34.0-67.9) % Lymph % (Auto) 21.2 L (21.8-53.1) % [place] % (Auto) 10.8 (5.3-12.2) % Eos % (Auto) 1.3 (0.8-7.0) Baso % (Auto) 0.4 (0.1-1.2) % Neut # (Auto) 4.41 (1.78-5.38) K/mm3 Lymph # (Auto) 1.42 (1.32-3.57) K/mm3 [place] # (Auto) 0.72 (0.30-0.82) K/mm3 Eos # (Auto) 0.09 (0.04-0.54) K/mm3 Baso # (Auto) 0.03 (0.01-0.08) K/mm3 Sodium 139 (136-145) mEq/L Potassium 3.9 (3.5-5.1) mEq/L Chloride 103 (98-107) mEq/L Carbon Dioxide 28 (21-32) mEq/L Anion Gap 11.9 (5-15) BUN 19 H (7-18) mg/dL Creatinine 0.8 (0.7-1.3) mg/dL Est Cr Clr Drug Dosing 60.92 mL/min Estimated GFR (MDRD) > 60 (>60) mL/min BUN/Creatinine Ratio 23.8 H (14-18) Glucose 127 H (83-115) mg/dL Calcium 8.8 (8.5-10.1) mg/dL Total Bilirubin 0.7 (0.2-1.0) mg/dL AST 22 (15-37) U/L ALT 18 (16-63) U/L Alkaline Phosphatase 86 (46-116) U/L Total Protein 7.0 (6.4-8.2) g/dl Albumin 3.6 (3.4-5.0) g/dl Globulin 3.4 gm/dL Albumin/Globulin Ratio 1.1 (1-2) - Radiology Interpretation Free Text/Narrative:: 2 view abdominal xrays with nonspecific bowel gas pattern, no evidence of obstruction/air fluid levels. Will await Radiologists final read. - Re-Assessments/Exams Free Text/Narrative Re-Assessment/Exam: 06/03/18 18:02 Reviewed labs, minimally low hgb, abdominal xray with patient and friend/ senior dot net developer Adriane. See DC instructions for recommendations. Departure - Departure Time of Disposition: 18:02 Disposition: Home, Self-Care 01 Condition: Good Clinical Impression: Rectal bleeding Hemorrhoids Qualifiers: Hemorrhoid type: unspecified Qualified Code(s): K64.9 - Unspecified hemorrhoids - Discharge Information Instructions: High-Fiber Diet, Rectal Bleeding, Hemorrhoids, [id number] Referrals: Casi Rosario PA-C [Primary Care Provider] - Forms: ED Department Discharge Additional Instructions: Push fluids Continue with stool softner, increase to twice daily morning and evening. Recommend follow up with PCP, Terri Rosario in [place] within 5-7 days for recheck , she may elect to recheck your hemoglobin/lab work Discuss possible colonoscopy with Terri for further evaluation or certainly if recurrent blood is noted. If large amount of blood with bowel movements is noted again return to ER or clinic for evaluation. - My Orders Last 24 Hours: My Active Orders 06/03/18 16:37 UA W/MICROSCOPIC [URIN] Stat - Assessment/Plan Last 24 Hours: My Active Orders 06/03/18 16:37 UA W/MICROSCOPIC [URIN] Stat
--- NOTE | 2018-06-03 17:14 | CR ---
Abdomen: Supine and upright views of the abdomen were obtained. Comparison: No prior abdominal x-ray. Left hip prosthesis is noted. Joint space narrowing is seen within the superior right hip. Scattered gas within small bowel is seen within the right abdomen showing several air-fluid levels which can be seen normally. No free air is seen. Calcifications are seen within the pelvis which are compatible with phleboliths. Impression: 1. Findings which are felt to be incidental as noted above. Diagnostic code #2
[2018-06-03 18:25] VITALS: BP 103/68
== END 2018-06-03 18:20 | disposition home or self-care (01) ==
LOC: JD.ED 14:14
DX: K64.9 Unspecified hemorrhoids (principal); E78.00 Pure hypercholesterolemia, unspecified; I10 Essential (primary) hypertension; I25.2 Old myocardial infarction; E11.9 Type 2 diabetes mellitus without complications; Z79.82 Long term (current) use of aspirin; Z79.899 Other long term (current) drug therapy
CPT/HCPCS: 36415; 74019; 74019-26; 80053; 85025; 99284

== ENCOUNTER 2018-08-16 14:38 | Emergency (ER) | payer MEDICARE, OTHER ==
[2018-08-16 15:02] VITALS: BP 123/75
--- NOTE | 2018-08-16 15:42 | EDM.PDOC ---
ED HPI GENERAL MEDICAL PROBLEM - General Chief Complaint: General Stated Complaint: TOOTH WONT STOP BLEEDING Time Seen by Provider: 08/16/18 15:10 Source of Information: Reports: Patient, Family, RN Notes Reviewed - History of Present Illness INITIAL COMMENTS - FREE TEXT/NARRATIVE: 87-year-old male comes in with bleeding left upper gum status post tooth extraction about 25 hours ago. This was extracted at one of the local dental clinics yesterday. Family has struggled getting control of bleeding using gauze pads, teabags with continued oozing today. He is on Coumadin. That has been held yesterday and today. No major pain at this time. No history of other bleeding problems at this time. 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 ice. compression Left Lower Oral/Mouth Pain Score (Numeric/FACES): 1 - Related Data Allergies Allergy/AdvReac Type Severity Reaction Status Date / Time No Known Allergies Allergy Verified 06/03/18 14:40 Home Meds: Home Meds FA/Lycopene/Lut/MV,Ca,Iron,Min [Centrum] 1 tab PO DAILY 09/20/16 [History] Finasteride 5 mg PO DAILY 09/20/16 [History] Isosorbide Mononitrate [Imdur] 30 mg PO DAILY 09/20/16 [History] Metoprolol Succinate 12.5 mg PO DAILY 09/20/16 [History] Simvastatin [Zocor] 40 mg PO BEDTIME 09/20/16 [History] Aspirin [Halfprin] 81 mg PO DAILY 04/25/18 [History] Hydrocortisone [Hydrocortisone 2.5% Crm] 1 applic RECTAL DAILY PRN 04/25/18 [ History] Nitroglycerin [Nitrostat] 0.4 mg SL ASDIRECTED PRN 04/25/18 [History] Tamsulosin [Flomax] 0.4 mg PO DAILY 04/25/18 [History] traMADol [Ultram] 50 mg PO Q6H 04/25/18 [History] Acetaminophen/HYDROcodone [[place] 325-5 MG] 1 - 2 tab PO Q6H PRN #40 tablet 05/01 [Rx] Bisacodyl [Dulcolax] 5 mg PO DAILY PRN tablet 05/01/18 [Rx] Docusate Sodium [Colace] 100 mg PO BID cap 05/01/18 [Rx] Famotidine [Pepcid] 20 mg PO Q12H tablet 05/01/18 [Rx] Sennosides [Senna] 8.6 mg PO BID PRN tablet 05/01/18 [Rx] Warfarin Pharmacy to Dose [Pharmacy to Dose - Warfarin] 1 dose .XX ASDIRECTED each 05/01/18 [Rx] Past Medical History HEENT History: Reports: Hard of Hearing, Impaired Vision Other HEENT History: Bilateral impacted cerumen, epistaxis Cardiovascular History: Reports: CAD, High Cholesterol, [place] Respiratory History: Reports: PE Gastrointestinal History: Reports: Chronic Constipation, Hemorrhoids Other Gastrointestinal History: Abdominal pain, blood in stool, elevated bilirubin Genitourinary History: Reports: BPH, Other (See Below) Other Genitourinary History: Hematuria, urinary frequency Musculoskeletal History: Reports: Osteoarthritis Other Musculoskeletal History: Left hip pain, left hand pain, right rib pain Neurological History: Reports: Concussion Psychiatric History: Reports: Anxiety Endocrine/Metabolic History: Reports: Diabetes, Type II Hematologic History: Reports: Other (See Below) Other Hematologic History: Thrombocytopenia, blood clotting disorder Immunologic History: Reports: None Oncologic (Cancer) History: Reports: Prostate, Other (See Below) Other Oncologic History: Neoplasm of skin Dermatologic History: Reports: Other (See Below) Other Dermatologic History: Abrasion of face, actinic keratosis, rash - Infectious Disease History Infectious Disease History: Reports: Measles - Past Surgical History Head Surgeries/Procedures: Reports: None HEENT Surgical History: Reports: Cataract Surgery, Tonsillectomy Respiratory Surgical History: Reports: None GI Surgical History: Reports: Appendectomy Other GI Surgeries/Procedures: Abdominal surgery Endocrine Surgical History: Reports: None Neurological Surgical History: Reports: None Musculoskeletal Surgical History: Reports: Shoulder Replacement Other Musculoskeletal Surgeries/Procedures:: Right shoulder repair Oncologic Surgical History: Reports: None Dermatological Surgical History: Reports: None Social & Family History - Family History Family Medical History: Noncontributory Cardiac: Reports: High Cholesterol, CT Endocrine/Metabolic: Reports: Diabetes, Type I Oncologic: Reports: Other (See Below) Other Oncologic Family History: 2 sisters have cancer, unknown type - Caffeine Use Caffeine Use: Reports: None - Living Situation & Occupation Living situation: Reports: Other, Single ED ROS GENERAL - Review of Systems Review Of Systems: See Below Constitutional: Denies: Fever, Chills HEENT: Reports: Other (Bleeding left go home) Respiratory: Denies: Shortness of Breath Cardiovascular: Denies: Chest Pain GI/Abdominal: Denies: Abdominal Pain, Nausea, Vomiting Skin: Reports: Bruising (Occasional scattered). Denies: Rash Neurological: Denies: Numbness, Tingling, Trouble Speaking, Weakness ED EXAM, GENERAL - Physical Exam Exam: See Below General Appearance: Alert, No Apparent Distress Eye Exam: Bilateral Eye: PERRL Throat/Mouth: Other (Posterior molar extracted left upper gum, gauze removed his blood tinged with no active bleeding visible at this time) Neck: Supple Respiratory/Chest: No Respiratory Distress, Lungs Clear, Normal Breath Sounds Cardiovascular: Regular Rate, Rhythm Extremities: Normal Inspection Skin Exam: Warm, Dry, Normal Color Course - Vital Signs Last Recorded V/S: Last Vital Signs Temp 98.0 F 08/16/18 14:54 Pulse 70 08/16/18 14:54 Resp 16 08/16/18 14:54 BP 123/75 08/16/18 14:54 Pulse Ox 94 L 08/16/18 14:54 - Orders/Labs/Meds Orders: Active Orders 24 hr Category Date Time Status Tranexamic Acid [Cyklokapron] Med 08/16/18 15:30 Active 1,000 mg TOP ONETIME Medication Orders Tranexamic Acid (Cyklokapron) 1,000 mg TOP ONETIME UMM Last Admin: 08/16/18 15:36 Dose: 1,000 mg Labs: Laboratory Tests 08/16/18 08/16/18 Range/Units 15:34 15:34 WBC 6.35 (4.23-9.07) K/mm3 RBC 4.36 L (4.63-6.08) M/mm3 Hgb 13.7 (13.7-17.5) gm/L Hct 41.3 (40.1-51.0) % MCV 94.7 H (79.0-92.2) fl MCH 31.4 (25.7-32.2) pg MCHC 33.2 (32.2-35.5) g/dl RDW Std Deviation 51.3 H (35.1-43.9) fL Plt Count 160 L (163-337) K/mm3 MPV 10.8 (9.4-12.3) fl Neut % (Auto) 61.0 (34.0-67.9) % Lymph % (Auto) 25.7 (21.8-53.1) % [place] % (Auto) 11.3 (5.3-12.2) % Eos % (Auto) 1.7 (0.8-7.0) Baso % (Auto) 0.3 (0.1-1.2) % Neut # (Auto) 3.87 (1.78-5.38) K/mm3 Lymph # (Auto) 1.63 (1.32-3.57) K/mm3 [place] # (Auto) 0.72 (0.30-0.82) K/mm3 Eos # (Auto) 0.11 (0.04-0.54) K/mm3 Baso # (Auto) 0.02 (0.01-0.08) K/mm3 PT 16.9 H (9.5-12.1) SECONDS INR 1.56 Meds: Medications Generic Name Dose Route Start Last Admin Trade Name Freq PRN Reason Stop Dose Admin Tranexamic Acid 1,000 mg 08/16/18 15:30 08/16/18 15:36 Cyklokapron TOP 1,000 mg ONETIME UMM Administration Departure - Departure Time of Disposition: 16:37 Disposition: Home, Self-Care 01 Condition: Fair Clinical Impression: Bleeding - Discharge Information Referrals: Casi Rosario PA-C [Primary Care Provider] - Forms: ED Department Discharge Additional Instructions: Continue with pressure with medication-soaked gauze on the way back to [place], if there is further bleeding this evening you can continue to use gauze pads or teabags to apply pressure to area of tooth extraction. It is not unusual to have very mild bleeding for a day or 2 after dental extraction. Return to ED if this becomes severe. Do not take any further Coumadin today or tomorrow. You may resume Coumadin Sunday and than take as previously prescribed. - My Orders Last 24 Hours: My Active Orders 08/16/18 15:30 Tranexamic Acid [Cyklokapron] 1,000 mg TOP ONETIME - Assessment/Plan Last 24 Hours: My Active Orders 08/16/18 15:30 Tranexamic Acid [Cyklokapron] 1,000 mg TOP ONETIME
== END 2018-08-16 16:49 | disposition home or self-care (01) ==
LOC: JD.ED 14:38
DX: K91.840 Postprocedural hemorrhage of a digestive system organ or structure following a digestive system procedure (principal); E11.9 Type 2 diabetes mellitus without complications; Z79.899 Other long term (current) drug therapy
CPT/HCPCS: 36415; 85025; 85610; 99283

== ENCOUNTER 2019-09-13 14:25 | Emergency (ER) | payer MEDICARE, OTHER ==
[2019-09-13 14:33] VITALS: BP 118/57; PULSE 72
--- NOTE | 2019-09-13 14:58 | EDM.PDOC ---
ED HPI GENERAL MEDICAL PROBLEM - General Chief Complaint: Lower Extremity Injury/Pain Stated Complaint: [facility] Time Seen by Provider: 09/13/19 14:53 Source of Information: Reports: Patient, RN Notes Reviewed - History of Present Illness INITIAL COMMENTS - FREE TEXT/NARRATIVE: 88-year-old male comes in with left knee pain. He states he was "getting a charley horse of his left posterior leg and then when he stretched his leg he had onset of knee pain. All or other known injury to the knee. 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 That has been stopped for an upcoming dental procedure early next week. He currently has no pain at rest but does have pain with motion of the knee. He does have history of prior left hip replacement that was done about 16 months ago. No current hip pelvic or back discomfort at this time. No chest pain or difficulty breathing. He lives at the [facility]. He normally does ambulate with a walker. Left Knee Pain Score (Numeric/FACES): 6 - Related Data Allergies Allergy/AdvReac Type Severity Reaction Status Date / Time No Known Allergies Allergy Verified 09/13/19 14:33 Home Meds: Home Meds FA/Lycopene/Lut/MV,Ca,Iron,Min [Centrum] 1 tab PO DAILY 09/20/16 [History] Finasteride 5 mg PO DAILY 09/20/16 [History] Isosorbide Mononitrate [Imdur] 30 mg PO DAILY 09/20/16 [History] Metoprolol Succinate 12.5 mg PO DAILY 09/20/16 [History] Simvastatin [Zocor] 40 mg PO BEDTIME 09/20/16 [History] Aspirin [Halfprin] 81 mg PO DAILY 04/25/18 [History] Nitroglycerin [Nitrostat] 0.4 mg SL ASDIRECTED PRN 04/25/18 [History] Tamsulosin [Flomax] 0.4 mg PO DAILY 04/25/18 [History] Acetaminophen [Tylenol Extra Strength] 500 mg PO Q4H PRN 09/13/19 [History] Amoxicillin 2,000 mg PO ASDIRECTED 09/13/19 [History] Oxybutynin Chloride [Ditropan Xl] 10 mg PO QPM 09/13/19 [History] Warfarin [Coumadin] 5 mg PO BEDTIME 09/13/19 [History] Past Medical History HEENT History: Reports: Hard of Hearing, Impaired Vision Other HEENT History: Bilateral impacted cerumen, epistaxis Cardiovascular History: Reports: CAD, High Cholesterol, [place] Respiratory History: Reports: PE Gastrointestinal History: Reports: Chronic Constipation, Hemorrhoids Other Gastrointestinal History: Abdominal pain, blood in stool, elevated bilirubin Genitourinary History: Reports: BPH, Other (See Below) Other Genitourinary History: Hematuria, urinary frequency Musculoskeletal History: Reports: Osteoarthritis Other Musculoskeletal History: Left hip pain, left hand pain, right rib pain Neurological History: Reports: Concussion Psychiatric History: Reports: Anxiety Endocrine/Metabolic History: Reports: Diabetes, Type II Hematologic History: Reports: Other (See Below) Other Hematologic History: Thrombocytopenia, blood clotting disorder Immunologic History: Reports: None Oncologic (Cancer) History: Reports: Prostate, Other (See Below) Other Oncologic History: Neoplasm of skin Dermatologic History: Reports: Other (See Below) Other Dermatologic History: Abrasion of face, actinic keratosis, rash - Infectious Disease History Infectious Disease History: Reports: Measles - Past Surgical History Head Surgeries/Procedures: Reports: None HEENT Surgical History: Reports: Cataract Surgery, Tonsillectomy Respiratory Surgical History: Reports: None GI Surgical History: Reports: Appendectomy Other GI Surgeries/Procedures: part of colon removed Endocrine Surgical History: Reports: None Neurological Surgical History: Reports: None Musculoskeletal Surgical History: Reports: Hip Replacement, Shoulder Replacement Other Musculoskeletal Surgeries/Procedures:: Right shoulder repair Oncologic Surgical History: Reports: None Dermatological Surgical History: Reports: None Social & Family History - Family History Family Medical History: Noncontributory Cardiac: Reports: High Cholesterol, [place] Endocrine/Metabolic: Reports: Diabetes, Type I Oncologic: Reports: Other (See Below) Other Oncologic Family History: 2 sisters have cancer, unknown type - Tobacco Use Smoking Status *Q: Former Smoker Used Tobacco, but Quit: Yes Month/Year Tobacco Last Used: 1979 - Caffeine Use Caffeine Use: Reports: None - Recreational Drug Use Recreational Drug Use: No - Living Situation & Occupation Living situation: Reports: Other, Single Review of Systems - Review of Systems Review Of Systems: See Below Constitutional: Denies: Chills, Fever Mouth/Throat: Reports: No Symptoms Respiratory: Denies: Shortness of Breath Cardiovascular: Denies: Chest Pain GI/Abdominal: Denies: Abdominal Pain, Nausea, Vomiting Musculoskeletal: Reports: Joint Pain (Left knee) Skin: Reports: No Symptoms. Denies: Erythema Neurological: Denies: Numbness, Tingling, Weakness ED EXAM, GENERAL - Physical Exam Exam: See Below General Appearance: Alert, No Apparent Distress Throat/Mouth: Normal Inspection Head: Atraumatic. No: Facial Swelling Neck: Supple, Full Range of Motion Respiratory/Chest: No Respiratory Distress, Lungs Clear, Normal Breath Sounds. No: Respiratory Distress, Rhonchi Cardiovascular: Regular Rate, Rhythm Extremities: Joint Swelling (There is mild swelling of the left knee and possible very mild effusion. He is mildly tender medial aspect. Knee is otherwise nontender. No warmth or erythema. Good passive range of motion but pain with active flexion. Joint is stable at this time. Lower leg is nontender. No lower leg warmth erythema or swelling.) Neurological: Alert, No Motor/Sensory Deficits Skin Exam: Warm, Dry, Normal Color Course - Vital Signs Last Recorded V/S: Last Vital Signs Temp 98.0 F 09/13/19 14:30 Pulse 72 09/13/19 14:30 Resp 19 09/13/19 14:30 BP 118/57 L 09/13/19 14:30 Pulse Ox 90 L 09/13/19 14:30 - Orders/Labs/Meds Labs: Laboratory Tests 09/13/19 09/13/19 Range/Units 15:25 15:25 WBC 9.08 H (4.23-9.07) K/mm3 RBC 4.11 L (4.63-6.08) M/mm3 Hgb 13.6 L (13.7-17.5) gm/dl Hct 40.5 (40.1-51.0) % MCV 98.5 H (79.0-92.2) fl MCH 33.1 H (25.7-32.2) pg MCHC 33.6 (32.2-35.5) g/dl RDW Std Deviation 50.3 H (35.1-43.9) fL Plt Count 155 L (163-337) K/mm3 MPV 10.9 (9.4-12.3) fl Neut % (Auto) 66.2 (34.0-67.9) % Lymph % (Auto) 19.7 L (21.8-53.1) % [place] % (Auto) 13.2 H (5.3-12.2) % Eos % (Auto) 0.4 L (0.8-7.0) Baso % (Auto) 0.3 (0.1-1.2) % Neut # (Auto) 6.00 H (1.78-5.38) K/mm3 Lymph # (Auto) 1.79 (1.32-3.57) K/mm3 [place] # (Auto) 1.20 H (0.30-0.82) K/mm3 Eos # (Auto) 0.04 (0.04-0.54) K/mm3 Baso # (Auto) 0.03 (0.01-0.08) K/mm3 PT 18.9 H (9.7-12.0) SECONDS INR 1.79 Meds: Medications Discontinued Medications Generic Name Dose Route Start Last Admin Trade Name Freq PRN Reason Stop Dose Admin Hydrocodone Bitart/Acetaminophen 1 tab 09/13/19 15:07 09/13/19 15:33 Norman 325-5 Mg PO 09/13/19 15:08 1 tab ONETIME ONE Administration Hydrocodone Bitart/Acetaminophen 1 tab 09/13/19 17:19 09/13/19 17:38 Norman 325-5 Mg PO 09/13/19 17:20 1 tab ONETIME ONE Administration - Re-Assessments/Exams Free Text/Narrative Re-Assessment/Exam: 09/13/19 17:18 X-rays of knee show some degenerative changes but no acute fracture. They strapped the knee. We did give him hydrocodone about an hour ago and now he is able to get up and walk with his walker with some discomfort but doing quite well on his own. Discharge instructions as documented. Departure - Departure Time of Disposition: 17:20 Disposition: Home, Self-Care 01 Condition: Fair Clinical Impression: Strain of knee and leg, left - Discharge Information Referrals: Casi Rosario PA-C [Primary Care Provider] - Forms: ED Department Discharge Additional Instructions: Delonte wrap, ice packs and elevation as needed for swelling. Tylenol 500 mg 3-4 times daily if needed for pain. We have sent one tablet hydrocodone 03/28/25 home with patient. One half tablet tonight at bedtime if needed for severe discomfort and also may take one half tablet morning if needed for severe discomfort or 8-12 hours thereafter if still available. Follow-up with Gaby at the [facility] if not much better within 3-4 days or if symptoms worsening in any way.
[2019-09-13] MEDS ORDERED: Acetaminophen/HYDROcodone 325-5 MG Tab PO ONE ×2 (15:07→17:19)
--- NOTE | 2019-09-13 16:09 | CR ---
Left knee: 4 views left knee were obtained. Comparison: No previous knee exam. Moderate to severe medial joint space narrowing is seen. Lateral joint space is preserved. Chondrocalcinosis is noted within the medial meniscus. Osteophytes are noted off medial joint as well as off the lateral tibial margin. Vascular calcification is noted. Bony structures are osteopenic. Nothing acute is seen. Impression: 1. Degenerative change, osteopenia and vascular calcification. Diagnostic code #2
== END 2019-09-13 17:37 | disposition home or self-care (01) ==
LOC: JD.ED 14:25
DX: S86.912A Strain of unspecified muscle(s) and tendon(s) at lower leg level, left leg, initial encounter (principal); I25.2 Old myocardial infarction; I25.10 Atherosclerotic heart disease of native coronary artery without angina pectoris; N40.0 Benign prostatic hyperplasia without lower urinary tract symptoms; E11.9 Type 2 diabetes mellitus without complications; Z79.82 Long term (current) use of aspirin; Z79.01 Long term (current) use of anticoagulants; Z79.899 Other long term (current) drug therapy; Z87.891 Personal history of nicotine dependence; X50.1XXA Overexertion from prolonged static or awkward postures, initial encounter; Y93.89 Activity, other specified
CPT/HCPCS: 36415; 73564; 85025; 85610; 99283; A9270

== ENCOUNTER 2019-10-24 07:01 | Emergency (ER) | payer MEDICARE, OTHER ==
[2019-10-24 07:14] VITALS: BP 134/70; PULSE 66
--- NOTE | 2019-10-24 07:20 | EDM.PDOC ---
ED HPI GENERAL MEDICAL PROBLEM - General Chief Complaint: Trauma Stated Complaint: [facility] Time Seen by Provider: 10/24/19 07:06 Source of Information: Reports: Patient, EMS History Limitations: Reports: No Limitations - History of Present Illness INITIAL COMMENTS - FREE TEXT/NARRATIVE: 88-year-old male who lives in the [facility] will be start coated presents to the ED after feeling that his left arm and hand were not obeying his brain this morning. Peck like his left arm was weak and dysfunctional. When he tried to get up and walk he states that he did lose his balance and fall injuring his left shoulder. Denies hitting his head. It isn't Coumadin 5 mg once daily he is unsure why he is on this medication. Denies any other significant pain or injury. Has a history of hypertension unstable angina cardiac arrhythmias and obstructive uropathy. Denies fever or chills. Fell in the kitchen of his home. A mid morning which he places around 3:00 this morning. Onset: Today Onset Date: 10/24/19 Onset Time: 04:00 Duration: Hour(s):, Constant. No: Improving, Recurring Location: Reports: Upper Extremity, Left (Left upper extremity weakness difficult with hand movement to correlate what he wants it to do.). Denies: Chest, Abdomen, Back, Pelvis, Lower Extremity, Left Quality: Reports: Other (Denies any numbness or tingling in the left hand or arm.) Severity: Moderate Improves with: Reports: None Worsens with: Reports: None Context: Denies: Activity, Exercise, Lifting, Sick Contact, Trauma, Other (It was there when he woke up around 0400 hrs. this morning.) Associated Symptoms: Denies: Diaphoresis, Fever/Chills ( Was finally went to bed this morning last night.), Headaches, Loss of Appetite, Malaise, Nausea/ Vomiting, Rash, Seizure, Shortness of Breath, Syncope Treatments [employer]: Reports: Other (see below) (None.) - Related Data Allergies Allergy/AdvReac Type Severity Reaction Status Date / Time No Known Allergies Allergy Verified 10/24/19 07:13 Home Meds: Home Meds FA/Lycopene/Lut/MV,Ca,Iron,Min [Centrum] 1 tab PO DAILY 09/20/16 [History] Finasteride 5 mg PO DAILY 09/20/16 [History] Isosorbide Mononitrate [Imdur] 30 mg PO DAILY 09/20/16 [History] Simvastatin [Zocor] 40 mg PO BEDTIME 09/20/16 [History] Aspirin [Halfprin] 81 mg PO DAILY 04/25/18 [History] Nitroglycerin [Nitrostat] 0.4 mg SL ASDIRECTED PRN 04/25/18 [History] Tamsulosin [Flomax] 0.4 mg PO DAILY 04/25/18 [History] Acetaminophen [Tylenol Extra Strength] 500 mg PO Q4H PRN 09/13/19 [History] Amoxicillin 2,000 mg PO ASDIRECTED 09/13/19 [History] Warfarin [Coumadin] 5 mg PO ASDIRECTED 09/13/19 [History] Cefdinir 300 mg PO BID 10/24/19 [History] Metoprolol Succinate 12.5 mg PO DAILY 10/24/19 [History] Solifenacin [Vesicare] 5 mg PO DAILY 10/24/19 [History] Warfarin [Coumadin] 2.5 mg PO ASDIRECTED 10/24/19 [History] Past Medical History HEENT History: Reports: Hard of Hearing, Impaired Vision Other HEENT History: Bilateral impacted cerumen, epistaxis Cardiovascular History: Reports: CAD, High Cholesterol, [place], SOB on Exertion Respiratory History: Reports: COPD (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 Nocturia usually 2-3 times nightly Musculoskeletal History: Reports: Osteoarthritis Other Musculoskeletal History: Left hip pain, left hand pain, right rib pain Neurological History: Reports: Concussion Psychiatric History: Reports: Anxiety Endocrine/Metabolic History: Reports: Diabetes, Type II (Controlled with diet and medication.) Hematologic History: Reports: Other (See Below) Other Hematologic History: Thrombocytopenia, blood clotting disorder. On Coumadin because of this. Immunologic History: Reports: None Oncologic (Cancer) History: Reports: Prostate, Other (See Below) Other Oncologic History: Neoplasm of skin Dermatologic History: Reports: Other (See Below) Other Dermatologic History: Abrasion of face, actinic keratosis, rash - Infectious Disease History Infectious Disease History: Reports: Measles - Past Surgical History Head Surgeries/Procedures: Reports: None HEENT Surgical History: Reports: Cataract Surgery, Tonsillectomy Respiratory Surgical History: Reports: None GI Surgical History: Reports: Appendectomy Other GI Surgeries/Procedures: part of colon removed Endocrine Surgical History: Reports: None Neurological Surgical History: Reports: None Musculoskeletal Surgical History: Reports: Hip Replacement, Shoulder Replacement Other Musculoskeletal Surgeries/Procedures:: Right shoulder repair Oncologic Surgical History: Reports: None Dermatological Surgical History: Reports: None Social & Family History - Family History Family Medical History: Noncontributory Cardiac: Reports: High Cholesterol, [place] Endocrine/Metabolic: Reports: Diabetes, Type I Oncologic: Reports: Other (See Below) Other Oncologic Family History: 2 sisters have cancer, unknown type - Caffeine Use Caffeine Use: Reports: None - Living Situation & Occupation Living situation: Reports: Other, Single Review of Systems - Review of Systems Review Of Systems: See Below Constitutional: Reports: Weakness. Denies: Chills, Diaphoresis, Fever, Other Eyes: Reports: Decreased Acuity. Denies: No Symptoms, Blindness, Blurred Vision , Drainage, Foreign Body Sensation, Photophobia, Previous Injury, Tunnel Vision , Vision Change, Contact Lenses Ears: Reports: Dizziness. Denies: Purulent Discharge, Serosanguinous Discharge Nose: Reports: No Symptoms Mouth/Throat: Reports: No Symptoms, Other (Dry mouth) Respiratory: Reports: Shortness of Breath. Denies: Wheezing, Pleuritic Chest Pain, Cough, Sputum, Hemoptysis, Other Cardiovascular: Reports: Irregular Heart Rate. Denies: Chest Pain, Edema, Lightheadedness, Palpitations, Syncope, Other GI/Abdominal: Reports: No Symptoms, Abdominal Pain, Bloody Stool, Constipation. Denies: Decreased Appetite, Diarrhea, Hematemesis, Nausea, Vomiting Genitourinary: Reports: Other (Urinary frequency with nocturia 2 don't have significant BPH.) Musculoskeletal: Reports: Back Pain, Joint Pain (D sips lower back arms and shoulders at times) Skin: Reports: Bruising (Bruises fairly easily due to being on Coumadin.) Neurological: Reports: No Symptoms, Difficulty Walking, Weakness (Patient is left arm and hand). Denies: Confusion, Dizziness, Headache, Numbness, Paresthesia ( since awakening this morning is 400 hours), Pre-Existing Deficit, Seizure, Syncope, Tingling, Tremors, Trouble Speaking, Change in Speech, Gait Disturbance, Other Psychiatric: Denies: Confusion, Depression, Mood Lability, Anxiety, Agitation, Cravings, Hallucinations, Homicidal Ideation, Hallucinations (Auditory), Hallucinations (Visual) ED EXAM, GENERAL - Physical Exam Exam: See Below Exam Limited By: No Limitations General Appearance: Alert, WD/WN, No Apparent Distress Eye Exam: Bilateral Eye: Normal Inspection, PERRL Ears: Normal External Exam Throat/Mouth: Normal Inspection, Normal Lips, Normal Teeth, Normal Oropharynx Head: Atraumatic, Normocephalic Neck: Normal Inspection, Supple, Non-Tender, Full Range of Motion. No: Lymphadenopathy (L), Lymphadenopathy (R) Respiratory/Chest: No Respiratory Distress, Lungs Clear, Normal Breath Sounds, No Accessory Muscle Use Cardiovascular: Normal Peripheral Pulses, Regular Rate, Rhythm, No Edema, No Gallop, No Murmur, No Rub Peripheral Pulses: 1+: Posterior Tibial (L), Posterior Tibial (R), Dorsalis Pedis (L), Dorsalis Pedis (R) GI/Abdominal: Normal Bowel Sounds, Soft, Non-Tender, No Organomegaly, No Abnormal Bruit, No Mass, Pelvis Stable, Other (Well-healed midline infraumbilical scar barely had bowel resection for cancer of the colon. Primary anastomosis greater than 10 years ago) Back Exam: Normal Inspection, Full Range of Motion, Decreased Range of Motion, Other (Has a 10 cm linear laceration which is open in one area about an inch and will require Steri-Strips being from the posterior aspect of his shoulder traveling along the latissimus dorsi muscle area. Appears that he has caught on something quite sharp. A but his last tetanus toxoid.). No: CVA Tenderness (L) , CVA Tenderness (R) Extremities: Normal Inspection (Stiff and sore try to get him to set up in bed due to pain in his back.), Normal Range of Motion, Non-Tender, No Pedal Edema, Normal Capillary Refill Neurological: Alert, Oriented, CN II-XII Intact, Normal Cognition, Other (Does have decreased motor power and tone rated 4-5 in his left upper extremity. There is a positive pronator drift with the left arm drifting slowly down to his leg over. About 7 seconds.). No: Normal Reflexes (He has decreased ankle jerks bilaterally. 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 Initial poor R-wave progression.) ST-T: Other (T-wave flattening primarily aVF.) EKG Interpretation Comments: No signs of acute ischemia. Borderline ECG Course - Vital Signs Last Recorded V/S: Last Vital Signs Temp 36.2 C 10/24/19 07:08 Pulse 66 10/24/19 07:08 Resp 18 10/24/19 07:08 BP 134/70 10/24/19 07:08 Pulse Ox 93 L 10/24/19 07:08 - Orders/Labs/Meds Orders: Active Orders 24 hr Category Date Time Status EKG Documentation Completion [RC] STAT Care 10/24/19 07:16 Active Vaccines to be Administered [RC] PER UNIT ROUTINE Care 10/24/19 08:12 Active CBC WITH AUTO DIFF [HEME] AM Lab 10/25/19 05:11 Ordered CBC WITH AUTO DIFF [HEME] AM Lab 10/26/19 05:11 Ordered CBC WITH AUTO DIFF [HEME] AM Lab 10/27/19 05:11 Ordered CULTURE BLOOD [BC] Stat Lab 10/24/19 07:50 Received CULTURE BLOOD [BC] Stat Lab 10/24/19 08:05 Received Dextrose 5%-0.9% NaCl [Dextrose 5%-Normal Saline] 1,000 Med 10/24/19 07:30 Active ml IV ASDIRECTED Blood Culture x2 Reflex Set [OM.PC] Stat Oth 10/24/19 07:17 Ordered Medication Orders Dextrose/Sodium Chloride (Dextrose 5%-Normal Saline) 1,000 mls @ 100 mls/hr IV ASDIRECTED UMM Last Admin: 10/24/19 07:52 Dose: 100 mls/hr Labs: Laboratory Tests 10/24/19 10/24/19 10/24/19 Range/Units 07:29 07:50 07:50 WBC (4.23-9.07) K/mm3 RBC (4.63-6.08) M/mm3 Hgb (13.7-17.5) gm/dl Hct (40.1-51.0) % MCV (79.0-92.2) fl MCH (25.7-32.2) pg MCHC (32.2-35.5) g/dl RDW Std Deviation (35.1-43.9) fL Plt Count (163-337) K/mm3 MPV (9.4-12.3) fl Neut % (Auto) (34.0-67.9) % Lymph % (Auto) (21.8-53.1) % [place] % (Auto) (5.3-12.2) % Eos % (Auto) (0.8-7.0) Baso % (Auto) (0.1-1.2) % Neut # (Auto) (1.78-5.38) K/mm3 Lymph # (Auto) (1.32-3.57) K/mm3 [place] # (Auto) (0.30-0.82) K/mm3 Eos # (Auto) (0.04-0.54) K/mm3 Baso # (Auto) (0.01-0.08) K/mm3 PT 16.5 H (9.7-12.0) SECONDS INR 1.55 APTT 31 (22-31) SECONDS Sodium 137 (136-145) mEq/L Potassium 4.0 (3.5-5.1) mEq/L Chloride 99 (98-107) mEq/L Carbon Dioxide 28 (21-32) mEq/L Anion Gap 14.0 (5-15) BUN 17 (7-18) mg/dL Creatinine 0.8 (0.7-1.3) mg/dL Est Cr Clr Drug Dosing 61.97 mL/min Estimated GFR (MDRD) > 60 (>60) mL/min BUN/Creatinine Ratio 21.3 H (14-18) Glucose 137 H (83-115) mg/dL Calcium 8.9 (8.5-10.1) mg/dL Magnesium 2.3 (1.8-2.4) mg/dl Total Bilirubin 0.9 (0.2-1.0) mg/dL AST 19 (15-37) U/L ALT 34 (16-63) U/L Alkaline Phosphatase 80 (46-116) U/L Creatine Kinase 64 (39-308) U/L CK-MB (CK-2) 0.7 (0-3.6) ng/ml Troponin I < 0.017 (0.00-0.056) ng/mL C-Reactive Protein 4.4 H* (<1.0) mg/dL NT-Pro-B Natriuret Pep (0-450) pg/mL Total Protein 8.0 (6.4-8.2) g/dl Albumin 3.3 L (3.4-5.0) g/dl Globulin 4.7 gm/dL Albumin/Globulin Ratio 0.7 L (1-2) Urine Color Yellow (Yellow) Urine Appearance Clear (Clear) Urine pH 6.5 (5.0-8.0) Ur Specific [place] 1.020 (1.005-1.030) Urine Protein Negative (Negative) Urine Glucose (UA) Negative (Negative) Urine Ketones Negative (Negative) Urine Occult Blood Negative (Negative) Urine Nitrite Negative (Negative) Urine Bilirubin Negative (Negative) Urine Urobilinogen 0.2 (0.2-1.0) Ur Leukocyte Esterase Negative (Negative) Urine RBC 0-5 (0-5) /hpf Urine WBC Not seen (0-5) /hpf Ur Epithelial Cells Not seen (0-5) /hpf Urine Bacteria Not seen (FEW) /hpf Urine Mucus Not seen (FEW) /hpf 10/24/19 10/24/19 Range/Units 07:50 07:50 WBC 7.96 (4.23-9.07) K/mm3 RBC 4.19 L (4.63-6.08) M/mm3 Hgb 13.4 L (13.7-17.5) gm/dl Hct 40.8 (40.1-51.0) % MCV 97.4 H (79.0-92.2) fl MCH 32.0 (25.7-32.2) pg MCHC 32.8 (32.2-35.5) g/dl RDW Std Deviation 48.6 H (35.1-43.9) fL Plt Count 248 D (163-337) K/mm3 MPV 10.7 (9.4-12.3) fl Neut % (Auto) 69.2 H (34.0-67.9) % Lymph % (Auto) 18.2 L (21.8-53.1) % [place] % (Auto) 9.9 (5.3-12.2) % Eos % (Auto) 1.8 (0.8-7.0) Baso % (Auto) 0.3 (0.1-1.2) % Neut # (Auto) 5.51 H (1.78-5.38) K/mm3 Lymph # (Auto) 1.45 (1.32-3.57) K/mm3 [place] # (Auto) 0.79 (0.30-0.82) K/mm3 Eos # (Auto) 0.14 (0.04-0.54) K/mm3 Baso # (Auto) 0.02 (0.01-0.08) K/mm3 PT (9.7-12.0) SECONDS INR APTT (22-31) SECONDS Sodium (136-145) mEq/L Potassium (3.5-5.1) mEq/L Chloride (98-107) mEq/L Carbon Dioxide (21-32) mEq/L Anion Gap (5-15) BUN (7-18) mg/dL Creatinine (0.7-1.3) mg/dL Est Cr Clr Drug Dosing mL/min Estimated GFR (MDRD) (>60) mL/min BUN/Creatinine Ratio (14-18) Glucose (83-115) mg/dL Calcium (8.5-10.1) mg/dL Magnesium (1.8-2.4) mg/dl Total Bilirubin (0.2-1.0) mg/dL AST (15-37) U/L ALT (16-63) U/L Alkaline Phosphatase (46-116) U/L Creatine Kinase (39-308) U/L CK-MB (CK-2) (0-3.6) ng/ml Troponin I (0.00-0.056) ng/mL C-Reactive Protein (<1.0) mg/dL NT-Pro-B Natriuret Pep 136 (0-450) pg/mL Total Protein (6.4-8.2) g/dl Albumin (3.4-5.0) g/dl Globulin gm/dL Albumin/Globulin Ratio (1-2) Urine Color (Yellow) Urine Appearance (Clear) Urine pH (5.0-8.0) Ur Specific [place] (1.005-1.030) Urine Protein (Negative) Urine Glucose (UA) (Negative) Urine Ketones (Negative) Urine Occult Blood (Negative) Urine Nitrite (Negative) Urine Bilirubin (Negative) Urine Urobilinogen (0.2-1.0) Ur Leukocyte Esterase (Negative) Urine RBC (0-5) /hpf Urine WBC (0-5) /hpf Ur Epithelial Cells (0-5) /hpf Urine Bacteria (FEW) /hpf Urine Mucus (FEW) /hpf Meds: Medications Generic Name Dose Route Start Last Admin Trade Name Freq PRN Reason Stop Dose Admin Dextrose/Sodium Chloride 1,000 mls @ 100 mls/hr 10/24/19 07:30 10/24/19 07:52 Dextrose 5%-Normal Saline IV 100 mls/hr ASDIRECTED UMM Administration Discontinued Medications Generic Name Dose Route Start Last Admin Trade Name Freq PRN Reason Stop Dose Admin Diphtheria/Tetanus/Acell Pertussis 0.5 ml 10/24/19 08:11 10/24/19 08:25 Adacel IM 10/24/19 08:12 0.5 ml .ONCE ONE Administration - Radiology Interpretation Free Text/Narrative:: 88-year-old male presents the ED with symptoms of left hand and arm weakness that appeared quite mild at initial time of assessment. Symptoms developed sometime during the night. Robe were presnet when he woke up at 0400 hrs. this morning placing him at the upper limits of normal for accepting thrombolytic therapy , At this time it appears to have affected mostly his left arm affected the left leg was prepped very minimally affected. As soon as he gets back from CT scan we will get him up for road testing and see how well his balance walking is. He has no facial nerve involvement. He has also also fallen and contused the posterior lateral aspect of his left shoulder Finally CT head CT cervical spine x-ray of the left shoulder. Routine labs including ECG and chest x-ray - Re-Assessments/Exams Free Text/Narrative Re-Assessment/Exam: 10/24/19 07:45 CT of his brain reveals an old large subdural hematoma which appears chronic over the right-sided convex [place]. This causes significant mass effect upon the underlying brain with minimal midline shift. No acute hemorrhage is seen into this dural subdural hematoma this is an interval change from previous exam. Mild diminished density is noted within portions of the periventricular white matter compare with small vessel ischemic demyelination change. Mild generalized atrophy is seen. Atherosclerotic calcination is seen within the carotid siphon and within the vertebral vessels. Retention cysts are noted within both maxillary sinuses. No complete opacification of the within the left sphenoid sinus. Mild mucosal thickening is noted within the ethmoids and right frontal sinuses. 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 This finding is interval change from previous exam. involving the right parietal and mild temporal brain. There is no intracerebral infarct. There is been no midline shift. No mass effect. Age-appropriate degenerative changes appreciated in both basal ganglia with small vessel perivascular changes. No evidence of any other lacunar infarcts. Therefore it appears a stroke has occurred greater than 24 hours ago to show up so well on CT head. I have no CT exams of the head to compare to. X-ray of the left shoulder shows degenerative changes of the acromial clinical joint and glenohumeral joint no fractures. Chest x-ray reveals evidence of COPD with increased blebs throughout both lung emmanuel no pleural effusion is no signs of significant vascular congestion pattern. Cardiac silhouette upper limits of normal. After labs are completed we' ll get him up walking and see how he does with his balance. BP remains 134/70 he remains in sinus rhythm at 72/m O2 sats are 95% on room air. 10/24/19 08:06 on walking in the hallway he did very well. Two-person assist but he was able to have a shuffling gait which he states is usual and usually walks with his walker. Was no significant evidence of left leg ataxia or weakness. Some weakness in his left grasp strength and his evidence of pronator drift from the shoulder downwards indicating left arm weakness. Labs are pending. Patient will be given a tetanus shot since they have no record of ever receiving DPT at the [facility]. 10/24/19 08:54 White count is 7.96 with auto differential of 69.2% neutrophils. Hemoglobin is 13.4 with hematocrit of 40.8. MCV is mildly elevated 97.4. Platelet count 240,000. PT 16.5 with an INR of 1.55 somewhat subtherapeutic. PTT is 31. Sodium 137 with potassium of 4.0. Chloride is 99 bicarbonate 28. And a gap is 14.0 BUN is 17 with a creatinine of 0.8 EGFR remains greater than 60. Glucose 137. Calcium 8.9 with an element magnesium of 2.3. Liver function is normal. Total CPK is 64 CK-MB fraction 0.7 with an acute troponin I of less than 0.017. C-reactive protein is elevated at 4.4. BNP is normal at 136. Total protein is 8.0 with an albumin fraction of 3.3. Urinalysis is essentially normal no signs of infection. On further questioning the patient did hit the side of his head about 3-5 weeks ago. No report to Dr. He can report that he had any left-sided weakness or problems after hitting his head at that time. Challenge with water shows that he can swallow appropriately without any choking. I will contact neurosurgery in [facility] to see if they have any concerns about the size of his subdural hematoma. 10/24/19 09:28 spoke with on-call neurosurgeon in [facility] and easily accepted care of this patient. Patient was so advised and will be transferred to that facility at [facility] for definitive neurosurgical management. Tentatively he will be sent by ground ambulance but the roads are very icy at present. Departure - Departure Time of Disposition: 09:42 Disposition: DC/Tfer to Acute Hospital 02 Condition: Fair Clinical Impression: Muscle weakness of left upper extremity, Subtherapeutic international normalized ratio (INR) Subdural hematoma, post-traumatic Qualifiers: Encounter type: initial encounter Loss of consciousness presence/duration: without LOC Qualified Code(s): S06.5X0A - Traumatic subdural hemorrhage without loss of consciousness, initial encounter - Discharge Information *PRESCRIPTION DRUG MONITORING PROGRAM REVIEWED*: Not Applicable *COPY OF PRESCRIPTION DRUG MONITORING REPORT IN PATIENT RUTH: Not Applicable Instructions: Head Injury, Adult Referrals: Casi Rosario PA-C [Primary Care Provider] - Forms: ED Department Discharge - My Orders Last 24 Hours: My Active Orders 10/24/19 07:16 EKG Documentation Completion [RC] STAT 10/24/19 07:17 Blood Culture x2 Reflex Set [OM.PC] Stat 10/24/19 07:30 Dextrose 5%-0.9% NaCl [Dextrose 5%-Normal Saline] 1,000 ml IV ASDIRECTED 10/24/19 07:50 CULTURE BLOOD [BC] Stat 10/24/19 08:05 CULTURE BLOOD [BC] Stat 10/24/19 08:12 Vaccines to be Administered [RC] PER UNIT ROUTINE 10/25/19 05:11 CBC WITH AUTO DIFF [HEME] AM 10/26/19 05:11 CBC WITH AUTO DIFF [HEME] AM 10/27/19 05:11 CBC WITH AUTO DIFF [HEME] AM - Assessment/Plan Last 24 Hours: My Active Orders 10/24/19 07:16 EKG Documentation Completion [RC] STAT 10/24/19 07:17 Blood Culture x2 Reflex Set [OM.PC] Stat 10/24/19 07:30 Dextrose 5%-0.9% NaCl [Dextrose 5%-Normal Saline] 1,000 ml IV ASDIRECTED 10/24/19 07:50 CULTURE BLOOD [BC] Stat 10/24/19 08:05 CULTURE BLOOD [BC] Stat 10/24/19 08:12 Vaccines to be Administered [RC] PER UNIT ROUTINE 10/25/19 05:11 CBC WITH AUTO DIFF [HEME] AM 10/26/19 05:11 CBC WITH AUTO DIFF [HEME] AM 10/27/19 05:11 CBC WITH AUTO DIFF [HEME] AM
[2019-10-24] MEDS ORDERED: Dextrose 5%-0.9% NaCl 1,000 ML IV SCH (07:30)
--- NOTE | 2019-10-24 08:06 | CR ---
Chest: Frontal view of the chest is obtained. Comparison: Prior chest x-ray of 04/15/18. Heart size is normal. Tortuous thoracic aorta is seen. Lungs are clear with no acute parenchymal change. Previous resection of the distal right clavicle is noted. Bony structures are osteopenic. No discrete acute osseous finding is seen. Impression: 1. Nothing acute is seen on frontal chest x-ray. Diagnostic code #2 This report was dictated in [place] Standard Time
[2019-10-24] MEDS ORDERED: Diphtheria,Pertussis(Acell),Tetanus Vaccine 0.5 ML Syringe IM ONE (08:11)
--- NOTE | 2019-10-24 08:13 | CT ---
Head CT Technique: Multiple axial sections through the brain were obtained. Intravenous contrast was not utilized. Comparison: Prior head CT study of 09/13/18. Findings: Subdural hematoma which appears chronic is noted over the right-sided convexity. This causes significant mass effect upon the underlying brain with minimal midline shift. No acute hemorrhage is seen into this subdural hematoma. This is an interval change from previous exam. Mild diminished density is noted within portions of the periventricular white matter compatible with small vessel ischemic demyelination change. Mild generalized atrophy is seen. Atherosclerotic calcification is seen within the carotid siphon and within the vertebral vessels. Retention cysts are noted within both maxillary sinuses. Near complete opacification is noted within the left sphenoid sinus. Mild mucosal thickening is noted within the ethmoids and right frontal sinus. No acute calvarial abnormality is appreciated. Impression: 1. 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 This finding is an interval change from previous exam. 2. Chronic-appearing sinus change. 3. Senescent change as noted above. 4. No acute intracranial hemorrhage is seen at this time. Diagnostic code #3 This report was dictated in [place] Standard Time
--- NOTE | 2019-10-24 08:37 | CR ---
Left shoulder: Three views of the left shoulder were obtained. Comparison: Prior left shoulder exam of 08/29/18 and 08/27/18. No dislocation is seen. Mild degenerative change is noted within the glenohumeral joint and within the acromioclavicular joint. Osteopenia is also noted. Impression: 1. Mild degenerative change and osteopenia. 2. Nothing acute is appreciated on left shoulder study. Diagnostic code #2 This report was dictated in [place] Standard Time
== END 2019-10-24 10:00 ==
LOC: JD.ED 07:01
DX: S06.5X0A Traumatic subdural hemorrhage without loss of consciousness, initial encounter (principal); R53.1 Weakness; R79.1 Abnormal coagulation profile; I10 Essential (primary) hypertension; I25.10 Atherosclerotic heart disease of native coronary artery without angina pectoris; E78.00 Pure hypercholesterolemia, unspecified; I25.2 Old myocardial infarction; J44.9 Chronic obstructive pulmonary disease, unspecified; E11.9 Type 2 diabetes mellitus without complications; N40.0 Benign prostatic hyperplasia without lower urinary tract symptoms; Z79.01 Long term (current) use of anticoagulants; Z79.899 Other long term (current) drug therapy; Z79.82 Long term (current) use of aspirin; Z86.711 Personal history of pulmonary embolism; Z23 Encounter for immunization; Z85.46 Personal history of malignant neoplasm of prostate; W18.30XA Fall on same level, unspecified, initial encounter; Y93.01 Activity, walking, marching and hiking; Y92.009 Unspecified place in unspecified non-institutional (private) residence as the place of occurrence of the external cause
CPT/HCPCS: 36415; 70450; 71045; 73030; 80053; 81001; 82550; 82553; 83735; 83880; 84484; 85025; 85610; 85730; 86140; 87040; 90715; 93005; 99285; G0008; J7042; 93010

== ENCOUNTER 2021-07-07 11:05 | Emergency (ER) | payer MEDICARE, OTHER ==
[2021-07-07] MEDS ORDERED: HYDROmorphone 0.5 MG/0.5 ML Syringe IM ONE (11:43)
--- NOTE | 2021-07-07 11:49 | EDM.PDOC ---
ED HPI GENERAL MEDICAL PROBLEM - General Chief Complaint: General Stated Complaint: RT SIDE PAIN Time Seen by Provider: 07/07/21 11:31 Source of Information: Reports: Patient, Family (daughter), RN Notes Reviewed History Limitations: Reports: No Limitations - History of Present Illness INITIAL COMMENTS - FREE TEXT/NARRATIVE: Patient is an 89-year-old male who presents to the ER for evaluation of left sided chest pain. Patient notes that he took a small fall at the [facility] on Sunday night, went to the clinic yesterday for evaluation they did a chest x- ray and told him that no ribs were broken. Patient is having an increased amount of pain to his left lateral/posterior chest since then. He has only been using Tylenol for pain management as they state that he has to remain functional to stay in the manner, and sometimes when he gets pain medication, he cannot take care of himself. Patient notes that he did not get much sleep over the last few nights, due to the pain, he has to sleep in a recliner, but this is not uncommon for him. Notes that he has pain when he tries to move his arm much at all. Patient denies any other sick-like symptoms, fever/chills, cough/shortness of breath, nausea/vomiting/diarrhea. Treatments VENEER TAPER: Reports: Other (see below) Other Treatments VENEER TAPER: using tylenol Left Axillary Pain Score (Numeric/FACES): 9 - Related Data Allergies Allergy/AdvReac Type Severity Reaction Status Date / Time No Known Allergies Allergy Verified 10/24/19 07:13 Home Meds: Home Meds FA/Lycopene/Lut/MV,Ca,Iron,Min [Centrum] 1 tab PO DAILY 09/20/16 [History] Finasteride 5 mg PO DAILY 09/20/16 [History] Isosorbide Mononitrate [Imdur] 30 mg PO DAILY 09/20/16 [History] Simvastatin [Zocor] 40 mg PO BEDTIME 09/20/16 [History] Aspirin [Halfprin] 81 mg PO DAILY 04/25/18 [History] Nitroglycerin [Nitrostat] 0.4 mg SL ASDIRECTED PRN 04/25/18 [History] Tamsulosin [Flomax] 0.4 mg PO DAILY 04/25/18 [History] Acetaminophen [Tylenol Extra Strength] 500 mg PO Q4H PRN 09/13/19 [History] Amoxicillin 2,000 mg PO ASDIRECTED 09/13/19 [History] Warfarin [Coumadin] 5 mg PO ASDIRECTED 09/13/19 [History] Cefdinir 300 mg PO BID 10/24/19 [History] Metoprolol Succinate 12.5 mg PO DAILY 10/24/19 [History] Solifenacin [Vesicare] 5 mg PO DAILY 10/24/19 [History] Warfarin [Coumadin] 2.5 mg PO ASDIRECTED 10/24/19 [History] Hydrocodone/Acetaminophen [HYDROcodone-Acetaminophen 5-325 MG] 1 each PO Q6H PRN #12 tablet 07/07/21 [Rx] Past Medical History HEENT History: Reports: Hard of Hearing, Impaired Vision Other HEENT History: Bilateral impacted cerumen, epistaxis Cardiovascular History: Reports: CAD, High Cholesterol, [place], SOB on Exertion Respiratory History: Reports: COPD, PE Gastrointestinal History: Reports: Chronic Constipation, Hemorrhoids Other Gastrointestinal History: Abdominal pain, blood in stool, elevated bilirubin Genitourinary History: Reports: BPH, Other (See Below) Other Genitourinary History: Hematuria, urinary frequency. Nocturia usually 2-3 times nightly Musculoskeletal History: Reports: Osteoarthritis Other Musculoskeletal History: Left hip pain, left hand pain, right rib pain Neurological History: Reports: Concussion Psychiatric History: Reports: Anxiety Endocrine/Metabolic History: Reports: Diabetes, Type II Hematologic History: Reports: Anticoagulation Therapy, Other (See Below) Other Hematologic History: Thrombocytopenia, blood clotting disorder. On Coumadin because of this. Oncologic (Cancer) History: Reports: Prostate, Other (See Below) Other Oncologic History: Neoplasm of skin Dermatologic History: Reports: Other (See Below) Other Dermatologic History: Abrasion of face, actinic keratosis, rash - Infectious Disease History Infectious Disease History: Reports: Measles - Past Surgical History HEENT Surgical History: Reports: Cataract Surgery, Tonsillectomy GI Surgical History: Reports: Appendectomy, Colon Other GI Surgeries/Procedures: part of colon removed Male Surgical History: Reports: Other (See Below) Other Male Surgeries/Procedures: prostate biopsy. Musculoskeletal Surgical History: Reports: Hip Replacement, Shoulder Replacement Other Musculoskeletal Surgeries/Procedures:: Right shoulder repair Social & Family History - Family History Family Medical History: No Pertinent Family History Cardiac: Reports: High Cholesterol, [place] Endocrine/Metabolic: Reports: Diabetes, Type I Oncologic: Reports: Other (See Below) Other Oncologic Family History: 2 sisters have cancer, unknown type - Tobacco Use Tobacco Use Status *Q: Never Tobacco User - Caffeine Use Caffeine Use: Reports: None - Recreational Drug Use Recreational Drug Use: No - Living Situation & Occupation Living situation: Reports: Other, Single ED ROS GENERAL - Review of Systems Review Of Systems: Comprehensive ROS is negative, except as noted in HPI. ED EXAM, GENERAL - Physical Exam Exam: See Below Exam Limited By: No Limitations General Appearance: Alert, WD/WN, No Apparent Distress Respiratory/Chest: No Respiratory Distress, Lungs Clear, Normal Breath Sounds, No Accessory Muscle Use, Other (left lateral/posterior chest is tender to palpation) Cardiovascular: Normal Peripheral Pulses, Regular Rate, Rhythm, No Edema Peripheral Pulses: 2+: Radial (L), Radial (R) GI/Abdominal: Normal Bowel Sounds, Soft, Non-Tender, No Distention, No Mass Extremities: Normal Inspection, Normal Range of Motion, Normal Capillary Refill Neurological: Alert, Oriented, Normal Cognition, No Motor/Sensory Deficits Psychiatric: Normal Affect, Normal Mood Skin Exam: Warm, Dry, Intact, No Rash, Ecchymosis (slight ecchymosis noted to patients upper back) Course - Vital Signs Last Recorded V/S: Last Vital Signs Temp 97.6 F 07/07/21 11:32 Pulse 68 07/07/21 12:50 Resp 18 07/07/21 12:50 BP 89/68 L 07/07/21 12:50 Pulse Ox 88 L 07/07/21 12:50 - Orders/Labs/Meds Meds: Medications Discontinued Medications Generic Name Dose Route Start Last Admin Trade Name Freq PRN Reason Stop Dose Admin Hydromorphone HCl 0.5 mg 07/07/21 11:43 07/07/21 11:53 Hydromorphone 0.5 Mg/0.5 Ml Syringe IM 07/07/21 11:44 0.5 mg ONETIME ONE Administration - Re-Assessments/Exams Free Text/Narrative Re-Assessment/Exam: 07/07/21 11:49 Patient presents to the ER for the evaluation of his left chest pain, we will go ahead and get a chest CT, and give him 0.5 mg IM Dilaudid for pain management for evaluation. 07/07/21 13:24 CT demonstrates no acute rib fractures appreciated. There is kyphosis noted within the spine but no acute osseous abnormality. There are no other acute findings appreciated on the noncontrast CT of the chest. Likely that he has a rib cage contusion, and can take some time to heal from. We will go ahead and recommend Tylenol for ongoing management throughout the day, I can give him something stronger for nighttime so he can sleep. We will try to figure out wha t the preference will be and go from there. Departure - Departure Time of Disposition: 13:30 Disposition: Home, Self-Care 01 Condition: Good Clinical Impression: Contusion of back wall of thorax Qualifiers: Encounter type: initial encounter Thoracic wall location detail: left Qualified Code(s): S20.222A - Contusion of left back wall of thorax, initial encounter - Discharge Information *PRESCRIPTION DRUG MONITORING PROGRAM REVIEWED*: Yes *COPY OF PRESCRIPTION DRUG MONITORING REPORT IN PATIENT RUTH: No Instructions: Blunt Chest Trauma Referrals: Casi Rosario PA-C [Primary Care Provider] - Forms: ED Department Discharge Additional Instructions: You were evaluated in the ER today for your left-sided chest wall pain. A chest CT was performed at today's visit, and demonstrate no acute rib fractures or other bony abnormalities of your chest. It is likely you have suffered from a chest wall contusion, which is still very painful and can take some time to get better. You will likely start feeling better in roughly 1 week to 10 days time. You can take 1000 mg Tylenol every 6 hours for ongoing pain management. Do not exceed 4000 mg Tylenol in a 24-hour time span. You were given a prescription for a strong pain medication, hydrocodone/acetaminophen 5/325 mg, please take 1 tab at night for pain not relieved by Tylenol or alone. Please note this medication does contain Tylenol in it, so do not take more than 4000 mg in a 24-hour time span. These medications can be addictive, so please take as few as possible to achieve adequate pain control. These meds can also be quite constipating, recommend that you increase your oral fluid intake and take a stool softener like MiraLAX while taking these medications. Do not drive while taking this medication. This medication prescription was given to your daughter, if you should need more pain management than Tylenol alone, she will need to fill this medication for you to use at nighttime. Do not hesitate to return to the ER at any time if symptoms change or worsen. Sepsis Event Note (ED) - Evaluation Sepsis Screening Result: No Definite Risk - Focused Exam Vital Signs: Vital Signs Temp Pulse Pulse Resp BP Pulse Ox 07/07/21 12:50 68 18 89/68 L 88 L 07/07/21 11:32 97.6 F 82 20 121/77 92 L 07/07/21 11:28 97.6 F 82 20 121/77 92 L
--- NOTE | 2021-07-07 13:09 | CT ---
CT chest Technique: Multiple axial sections were obtained from above the lung apices inferiorly through the lung bases. Intravenous contrast was not utilized. Reconstructed coronal and sagittal images were obtained. Comparison: Prior chest x-ray of 01/14/21, no previous chest CT is available. Prior CT abdomen and pelvis study of 01/20/21. Findings: Thoracic aorta shows atherosclerotic calcification with no aneurysm. Small lymph nodes are seen within the mediastinum which are felt to be within normal limits. No axillary adenopathy is seen. Coronary artery calcification is noted. No pericardial thickening is seen. Large low-density finding is seen within the posterior lobe of the liver most likely representing fatty infiltration. Small calcification is noted within the right kidney compatible with small nonobstructing stone. Diffuse atrophy is noted within the pancreas. These findings are stable from prior CT abdomen and pelvis study. Slight areas of increased density are noted within both posterior lungs most likely representing scarring. Minimal pleural thickening noted posteriorly. No discrete rib fracture is appreciated. Kyphosis is noted within the spine. No acute osseous abnormality is otherwise seen. Impression: 1. Fatty infiltration within the liver. 2. Other findings as described above. 3. Nothing acute is definitely appreciated on noncontrast CT study of the chest. Diagnostic code #2
[2021-07-07 14:00] VITALS: BP 95/70; PULSE 63
== END 2021-07-07 13:55 | disposition home or self-care (01) ==
LOC: JD.ED 11:05
DX: S20.222A Contusion of left back wall of thorax, initial encounter (principal); I25.10 Atherosclerotic heart disease of native coronary artery without angina pectoris; E78.00 Pure hypercholesterolemia, unspecified; I25.2 Old myocardial infarction; J44.9 Chronic obstructive pulmonary disease, unspecified; N40.1 Benign prostatic hyperplasia with lower urinary tract symptoms; R35.0 Frequency of micturition; M19.90 Unspecified osteoarthritis, unspecified site; E11.9 Type 2 diabetes mellitus without complications; Z86.711 Personal history of pulmonary embolism; Z79.01 Long term (current) use of anticoagulants; Z79.82 Long term (current) use of aspirin; Z79.899 Other long term (current) drug therapy; W19.XXXA Unspecified fall, initial encounter; Y92.002 Bathroom of unspecified non-institutional (private) residence as the place of occurrence of the external cause
CPT/HCPCS: 71250; 96372; 99283; J1170

== ENCOUNTER 2022-09-23 11:30 | Emergency (ER) | payer MEDICARE, OTHER ==
[2022-09-23] MEDS ORDERED: Sodium Chloride 0.9% 1,000 ML IV SCH (11:45)
[2022-09-23 12:21] LABS: ESTIMATED GFR 88 mL/min (>60)
[2022-09-23] MEDS ORDERED: Phytonadione 1 MG in Sodium Chloride 0.9% 50 ML IV ONE (13:01)
[2022-09-23 13:38] LABS: CORONAVIRUS COVID-19 NAA NEGATIVE (NEGATIVE)
[2022-09-23 14:22] VITALS: BP 145/79; PULSE 72
== END 2022-09-23 14:15 | disposition home or self-care (01) ==
LOC: JD.ED 11:30
DX: S00.03XA Contusion of scalp, initial encounter (principal); S60.222A Contusion of left hand, initial encounter; I25.10 Atherosclerotic heart disease of native coronary artery without angina pectoris; E78.00 Pure hypercholesterolemia, unspecified; I25.2 Old myocardial infarction; J44.9 Chronic obstructive pulmonary disease, unspecified; E11.9 Type 2 diabetes mellitus without complications; N40.0 Benign prostatic hyperplasia without lower urinary tract symptoms; Z79.82 Long term (current) use of aspirin; Z79.01 Long term (current) use of anticoagulants; Z79.899 Other long term (current) drug therapy; Z20.822 Contact with and (suspected) exposure to COVID-19; W07.XXXA Fall from chair, initial encounter
CPT/HCPCS: 0240U; 36415; 70450; 71045; 73130; 80053; 82947; 83605; 83735; 83880; 85025; 85610; 85652; 85730; 86140; 93005; 96360; 99284; J7030; 93010